=== PATIENT | male | born 1960 | race Two or more races ===

== ENCOUNTER 2017-10-31 12:44 | Inpatient (IN) | payer OTHER ==
[2017-10-31 15:31] VITALS: BMI 19.8
--- NOTE | 2017-10-31 18:37 | HP ---
CIWA Score - CIWA Score Nausea/Vomitin-No Nausea/No Vomiting Muscle Tremors: 3 Anxiety: 2 Agitation: 2 Paroxysmal Sweats: 2 Orientation: 0-Oriented Tacttile Disturbances: 0-None Auditory Disturbances: 0-None Visual Disturbances: 1-Very Mild Sensitivity Headache: 2-Mild CIWA-Ar Total Score: 12 Admission ROS S - HPI Chief Complaint: I am here for detox from alcohol Allergies/Adverse Reactions: Allergies Allergy/AdvReac Type Severity Reaction Status Date / Time No Known Allergies Allergy Verified 10/31/17 17:39 History of Present Illness: 57 yo male with hx of nicotine, alcohol, heroin, and cocaine dependence is her seeking detox. Patient currently enrolled MMTP at [facility] on methadone 70mg , last medicated today. PMHX: asthma / COPD, HTN,hypothyroid, depression, and anxiety. Denies suicuicidal / homical ideation or suicide. Reports longest period of sobrierity 3 years. Last detox at [facility] in 2014. - Ebola screening Have you traveled outside of the country in the last 21 days: No (N) Have you had contact with anyone from an Ebola affected area: No Have you been sick,other than usual withdrawal symptoms: No Do you have a fever: No - Review of Systems Constitutional: Chills, Loss of Appetite EENT: reports: No Symptoms Reported Respiratory: reports: Wheezing Cardiac: reports: No Symptoms Reported, Chest Tightness (reports occurs with asthma flare) GI: reports: Nausea, Poor Fluid Intake : reports: No Symptoms Reported Musculoskeletal: reports: Neck Pain Neuro: reports: Headache Endocrine: reports: See HPI Hematology: reports: No Symptoms Reported Psychiatric: reports: Orientated x3, Anxious Other Systems: Reviewed and Negative Patient History - Patient Medical History Hx Anemia: No Hx Asthma: Yes Hx Chronic Obstructive Pulmonary Disease (COPD): No Hx Cancer: No Hx Cardiac Disorders: No Hx Congestive Heart Failure: No Hx Hypertension: Yes Hx Hypercholesterolemia: No Hx Pacemaker: No HX Cerebrovascular Accident: No Hx Seizures: No Hx Dementia: No Hx Diabetes: No Hx Gastrointestinal Disorders: No Hx Liver Disease: No Hx Genitourinary Disorders: No Hx Sexually Transmitted Disorders: Yes (syphillis ) Hx Renal Disease (ESRD): No Hx Thyroid Disease: Yes (ON SYNTHROID 150 MCG DAILY) Hx Human Immunodeficiency Virus (HIV): No (NEGATIVE IN 2011) Hx Hepatitis C: No Hx Depression: Yes Hx Suicide Attempt: No Hx Bipolar Disorder: No Hx Schizophrenia: No - Patient Surgical History Past Surgical History: No Hx Neurologic Surgery: No Hx Cataract Extraction: No Hx Cardiac Surgery: No Hx Lung Surgery: No Hx Breast Surgery: No Hx Breast Biopsy: No Hx Abdominal Surgery: No Hx Appendectomy: No Hx Cholecystectomy: No Hx Genitourinary Surgery: No Hx Section: No Hx Orthopedic Surgery: No Anesthesia Reaction: No - PPD History Previous Implant?: Yes Documented Results: Negative w/proof Implanted On Prior [facility] Admission?: Yes Date: 09/02/14 PPD to be Administered?: Yes - Reproductive History Patient is a Female of Child Bearing Age (11 -55 yrs old): No - Smoking Cessation Smoking history: Current every day smoker Have you smoked in the past 12 months: Yes Aproximately how many cigarettes per day: 5 Cigars Per Day: 0 Hx Chewing Tobacco Use: No Initiated information on smoking cessation: Yes 'Breaking Loose' booklet given: 10/31/17 - Substance & Tx. History Hx Alcohol Use: Yes Hx Substance Use: Yes Substance Use Type: Alcohol, Cocaine Hx Substance Use Treatment: Yes ([facility] 2014) - Substances Abused Alcohol Route: Oral Frequency: Daily Amount used: beer- 1 six pack Age of first use: 24 Date of Last Use: 10/31/17 Cocaine Route: Inhalation Frequency: Daily Amount used: 1 bag Age of first use: 29 Date of Last Use: 10/27/17 Family Disease History - Family Disease History Family Disease History: Other: Mother (thyroid disease ) Admission Physical Exam S - Vital Signs Vital Signs: Vital Signs - 24 hr 10/31/17 15:28 Temperature 97.2 F L Pulse Rate 72 Respiratory 20 Rate Blood Pressure 119/72 - Physical General Appearance: Yes: Disheveled, Alcohol on Breath, Thin, Sweating, Anxious HEENTM: Yes: EOMI, Hearing grossly Normal, Normal ENT Inspection, Normocephalic , Normal Voice, RUPALI, Pharynx Normal, Tm's normal Respiratory: Yes: Chest Non-Tender, No Respiratory Distress, No Accessory Muscle Use, Wheezing Breast: Yes: Breast Exam Deferred Cardiology: Yes: Regular Rhythm, Regular Rate Abdominal: Yes: Normal Bowel Sounds, Non Tender, Flat Genitourinary: Yes: Within Normal Limits Back: Yes: Normal Inspection Musculoskeletal: Yes: full range of Motion, Gait Steady, Pelvis Stable, Back pain, Other Neurological: Yes: 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, Fully Oriented, Alert, Motor Strength 5/5, Depressed Affect Integumentary: Yes: Within Normal Limits Lymphatic: Yes: Within Normal Limits - Diagnostic (1) Alcohol dependence with withdrawal Current Visit: Yes Status: Acute (2) Cocaine dependence Current Visit: Yes Status: Active (3) Essential hypertension Current Visit: Yes Status: Chronic (4) Hypothyroidism Current Visit: Yes Status: Chronic (5) Methadone maintenance therapy patient Current Visit: Yes Status: Chronic Comment: on methadone 70 mg, dose pending verification (6) Nicotine dependence Current Visit: Yes Status: Acute Qualifiers: Nicotine product type: cigarettes (7) Wheezing Current Visit: Yes Status: Acute (8) Neck pain Current Visit: Yes Status: Acute Cleared for Admission S - Detox or Rehab [facility] Level of Care: Medically Managed Detox Regimen/Protocol: Librium [facility] Breath Alcohol Content Breath Alcohol Content: 0.016 Urine Drug Screen - Results Drug Screen Negative: No Urine Drug Screen Results: MTD-Methadone
[2017-10-31] MEDS ORDERED: MAGNESIUM HYDROX 2400MG/30ML ORAL SUSPENSION 30 ML CUP PO PRN (18:56)
[2017-10-31] MEDS ORDERED: chlordiazePOXIDE HCL 25 MG CAPSULE PO ONE (18:56)
[2017-10-31] MEDS ORDERED: MAG HYDROX/AL HYDROX/SIMETH 30 ML UNIT-DOSE CUP PO PRN (18:56)
[2017-10-31] MEDS ORDERED: IBUPROFEN 400 MG TABLET (FP) PO PRN (18:56)
[2017-10-31] MEDS ORDERED: P-EPHED 60MG/TRIPROLIDI 2.5MG TABLET PO PRN (18:56)
[2017-10-31] MEDS ORDERED: chlordiazePOXIDE HCL 25 MG CAPSULE PO PRN (18:56)
[2017-10-31] MEDS ORDERED: MENTHOL/PHENOL 1 EACH UD MM PRN (18:56)
[2017-10-31] MEDS ORDERED: LOPERAMIDE HCL 2 MG CAPSULE PO PRN (18:56)
[2017-10-31] MEDS ORDERED: MAGNESIUM CITRATE 300 ML BOTTLE PO PRN (18:56)
[2017-10-31] MEDS ORDERED: ACETAMINOPHEN 325 MG TABLET (FP) PO PRN (18:56)
[2017-10-31] MEDS ORDERED: guaiFENesin/D-METHORPHAN HB 10 ML UNIT-DOSE CUPS PO PRN (18:56)
[2017-10-31] MEDS ORDERED: hydrOXYzine PAMOATE 50 MG CAPSULE (FP) PO PRN (18:56)
[2017-10-31] MEDS ORDERED: MELATONIN 5 MG TABLETS PO PRN (22:00)
[2017-10-31] MEDS: THIAMINE HCL 100 MG TABLET (FP) PO SCH (22:16)
[2017-10-31] MEDS: chlordiazePOXIDE HCL 25 MG CAPSULE PO SCH (22:17)
[2017-10-31] MEDS: ALBUTEROL SO4 0.083% IH SOL 2.5 MG/3 ML VIAL.NEB. NEB PRN (23:38)
[2017-11-01 02:10] LABS: URINE APPEARANCE CLEAR; URINE BILIRUBIN NEGATIVE (<2.0 mg/dL); URINE BLOOD NEGATIVE (NEGATIVE); URINE COLOR COLORLESS; URINE GLUCOSE (UA) NEGATIVE (NEGATIVE); URINE KETONE NEGATIVE (NEGATIVE); URINE LEUK ESTERASE NEGATIVE (NEGATIVE); URINE NITRITE NEGATIVE (NEGATIVE); URINE PROTEIN NEGATIVE (NEGATIVE); URINE UROBILINOGEN NEGATIVE mg/dL (0.2-1.0)
[2017-11-01] MEDS ORDERED: LEVOTHYROXINE NA 100 MCG TABLET (FP) ONE (05:42)
[2017-11-01] MEDS ORDERED: LEVOTHYROXINE NA 25 MCG TABLET (FP) ONE (05:42)
[2017-11-01] MEDS: chlordiazePOXIDE HCL 25 MG CAPSULE PO SCH ×4 (05:42→22:18)
[2017-11-01] MEDS: LEVOTHYROXINE 100 MCG, LEVOTHYROXINE 50 MCG PO SCH (06:04)
[2017-11-01] MEDS ORDERED: LEVOTHYROXINE NA 100 MCG TABLET (FP) PO SCH (07:00)
--- NOTE | 2017-11-01 09:34 | EKG ---
Test Reason : Blood Pressure : / mmHG Vent. Rate : 081 BPM Atrial Rate : 081 BPM P-R Int : 154 ms QRS Dur : 088 ms QT Int : 380 ms P-R-T Axes : 075 071 090 degrees QTc Int : 441 ms NORMAL SINUS RHYTHM MINIMAL VOLTAGE CRITERIA FOR LVH, MAY BE NORMAL VARIANT NONSPECIFIC ST AND T WAVE ABNORMALITY ABNORMAL ECG NO PREVIOUS ECGS AVAILABLE Confirmed by CARSON SULLIVAN MD ([id number]) on 11/01/2017 9:34:24 AM Referred By: Confirmed By:CARSON SULLIVAN MD
[2017-11-01 09:56] LABS: HEMATOCRIT 39.6 % (35.4-49); HEMOGLOBIN 13.5 GM/dL (11.7-16.9); MCH 33.9 pg (25.7-33.7); MCHC 34.1 g/dl (32.0-35.9); MEAN CELL VOLUME 99.4 fl (80-96); MEAN PLT VOLUME 8.3 fl (7.5-11.1); PLATELET COUNT 232 K/MM3 (134-434); RBC 3.98 M/mm3 (4.00-5.60); WHITE BLOOD COUNT 6.6 K/mm3 (4.0-10.0)
[2017-11-01 09:57] LABS: ALBUMIN 3.4 g/dl (3.4-5.0); ANION GAP 5 (8-16); BLOOD UREA NITROGEN 8 mg/dL (7-18); CALCIUM 8.7 mg/dL (8.5-10.1); CHLORIDE 101 mmol/L (98-107); CO2 33 mmol/L (21-32); GLUCOSE,RANDOM 85 mg/dL (74-106); SODIUM 139 mmol/L (136-145)
[2017-11-01 10:03] LABS: ALK PHOS 101 U/L (45-117); BILIRUBIN,TOTAL 0.2 mg/dL (0.2-1.0); CREATININE 0.5 mg/dL (0.7-1.3); SGOT/AST 52 U/L (15-37); SGPT/ALT 68 U/L (12-78); TOT PROT 7.2 g/dl (6.4-8.2)
[2017-11-01] MEDS: PRENATAL VITAMINS W/ FOLIC ACID TABLET (FP) PO SCH (10:31)
[2017-11-01] MEDS: amLODIPine BESYLATE 10 MG TABLET (FP) PO SCH (10:31)
[2017-11-01] MEDS: TIOTROPIUM BROMIDE 18 MCG CAPSULES IH SCH (10:31)
[2017-11-01] MEDS: ASPIRIN 81 MG CHEWABLE TABLETS PO SCH (10:31)
[2017-11-01] MEDS ORDERED: METHADONE HCL 10 MG TABLET PO ONE (10:42)
[2017-11-01] MEDS ORDERED: METHADONE 40 MG, METHADONE 30 MG PO ONE (10:55)
[2017-11-01] MEDS ORDERED: METHADONE HCL 10 MG TABLET ONE (12:16)
[2017-11-01] MEDS ORDERED: METHADONE HCL 40 MG DISPERSABLE TABLET ONE (12:17)
--- NOTE | 2017-11-01 12:45 | CONSULT ---
[facility] Psychiatric Consult - Data Date of interview: 11/01/17 Admission source: [facility] Identifying data: Readmission to [facility] for this 57 y/o male seeking detox treatment on for alcohol and cocaine dependence.Patient is single,a father of three,domiciled,unemployed and supported on food stamps. Substance Abuse History: Confirmed by patient in this session.Details in current [facility] report as follows : Smoking history: Current every day smoker. Have you smoked in the past 12 months: Yes. Aproximately how many cigarettes per day: 5. Cigars Per Day: 0. Hx Chewing Tobacco Use: No. Initiated information on smoking cessation: Yes. 'Breaking Loose' booklet given: . - Substance & Tx. History. Hx Alcohol Use: Yes. Hx Substance Use: Yes. Substance Use Type: Alcohol, Cocaine. Hx Substance Use Treatment: Yes ([facility] 2014). - Substances Abused. Alcohol. Route: Oral. Frequency: Daily. Amount used: beer- 1 six pack. Age of first use: 24. Date of Last Use: . Cocaine. Route: Inhalation. Frequency: Daily. Amount used: 1 bag. Age of first use: 29. Date of Last Use: 10/27/17 Medical History: Hypertension,bronchial asthma,hypothyroidism,COPD and a distant history of treatment for syphilis. Psychiatric History: Patient denies history of psychiatric hospitalizations or suicide attempts.Mr Mcgill is currently on methadone maintenance (70 mg/day). Physical/Sexual Abuse/Trauma History: Patient denies. Additional Comment: Urine Drug Screen Results: MTD-Methadone.Noted. Mental Status Exam - Mental Status Exam Alert and Oriented to: Time, Place, Person Cognitive Function: Grossly Intact Patient Appearance: Unkempt (thin habitus,emaciated), Disheveled Mood: Nervous, Withdrawn Affect: Mood Congruent, Constricted Patient Behavior: Passive, Fatigued, Cooperative Speech Pattern: Clear Voice Loudness: Normal Thought Process: Goal Oriented Thought Disorder: Not Present Hallucinations: Denies Suicidal Ideation: Denies Homicidal Ideation: Denies Insight/Judgement: Poor Sleep: Poorly, Difficulty falling asleep Appetite: Poor, Weight loss Muscle strength/Tone: Normal Gait/Station: Normal Psychiatric Findings - Problem List ([place] 1, 2,3) (1) Opioid dependence on agonist therapy Current Visit: Yes Status: Acute (2) Alcohol dependence with withdrawal Current Visit: Yes Status: Acute (3) Cocaine dependence Current Visit: Yes Status: Active Comment: Confirmed by patient.Last use of cocaine : 10/27/17 (toxicology is negative for cocaine). (4) Nicotine dependence Current Visit: Yes Status: Acute Qualifiers: Nicotine product type: cigarettes (5) Insomnia Current Visit: Yes Status: Acute - Initial Treatment Plan Initial Treatment Plan: Psychoeducation.Sleep hygiene.Detoxification in progress.Ambien 5 mg po hs prn.Side effects/benefits discussed with the patient.Mr Mcgill agrees with this careplan.Observation.
--- NOTE | 2017-11-01 13:08 | PN ---
[facility] CIWA - CIWA Score Nausea/Vomitin-No Nausea/No Vomiting Muscle Tremors: 4-Moderate,w/Arms Extend Anxiety: 4-Mod. Anxious/Guarded Agitation: 4-Moderately Restless Paroxysmal Sweats: 1-Minimal Palms Moist Orientation: 0-Oriented Tacttile Disturbances: 0-None Auditory Disturbances: 0-None Visual Disturbances: 0-None Headache: 0-None Present CIWA-Ar Total Score: 13 S Progress Note (SOAP) Subjective: ANXIETY,TREMORS,SWEATS,INTERMITTENT SLEEP. Objective: 11/01/17 13:11 Vital Signs Temperature 97.2 F L 11/01/17 09:08 Pulse Rate 90 11/01/17 12:00 Respiratory Rate 18 11/01/17 12:00 Blood Pressure 114/76 11/01/17 09:08 O2 Sat by Pulse Oximetry (%) Laboratory Last Values WBC 6.6 K/mm3 (4.0-10.0) 11/01/17 08:00 RBC 3.98 M/mm3 (4.00-5.60) L 11/01/17 08:00 Hgb 13.5 GM/dL (11.7-16.9) D 11/01/17 08:00 Hct 39.6 % (35.4-49) 11/01/17 08:00 MCV 99.4 fl (80-96) H 11/01/17 08:00 MCH 33.9 pg (25.7-33.7) H 11/01/17 08:00 MCHC 34.1 g/dl (32.0-35.9) 11/01/17 08:00 RDW 13.0 % (11.9-15.9) 11/01/17 08:00 Plt Count 232 K/MM3 (134-434) 11/01/17 08:00 MPV 8.3 fl (7.5-11.1) 11/01/17 08:00 Sodium 139 mmol/L (136-145) 11/01/17 08:00 Potassium 4.0 mmol/L (3.5-5.1) 11/01/17 08:00 Chloride 101 mmol/L (98-107) 11/01/17 08:00 Carbon Dioxide 33 mmol/L (21-32) H 11/01/17 08:00 Anion Gap 5 (8-16) L 11/01/17 08:00 BUN 8 mg/dL (7-18) D 11/01/17 08:00 Creatinine 0.5 mg/dL (0.7-1.3) L 11/01/17 08:00 Creat Clearance w eGFR > 60 (>60) 11/01/17 08:00 Random Glucose 85 mg/dL (74-106) D 11/01/17 08:00 Calcium 8.7 mg/dL (8.5-10.1) 11/01/17 08:00 Total Bilirubin 0.2 mg/dL (0.2-1.0) D 11/01/17 08:00 AST 52 U/L (15-37) H D 11/01/17 08:00 ALT 68 U/L (12-78) D 11/01/17 08:00 Alkaline Phosphatase 101 U/L (45-117) 11/01/17 08:00 Total Protein 7.2 g/dl (6.4-8.2) 11/01/17 08:00 Albumin 3.4 g/dl (3.4-5.0) 11/01/17 08:00 Urine Color Colorless 11/01/17 00:05 Urine Appearance Clear 11/01/17 00:05 Urine pH 7.0 (5.0-8.0) 11/01/17 00:05 Ur Specific [place] 1.002 (1.001-1.035) 11/01/17 00:05 Urine Protein Negative (NEGATIVE) 11/01/17 00:05 Urine Glucose (UA) Negative (NEGATIVE) 11/01/17 00:05 Urine Ketones Negative (NEGATIVE) 11/01/17 00:05 Urine Blood Negative (NEGATIVE) 11/01/17 00:05 Urine Nitrite Negative (NEGATIVE) 11/01/17 00:05 Urine Bilirubin Negative (<2.0 mg/dL) 11/01/17 00:05 Urine Urobilinogen Negative mg/dL (0.2-1.0) 11/01/17 00:05 Ur Leukocyte Esterase Negative (NEGATIVE) 11/01/17 00:05 Assessment: 11/01/17 13:12 WITHDRAWAL SX Plan: CONTINUE DETOX INCREASE PO FLUIDS
[2017-11-01 15:23] LABS: RPR REACTIVE 1:1 (NONREACTIVE)
[2017-11-01 15:24] LABS: TREPONEMA ANTIBODY PREVIOUSLY REACTIVE (NONREACTIVE)
[2017-11-01] MEDS ORDERED: ZOLPIDEM TARTRATE 5 MG TABLET PO PRN (22:00)
[2017-11-01] MEDS: THIAMINE HCL 100 MG TABLET (FP) PO SCH (22:18)
[2017-11-02] MEDS ORDERED: METHADONE HCL 10 MG TABLET ONE (04:43)
[2017-11-02] MEDS ORDERED: LEVOTHYROXINE NA 100 MCG TABLET (FP) ONE (04:44)
[2017-11-02] MEDS ORDERED: METHADONE HCL 40 MG DISPERSABLE TABLET ONE (04:44)
[2017-11-02] MEDS ORDERED: LEVOTHYROXINE NA 25 MCG TABLET (FP) ONE (04:44)
[2017-11-02] MEDS: chlordiazePOXIDE HCL 25 MG CAPSULE PO SCH ×3 (05:41→17:41)
[2017-11-02] MEDS: METHADONE 40 MG, METHADONE 30 MG PO SCH (05:42)
[2017-11-02] MEDS ORDERED: METHADONE HCL 10 MG TABLET PO SCH (06:00)
[2017-11-02] MEDS: LEVOTHYROXINE 100 MCG, LEVOTHYROXINE 50 MCG PO SCH (07:44)
[2017-11-02] MEDS: ASPIRIN 81 MG CHEWABLE TABLETS PO SCH (10:37)
[2017-11-02] MEDS: PRENATAL VITAMINS W/ FOLIC ACID TABLET (FP) PO SCH (10:37)
[2017-11-02] MEDS: amLODIPine BESYLATE 10 MG TABLET (FP) PO SCH (10:38)
[2017-11-02] MEDS: TIOTROPIUM BROMIDE 18 MCG CAPSULES IH SCH (10:38)
--- NOTE | 2017-11-02 17:56 | PN ---
[facility] CIWA - CIWA Score Nausea/Vomitin-No Nausea/No Vomiting Muscle Tremors: None Anxiety: 4-Mod. Anxious/Guarded Agitation: 3 Paroxysmal Sweats: 3 Orientation: 2-Disoriented Date<2 days Tacttile Disturbances: 0-None Auditory Disturbances: 1-Very Mild Visual Disturbances: 2-Mild Sensitivity Headache: 0-None Present CIWA-Ar Total Score: 15 S Progress Note (SOAP) Subjective: Stomach Cramping, Body Aches, Fatigue, Sweating. Objective: PATIENT A & O X 2 (UNCERTAIN ABOUT CURRENT DAY/ DATE). PATIENT OBSERVED AMBULATING ON UNIT. NO ACUTE DISTRESS. 11/02/17 17:57 Vital Signs Temperature 98.4 F 11/02/17 10:37 Pulse Rate 78 11/02/17 10:37 Respiratory Rate 20 11/02/17 10:37 Blood Pressure 124/90 11/02/17 10:37 O2 Sat by Pulse Oximetry (%) Laboratory Tests 11/01/17 11/01/17 11/01/17 00:05 08:00 08:00 WBC 6.6 RBC 3.98 L Hgb 13.5 D Hct 39.6 MCV 99.4 H MCH 33.9 H MCHC 34.1 RDW 13.0 Plt Count 232 MPV 8.3 Sodium 139 Potassium 4.0 Chloride 101 Carbon Dioxide 33 H Anion Gap 5 L BUN 8 D Creatinine 0.5 L Creat Clearance w eGFR > 60 Random Glucose 85 D Calcium 8.7 Total Bilirubin 0.2 D AST 52 H D ALT 68 D Alkaline Phosphatase 101 Total Protein 7.2 Albumin 3.4 Urine Color Colorless Urine Appearance Clear Urine pH 7.0 Ur Specific [place] 1.002 Urine Protein Negative Urine Glucose (UA) Negative Urine Ketones Negative Urine Blood Negative Urine Nitrite Negative Urine Bilirubin Negative Urine Urobilinogen Negative Ur Leukocyte Esterase Negative RPR Titer T.pallidum Ab (A) 11/01/17 08:00 WBC RBC Hgb Hct MCV MCH MCHC RDW Plt Count MPV Sodium Potassium Chloride Carbon Dioxide Anion Gap BUN Creatinine Creat Clearance w eGFR Random Glucose Calcium Total Bilirubin AST ALT Alkaline Phosphatase Total Protein Albumin Urine Color Urine Appearance Urine pH Ur Specific [place] Urine Protein Urine Glucose (UA) Urine Ketones Urine Blood Urine Nitrite Urine Bilirubin Urine Urobilinogen Ur Leukocyte Esterase RPR Titer Reactive 1:1 H T.pallidum Ab (A) Previously reactive LABS NOTED. Assessment: 11/02/17 17:58 WITHDRAWAL SYMPTOMS. Plan: CONTINUE DETOX.
[2017-11-02] MEDS: ALBUTEROL SO4 0.083% IH SOL 2.5 MG/3 ML VIAL.NEB. NEB PRN (18:47)
[2017-11-02] MEDS: chlordiazePOXIDE 5 MG CAPSULE PO SCH (22:28)
[2017-11-02] MEDS: THIAMINE HCL 100 MG TABLET (FP) PO SCH (22:28)
[2017-11-03] MEDS ORDERED: METHADONE HCL 10 MG TABLET ONE (04:18)
[2017-11-03] MEDS ORDERED: METHADONE HCL 40 MG DISPERSABLE TABLET ONE (04:19)
[2017-11-03] MEDS ORDERED: LEVOTHYROXINE NA 25 MCG TABLET (FP) ONE (04:21)
[2017-11-03] MEDS ORDERED: LEVOTHYROXINE NA 100 MCG TABLET (FP) ONE (04:21)
[2017-11-03] MEDS: METHADONE 40 MG, METHADONE 30 MG PO SCH (05:56)
[2017-11-03] MEDS: chlordiazePOXIDE 5 MG CAPSULE PO SCH ×3 (05:56→17:14)
[2017-11-03] MEDS: LEVOTHYROXINE 100 MCG, LEVOTHYROXINE 50 MCG PO SCH (07:38)
[2017-11-03] MEDS: ASPIRIN 81 MG CHEWABLE TABLETS PO SCH (10:38)
[2017-11-03] MEDS: PRENATAL VITAMINS W/ FOLIC ACID TABLET (FP) PO SCH (10:38)
[2017-11-03] MEDS: amLODIPine BESYLATE 10 MG TABLET (FP) PO SCH (10:38)
[2017-11-03] MEDS: TIOTROPIUM BROMIDE 18 MCG CAPSULES IH SCH (10:38)
--- NOTE | 2017-11-03 12:35 | PN ---
[facility] Progress Note (SOAP) Subjective: sweats interrupted sleep body aches Objective: 11/03/17 12:34 Vital Signs Temperature 97.2 F L 11/03/17 10:47 Pulse Rate 76 11/03/17 10:47 Respiratory Rate 18 11/03/17 10:47 Blood Pressure 107/67 11/03/17 10:47 O2 Sat by Pulse Oximetry (%) aaox3 ambulating no acute distress Assessment: 11/03/17 12:36 withdrawal sx Plan: continue detox increase fluids d/c in am
[2017-11-03] MEDS: chlordiazePOXIDE HCL 10 MG CAPSULE PO SCH (22:24)
[2017-11-03] MEDS: THIAMINE HCL 100 MG TABLET (FP) PO SCH (22:24)
[2017-11-04] MEDS ORDERED: METHADONE HCL 40 MG DISPERSABLE TABLET ONE (03:17)
[2017-11-04] MEDS ORDERED: LEVOTHYROXINE NA 25 MCG TABLET (FP) ONE (03:17)
[2017-11-04] MEDS ORDERED: METHADONE HCL 10 MG TABLET ONE (03:17)
[2017-11-04] MEDS ORDERED: LEVOTHYROXINE NA 100 MCG TABLET (FP) ONE (03:18)
[2017-11-04] MEDS: chlordiazePOXIDE HCL 10 MG CAPSULE PO SCH ×2 (05:23→11:17)
[2017-11-04] MEDS: METHADONE 40 MG, METHADONE 30 MG PO SCH (05:23)
[2017-11-04] MEDS: LEVOTHYROXINE 100 MCG, LEVOTHYROXINE 50 MCG PO SCH (06:45)
[2017-11-04] MEDS: PRENATAL VITAMINS W/ FOLIC ACID TABLET (FP) PO SCH (10:27)
[2017-11-04] MEDS: ASPIRIN 81 MG CHEWABLE TABLETS PO SCH (10:27)
[2017-11-04] MEDS: amLODIPine BESYLATE 10 MG TABLET (FP) PO SCH (10:27)
[2017-11-04] MEDS: TIOTROPIUM BROMIDE 18 MCG CAPSULES IH SCH (10:27)
--- NOTE | 2017-11-04 12:13 | PN ---
[facility] Progress Note (SOAP) Subjective: PT APPEARS VERY WEAK AND TIRED. SPEECH SLIGHTLY SLURRED. C/O SORE THROAT AND RUNNY NOSE. 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 Objective: 11/04/17 12:09 Vital Signs Temperature 96.3 F L 11/04/17 09:23 Pulse Rate 91 H 11/04/17 09:23 Respiratory Rate 18 11/04/17 09:23 Blood Pressure 120/74 11/04/17 09:23 O2 Sat by Pulse Oximetry (%) Laboratory Last Values WBC 6.6 K/mm3 (4.0-10.0) 11/01/17 08:00 RBC 3.98 M/mm3 (4.00-5.60) L 11/01/17 08:00 Hgb 13.5 GM/dL (11.7-16.9) D 11/01/17 08:00 Hct 39.6 % (35.4-49) 11/01/17 08:00 MCV 99.4 fl (80-96) H 11/01/17 08:00 MCH 33.9 pg (25.7-33.7) H 11/01/17 08:00 MCHC 34.1 g/dl (32.0-35.9) 11/01/17 08:00 RDW 13.0 % (11.9-15.9) 11/01/17 08:00 Plt Count 232 K/MM3 (134-434) 11/01/17 08:00 MPV 8.3 fl (7.5-11.1) 11/01/17 08:00 Sodium 139 mmol/L (136-145) 11/01/17 08:00 Potassium 4.0 mmol/L (3.5-5.1) 11/01/17 08:00 Chloride 101 mmol/L (98-107) 11/01/17 08:00 Carbon Dioxide 33 mmol/L (21-32) H 11/01/17 08:00 Anion Gap 5 (8-16) L 11/01/17 08:00 BUN 8 mg/dL (7-18) D 11/01/17 08:00 Creatinine 0.5 mg/dL (0.7-1.3) L 11/01/17 08:00 Creat Clearance w eGFR > 60 (>60) 11/01/17 08:00 Random Glucose 85 mg/dL (74-106) D 11/01/17 08:00 Calcium 8.7 mg/dL (8.5-10.1) 11/01/17 08:00 Total Bilirubin 0.2 mg/dL (0.2-1.0) D 11/01/17 08:00 AST 52 U/L (15-37) H D 11/01/17 08:00 ALT 68 U/L (12-78) D 11/01/17 08:00 Alkaline Phosphatase 101 U/L (45-117) 11/01/17 08:00 Total Protein 7.2 g/dl (6.4-8.2) 11/01/17 08:00 Albumin 3.4 g/dl (3.4-5.0) 11/01/17 08:00 Urine Color Colorless 11/01/17 00:05 Urine Appearance Clear 11/01/17 00:05 Urine pH 7.0 (5.0-8.0) 11/01/17 00:05 Ur Specific [place] 1.002 (1.001-1.035) 11/01/17 00:05 Urine Protein Negative (NEGATIVE) 11/01/17 00:05 Urine Glucose (UA) Negative (NEGATIVE) 11/01/17 00:05 Urine Ketones Negative (NEGATIVE) 11/01/17 00:05 Urine Blood Negative (NEGATIVE) 11/01/17 00:05 Urine Nitrite Negative (NEGATIVE) 11/01/17 00:05 Urine Bilirubin Negative (<2.0 mg/dL) 11/01/17 00:05 Urine Urobilinogen Negative mg/dL (0.2-1.0) 11/01/17 00:05 Ur Leukocyte Esterase Negative (NEGATIVE) 11/01/17 00:05 RPR Titer Reactive 1:1 (NONREACTIVE) H 11/01/17 08:00 T.pallidum Ab (MHA) Previously reactive (NONREACTIVE) 11/01/17 08:00 THROAT:NO REDNESS OR SWELLING OR EXUDATES NOTED. NASAL DRAINAGE Assessment: 11/04/17 12:10 WITHDRAWAL SX R/O URI-VIRAL Plan: CONTINUE DETOX MONITOR PT AND INCREASE PO FLUIDS REASSESS IN THE MORNING FOR DISCHARGE.
[2017-11-04] MEDS: THIAMINE HCL 100 MG TABLET (FP) PO SCH (22:08)
[2017-11-05] MEDS ORDERED: METHADONE HCL 40 MG DISPERSABLE TABLET ONE (04:41)
[2017-11-05] MEDS ORDERED: LEVOTHYROXINE NA 25 MCG TABLET (FP) ONE (04:41)
[2017-11-05] MEDS ORDERED: METHADONE HCL 10 MG TABLET ONE (04:41)
[2017-11-05] MEDS ORDERED: LEVOTHYROXINE NA 100 MCG TABLET (FP) ONE (04:42)
[2017-11-05] MEDS: METHADONE 40 MG, METHADONE 30 MG PO SCH (05:30)
[2017-11-05] MEDS: LEVOTHYROXINE 100 MCG, LEVOTHYROXINE 50 MCG PO SCH (07:20)
[2017-11-05] MEDS: amLODIPine BESYLATE 10 MG TABLET (FP) PO SCH (10:33)
[2017-11-05] MEDS: PRENATAL VITAMINS W/ FOLIC ACID TABLET (FP) PO SCH (10:33)
[2017-11-05] MEDS: ASPIRIN 81 MG CHEWABLE TABLETS PO SCH (10:33)
[2017-11-05] MEDS: TIOTROPIUM BROMIDE 18 MCG CAPSULES IH SCH (10:34)
[2017-11-05] MEDS ORDERED: ALBUTEROL SO4 18 GM HFA INHALER IH PRN (11:52)
--- NOTE | 2017-11-05 11:56 | PN ---
[facility] Progress Note (SOAP) Subjective: PT IS ALERT O X 3. DETOX COMPLETED. HOWEVER PT C/O DIZZINESS AND DIFFICULTY CATCHING HIS BREATH. ALSO C/O THROAT PAIN BUT NO COUGH OR RUNNING NOSE.OOB WITH GAIT SLIGHTLY UNSTEADY. DENIES N/V/D. REPORTS GETTING CHECKED OUT FOR SIMILAR COMPLAINT AT [facility] 2 WEEKS AGO AND CATSCAN AND TESTS DONE WAS NEGATIVE AND WENT HOME. PT IS CURRENTLY AT A [facility] AND WILL FOLLOW UP WITH REFERRAL TREATMENT PROGRAM AFTER D/C AT [facility] PER COUNSELOR CHAI SCHULTZ. Objective: 11/05/17 12:15 Vital Signs Temperature 96.2 F L 11/05/17 09:11 Pulse Rate 85 11/05/17 09:11 Respiratory Rate 18 11/05/17 09:11 Blood Pressure 115/71 11/05/17 09:11 O2 Sat by Pulse Oximetry (%) Laboratory Last Values WBC 6.6 K/mm3 (4.0-10.0) 11/01/17 08:00 RBC 3.98 M/mm3 (4.00-5.60) L 11/01/17 08:00 Hgb 13.5 GM/dL (11.7-16.9) D 11/01/17 08:00 Hct 39.6 % (35.4-49) 11/01/17 08:00 MCV 99.4 fl (80-96) H 11/01/17 08:00 MCH 33.9 pg (25.7-33.7) H 11/01/17 08:00 MCHC 34.1 g/dl (32.0-35.9) 11/01/17 08:00 RDW 13.0 % (11.9-15.9) 11/01/17 08:00 Plt Count 232 K/MM3 (134-434) 11/01/17 08:00 MPV 8.3 fl (7.5-11.1) 11/01/17 08:00 Sodium 139 mmol/L (136-145) 11/01/17 08:00 Potassium 4.0 mmol/L (3.5-5.1) 11/01/17 08:00 Chloride 101 mmol/L (98-107) 11/01/17 08:00 Carbon Dioxide 33 mmol/L (21-32) H 11/01/17 08:00 Anion Gap 5 (8-16) L 11/01/17 08:00 BUN 8 mg/dL (7-18) D 11/01/17 08:00 Creatinine 0.5 mg/dL (0.7-1.3) L 11/01/17 08:00 Creat Clearance w eGFR > 60 (>60) 11/01/17 08:00 Random Glucose 85 mg/dL (74-106) D 11/01/17 08:00 Calcium 8.7 mg/dL (8.5-10.1) 11/01/17 08:00 Total Bilirubin 0.2 mg/dL (0.2-1.0) D 11/01/17 08:00 AST 52 U/L (15-37) H D 11/01/17 08:00 ALT 68 U/L (12-78) D 11/01/17 08:00 Alkaline Phosphatase 101 U/L (45-117) 11/01/17 08:00 Total Protein 7.2 g/dl (6.4-8.2) 11/01/17 08:00 Albumin 3.4 g/dl (3.4-5.0) 11/01/17 08:00 Urine Color Colorless 11/01/17 00:05 Urine Appearance Clear 11/01/17 00:05 Urine pH 7.0 (5.0-8.0) 11/01/17 00:05 Ur Specific [place] 1.002 (1.001-1.035) 11/01/17 00:05 Urine Protein Negative (NEGATIVE) 11/01/17 00:05 Urine Glucose (UA) Negative (NEGATIVE) 11/01/17 00:05 Urine Ketones Negative (NEGATIVE) 11/01/17 00:05 Urine Blood Negative (NEGATIVE) 11/01/17 00:05 Urine Nitrite Negative (NEGATIVE) 11/01/17 00:05 Urine Bilirubin Negative (<2.0 mg/dL) 11/01/17 00:05 Urine Urobilinogen Negative mg/dL (0.2-1.0) 11/01/17 00:05 Ur Leukocyte Esterase Negative (NEGATIVE) 11/01/17 00:05 RPR Titer Reactive 1:1 (NONREACTIVE) H 11/01/17 08:00 T.pallidum Ab (MHA) Previously reactive (NONREACTIVE) 11/01/17 08:00 LUNGS:CLEAR TO A/P PULSE OX: 97% ROOM AIR THROAT: NO REDNESS,SWELLING OR EXUDATE NOTED. Assessment: 11/05/17 12:15 SYNCOPE Plan: TRANSFER PT TO [facility] FOR EVALUATION AND TX. PT WILL FOLLOW UP WITH AFTERCARE AT [facility] [place] AFTER D/C.
[2017-11-05] MEDS: ALBUTEROL SO4 0.083% IH SOL 2.5 MG/3 ML VIAL.NEB. NEB PRN (12:21)
[2017-11-05 12:38] VITALS: BP 105/64; PULSE 73; TEMP 95.6
--- NOTE | 2017-11-05 13:21 | PN ---
[facility] Progress Note Note: PT REFUSED TO GO TO [facility] ER TO GET EVALUATED BEFORE GOING HOME. PT STATED HE WANTS TO GO TO [facility] IF HE NEEDS TO DO SO. PT BECAME VERY AGITATED THAT DOCTORS AND HOSPITALS ASK TOO MANY QUESTTIONS ABOUT HIS HEALTH WHEREVER AND WHENEVER HE GOES SOMEWHERE. PT SIGNED AGAINST RECEIVING FURTHER EVALUATION AT THE ER. HE APPEARS ALERT O X 3. NO OBVIOUS ACUTE DISTRESS. RECEI SYLVAIN NEBULIZER TX AND PULSE OX OF 93% TO 98%. PT REPORTS HE HAS ALL HIS MEDS AT HOME BUT NEEDS ALBUTEROL INHALER ONLY. PT WAS GIVEN SAME FOR HOME USE.
== END 2017-11-05 13:16 | disposition home or self-care (01) | DRG 773 ==
LOC: YASAS 12:44 → Y3N 18:37
PROVIDERS: ADMIT Internal Medicine; ATTEND Internal Medicine
PROC: HZ2ZZZZ Detoxification Services for Substance Abuse Treatment (ICD-10-PCS; principal; 2017-10-31)
DX: F11.20 Opioid dependence, uncomplicated (principal); F10.230 Alcohol dependence with withdrawal, uncomplicated; F14.20 Cocaine dependence, uncomplicated; F17.210 Nicotine dependence, cigarettes, uncomplicated; G47.00 Insomnia, unspecified; I10 Essential (primary) hypertension; E03.9 Hypothyroidism, unspecified; J45.909 Unspecified asthma, uncomplicated; R55 Syncope and collapse; Z86.19 Personal history of other infectious and parasitic diseases; R06.2 Wheezing; M54.2 Cervicalgia
CPT/HCPCS: 36415; 80053; 81003; 85027; 86593; 86780; 93005; 93010; 94640

== ENCOUNTER 2018-06-24 12:24 | Inpatient (IN) | payer OTHER ==
[2018-06-24 13:14] VITALS: BMI 19.6
--- NOTE | 2018-06-24 14:08 | HP ---
CIWA Score Nausea/Vomitin Muscle Tremors: 2 Anxiety: 2 Agitation: 2 Paroxysmal Sweats: 1-Minimal Palms Moist Orientation: 0-Oriented Tacttile Disturbances: 1-Very Mild Itch/Numbness Auditory Disturbances: 1-Very Mild Visual Disturbances: 0-None Headache: 2-Mild CIWA-Ar Total Score: 13 - Admission Criteria OASAS Guidelines: Admission for Medically Managed Detox: Requires at least one of the followin. CIWA greater than 12 2. Seizures within the past 24 hours 3. Delirium tremens within the past 24 hours 4. Hallucinations within the past 24 hours 5. Acute intervention needed for co occurring medical disorder 6. Acute intervention needed for co occurring psychiatric disorder 7. Severe withdrawal that cannot be handled at a lower level of care (continued vomiting, continued diarrhea, abnormal vital signs) requiring intravenous medication and/or fluids 8. Patient presents the following: CIWA greater than 12 Admission Criteria Met: Admission criteria met Admission ROS BHS - HPI Chief Complaint: i need help to stop drinking alcohol,cocaine Allergies/Adverse Reactions: Allergies Allergy/AdvReac Type Severity Reaction Status Date / Time No Known Allergies Allergy Verified 06/24/18 14:00 History of Present Illness: this 58 years old male with alcohol and cocaine dependence seeking detox, withdrawal symptom,last detox [facility] 10/31/17 to 11/05/17 syncope history of hypertension,hypothyroidism nicotine dependence weight loss mmtp 70 mgs/day,last medicated today copd longest period of sobriety 6 moths Exam Limitations: No Limitations - Ebola screening Have you traveled outside of the country in the last 21 days: No Have you had contact with anyone from an Ebola affected area: No Have you been sick,other than usual withdrawal symptoms: No - Review of Systems Constitutional: Loss of Appetite, Malaise, Night Sweats, Changes in sleep, Weakness, Unintentional Wgt. Loss EENT: reports: Nose Congestion Respiratory: reports: No Symptoms reported Cardiac: reports: No Symptoms Reported GI: reports: Diarrhea, Nausea, Vomiting, Abdominal cramping : reports: No Symptoms Reported Musculoskeletal: reports: Back Pain, Muscle Pain Integumentary: reports: Dryness Neuro: reports: Headache, Tremors Endocrine: reports: No Symptoms Reported Hematology: reports: No Symptoms Reported Psychiatric: reports: No Sypmtoms Reported, Judgement Intact, Mood/Affect Appropiate, Orientated x3 Patient History - Patient Medical History Hx Anemia: No Hx Asthma: Yes Hx Chronic Obstructive Pulmonary Disease (COPD): Yes (on spiriva) Hx Cancer: No Hx Cardiac Disorders: No Hx Congestive Heart Failure: No Hx Hypertension: Yes (on medication) Hx Hypercholesterolemia: No Hx Pacemaker: No HX Cerebrovascular Accident: No Hx Seizures: No Hx Dementia: No Hx Diabetes: No Hx Gastrointestinal Disorders: No Hx Liver Disease: No Hx Genitourinary Disorders: No Hx Sexually Transmitted Disorders: Yes (syphilis) Hx Renal Disease (ESRD): No Hx Thyroid Disease: Yes (ON SYNTHROID 150 MCG DAILY) Hx Human Immunodeficiency Virus (HIV): No (NEGATIVE IN 08/08) Hx Hepatitis C: No Hx Depression: Yes Hx Suicide Attempt: No Hx Bipolar Disorder: No Hx Schizophrenia: No Other Medical History: no suicidal,no homicidal - Patient Surgical History Past Surgical History: No Hx Neurologic Surgery: No Hx Cataract Extraction: No Hx Cardiac Surgery: No Hx Lung Surgery: No Hx Breast Surgery: No Hx Breast Biopsy: No Hx Abdominal Surgery: No Hx Appendectomy: No Hx Cholecystectomy: No Hx Genitourinary Surgery: No Hx Section: No Hx Orthopedic Surgery: No Anesthesia Reaction: No - PPD History Previous Implant?: Yes Documented Results: Negative w/proof Implanted On Prior [facility] Admission?: Yes Date: 11/02/17 Results: 0 mm PPD to be Administered?: No - Smoking Cessation Smoking history: Current every day smoker Have you smoked in the past 12 months: Yes Aproximately how many cigarettes per day: 5 Cigars Per Day: 0 Hx Chewing Tobacco Use: No Initiated information on smoking cessation: Yes 'Breaking Loose' booklet given: 06/24/18 - Substance & Tx. History Hx Alcohol Use: Yes Hx Substance Use: Yes Substance Use Type: Alcohol, Cocaine Hx Substance Use Treatment: Yes ([facility] 10/31/17 to 11/05/17) - Substances Abused Alcohol Route: Oral Frequency: Daily Amount used: 18 beers/ 1/2 pint liquor Age of first use: 14 Date of Last Use: 06/24/18 Cocaine Route: Inhalation Frequency: Daily Amount used: $30 Age of first use: 29 Date of Last Use: 06/23/18 Family Disease History - Family Disease History Family Disease History: Other: Mother (thyroid disease ) Admission Physical Exam BHS - Vital Signs Vital Signs: Vital Signs - 24 hr 06/24/18 13:13 Temperature 96 F L Pulse Rate 80 Respiratory 18 Rate Blood Pressure 157/92 - Physical General Appearance: Yes: Moderate Distress, Tremorous, Irritable, Sweating, Anxious HEENTM: Yes: Normal ENT Inspection, RUPALI, Pharynx Normal Respiratory: Yes: Lungs Clear, Normal Breath Sounds, No Respiratory Distress Neck: Yes: Within Normal Limits, Supple, Trachea in good position Breast: Yes: Within Normal Limits Cardiology: Yes: Within Normal Limits, Regular Rhythm, Regular Rate, S1, S2 Abdominal: Yes: Within Normal Limits, Normal Bowel Sounds, Non Tender, Flat, Soft Genitourinary: Yes: Within Normal Limits Back: Yes: Muscle Spasm Musculoskeletal: Yes: Back pain, Muscle Pain Extremities: Yes: Within Normal Limits, Normal Range of Motion, Tremors Neurological: Yes: [employer] II-XII NML intact, Alert, Motor Strength 5/5 Integumentary: Yes: Dry Lymphatic: Yes: Within Normal Limits - Diagnostic (1) Alcohol dependence with withdrawal Current Visit: No Status: Acute Qualifiers: Complication of substance-induced condition: uncomplicated Qualified Code(s ): F10.230 - Alcohol dependence with withdrawal, uncomplicated (2) Cocaine dependence Current Visit: No Status: Active Comment: Confirmed by patient.Last use of cocaine : 10/27/17 (toxicology is negative for cocaine). (3) Nicotine dependence Current Visit: No Status: Acute Qualifiers: Nicotine product type: cigarettes Substance use status: in withdrawal Qualified Code(s): F17.213 - Nicotine dependence, cigarettes, with withdrawal (4) Essential hypertension Current Visit: No Status: Chronic (5) Hypothyroidism Current Visit: No Status: Chronic (6) Methadone maintenance therapy patient Current Visit: No Status: Chronic Comment: on methadone 70 mg, dose pending verification Cleared for Admission [facility] - Detox or Rehab [facility] Level of Care: Medically Managed Detox Regimen/Protocol: Librium [facility] Breath Alcohol Content Breath Alcohol Content: 0.029 Urine Drug Screen - Results Drug Screen Negative: No Urine Drug Screen Results: ELVA-Cocaine, MTD-Methadone
[2018-06-24] MEDS ORDERED: chlordiazePOXIDE HCL 25 MG CAPSULE PO PRN (14:18)
[2018-06-24] MEDS ORDERED: MAGNESIUM CITRATE 300 ML BOTTLE PO PRN (14:19)
[2018-06-24] MEDS ORDERED: P-EPHED 60MG/TRIPROLIDI 2.5MG TABLET PO PRN (14:19)
[2018-06-24] MEDS ORDERED: MENTHOL/PHENOL 1 EACH UD MM PRN (14:19)
[2018-06-24] MEDS ORDERED: IBUPROFEN 400 MG TABLET (FP) PO PRN (14:19)
[2018-06-24] MEDS ORDERED: LOPERAMIDE HCL 2 MG CAPSULE PO PRN (14:19)
[2018-06-24] MEDS ORDERED: hydrOXYzine PAMOATE 25 MG CAPSULE (FP) PO PRN (14:19)
[2018-06-24] MEDS ORDERED: ACETAMINOPHEN 325 MG TABLET (FP) PO PRN (14:19)
[2018-06-24] MEDS ORDERED: guaiFENesin/D-METHORPHAN HB 10 ML UNIT-DOSE CUPS PO PRN (14:19)
[2018-06-24] MEDS ORDERED: MAGNESIUM HYDROX 2400MG/30ML ORAL SUSPENSION 30 ML CUP PO PRN (14:19)
[2018-06-24] MEDS ORDERED: MAG HYDROX/AL HYDROX/SIMETH 30 ML UNIT-DOSE CUP PO PRN (14:19)
[2018-06-24] MEDS: chlordiazePOXIDE HCL 25 MG CAPSULE PO SCH ×2 (18:18→22:01)
[2018-06-24] MEDS ORDERED: MELATONIN 5 MG TABLETS PO PRN (22:00)
[2018-06-24] MEDS: THIAMINE HCL 100 MG TABLET (FP) PO SCH (22:01)
[2018-06-24] MEDS: TIOTROPIUM BROMIDE 2.5 MCG (SPIRIVA) RESPIMAT INHALER IH SCH (23:25)
[2018-06-25] MEDS: chlordiazePOXIDE HCL 25 MG CAPSULE PO SCH ×4 (05:49→22:27)
[2018-06-25] MEDS: LEVOTHYROXINE 100 MCG, LEVOTHYROXINE 50 MCG PO SCH (06:33)
[2018-06-25] MEDS ORDERED: METHADONE HCL 10 MG TABLET PO SCH (07:30)
[2018-06-25] MEDS ORDERED: METHADONE HCL 40 MG DISPERSABLE TABLET ONE (08:43)
[2018-06-25] MEDS ORDERED: METHADONE HCL 10 MG TABLET ONE (08:44)
[2018-06-25] MEDS ORDERED: LEVOTHYROXINE NA 150 MCG TABLET PO SCH (10:00)
[2018-06-25] MEDS ORDERED: PATIENT'S OWN MEDICATION (NON-FORMULARY) (Tiotropium Bromide [Spiriva] 18 MCG) IH SCH (10:00)
[2018-06-25] MEDS: METHADONE 40 MG, METHADONE 30 MG PO SCH (10:28)
[2018-06-25] MEDS: ASPIRIN 81 MG CHEWABLE TABLETS PO SCH (10:28)
[2018-06-25] MEDS: PRENATAL VITAMINS W/ FOLIC ACID TABLET (FP) PO SCH (10:28)
[2018-06-25] MEDS: amLODIPine BESYLATE 10 MG TABLET (FP) PO SCH (10:28)
[2018-06-25 10:53] LABS: ALBUMIN 3.6 g/dl (3.4-5.0); ALK PHOS 115 U/L (45-117); ANION GAP 7 MMOL/L (8-16); BILIRUBIN,TOTAL 0.3 mg/dL (0.2-1); BLOOD UREA NITROGEN 9 mg/dL (7-18); CALCIUM 8.8 mg/dL (8.5-10.1); CHLORIDE 100 mmol/L (98-107); CO2 31 mmol/L (21-32); CREATININE 0.7 mg/dL (0.55-1.3); GLUCOSE,RANDOM 85 mg/dL (74-106); POTASSIUM 4.5 mmol/L (3.5-5.1); SGOT/AST 43 U/L (15-37); SGPT/ALT 31 U/L (13-61); SODIUM 137 mmol/L (136-145); TOT PROT 8.2 g/dl (6.4-8.2)
[2018-06-25 11:24] LABS: HEMATOCRIT 41.1 % (35.4-49); HEMOGLOBIN 14.6 GM/dL (11.7-16.9); MCH 34.8 pg (25.7-33.7); MCHC 35.5 g/dl (32.0-35.9); MEAN CELL VOLUME 97.9 fl (80-96); MEAN PLT VOLUME 9.3 fl (7.5-11.1); PLATELET COUNT 295 K/MM3 (134-434); RDW 13.8 % (11.9-15.9); WHITE BLOOD COUNT 8.3 K/mm3 (4.0-10.0)
--- NOTE | 2018-06-25 14:04 | PN ---
S CIWA - CIWA Score Nausea/Vomitin-Mild Nausea/No Vomiting Muscle Tremors: 3 Anxiety: 2 Agitation: 1-Slight > Activity Paroxysmal Sweats: 1-Minimal Palms Moist Orientation: 0-Oriented Tacttile Disturbances: 0-None Auditory Disturbances: 0-None Visual Disturbances: 0-None Headache: 1-Very Mild CIWA-Ar Total Score: 9 BHS Progress Note (SOAP) Subjective: tremor sweat trouble sleep at night Objective: 06/25/18 14:18 Vital Signs Temperature 97.9 F 06/25/18 13:54 Pulse Rate 69 06/25/18 13:54 Respiratory Rate 18 06/25/18 13:54 Blood Pressure 111/70 06/25/18 13:54 O2 Sat by Pulse Oximetry (%) Laboratory Last Values WBC 8.3 K/mm3 (4.0-10.0) 06/25/18 05:00 RBC 4.20 M/mm3 (4.00-5.60) 06/25/18 05:00 Hgb 14.6 GM/dL (11.7-16.9) 06/25/18 05:00 Hct 41.1 % (35.4-49) 06/25/18 05:00 MCV 97.9 fl (80-96) H 06/25/18 05:00 MCH 34.8 pg (25.7-33.7) H 06/25/18 05:00 MCHC 35.5 g/dl (32.0-35.9) 06/25/18 05:00 RDW 13.8 % (11.9-15.9) 06/25/18 05:00 Plt Count 295 K/MM3 (134-434) D 06/25/18 05:00 MPV 9.3 fl (7.5-11.1) D 06/25/18 05:00 Sodium 137 mmol/L (136-145) 06/25/18 05:00 Potassium 4.5 mmol/L (3.5-5.1) 06/25/18 05:00 Chloride 100 mmol/L (98-107) 06/25/18 05:00 Carbon Dioxide 31 mmol/L (21-32) 06/25/18 05:00 Anion Gap 7 MMOL/L (8-16) L 06/25/18 05:00 BUN 9 mg/dL (7-18) 06/25/18 05:00 Creatinine 0.7 mg/dL (0.55-1.3) 06/25/18 05:00 Creat Clearance w eGFR > 60 (>60) 06/25/18 05:00 Random Glucose 85 mg/dL (74-106) 06/25/18 05:00 Calcium 8.8 mg/dL (8.5-10.1) 06/25/18 05:00 Total Bilirubin 0.3 mg/dL (0.2-1) 06/25/18 05:00 AST 43 U/L (15-37) H 06/25/18 05:00 ALT 31 U/L (13-61) 06/25/18 05:00 Alkaline Phosphatase 115 U/L (45-117) 06/25/18 05:00 Total Protein 8.2 g/dl (6.4-8.2) 06/25/18 05:00 Albumin 3.6 g/dl (3.4-5.0) 06/25/18 05:00 lab noted Assessment: 06/25/18 14:20 withdrawal sx Plan: continue detox
[2018-06-25] MEDS: TIOTROPIUM BROMIDE 2.5 MCG (SPIRIVA) RESPIMAT INHALER IH SCH (15:32)
[2018-06-25] MEDS: THIAMINE HCL 100 MG TABLET (FP) PO SCH (22:27)
[2018-06-26] MEDS ORDERED: METHADONE HCL 40 MG DISPERSABLE TABLET ONE (05:37)
[2018-06-26] MEDS: METHADONE 40 MG, METHADONE 30 MG PO SCH (05:38)
[2018-06-26] MEDS ORDERED: METHADONE HCL 10 MG TABLET ONE (05:38)
[2018-06-26] MEDS ORDERED: LEVOTHYROXINE NA 100 MCG TABLET (FP) ONE (05:38)
[2018-06-26] MEDS: chlordiazePOXIDE HCL 25 MG CAPSULE PO SCH ×2 (05:38→10:35)
[2018-06-26] MEDS ORDERED: LEVOTHYROXINE NA 25 MCG TABLET (FP) ONE (05:38)
[2018-06-26] MEDS: LEVOTHYROXINE 100 MCG, LEVOTHYROXINE 50 MCG PO SCH (06:41)
[2018-06-26] MEDS: ASPIRIN 81 MG CHEWABLE TABLETS PO SCH (10:35)
[2018-06-26] MEDS: amLODIPine BESYLATE 10 MG TABLET (FP) PO SCH (10:35)
[2018-06-26] MEDS: TIOTROPIUM BROMIDE 2.5 MCG (SPIRIVA) RESPIMAT INHALER IH SCH (10:35)
[2018-06-26] MEDS: PRENATAL VITAMINS W/ FOLIC ACID TABLET (FP) PO SCH (10:35)
--- NOTE | 2018-06-26 10:56 | PN ---
S CIWA - CIWA Score Nausea/Vomitin-Mild Nausea/No Vomiting Muscle Tremors: 3 Anxiety: 2 Agitation: 2 Paroxysmal Sweats: 1-Minimal Palms Moist Orientation: 0-Oriented Tacttile Disturbances: 0-None Auditory Disturbances: 0-None Visual Disturbances: 0-None Headache: 0-None Present CIWA-Ar Total Score: 9 BHS Progress Note (SOAP) Subjective: tremor sweat restlessness anxiety trouble sleep at night Objective: 06/26/18 10:55 Vital Signs Temperature 96.4 F L 06/26/18 09:02 Pulse Rate 70 06/26/18 09:02 Respiratory Rate 16 06/26/18 09:02 Blood Pressure 109/76 06/26/18 09:02 O2 Sat by Pulse Oximetry (%) Laboratory Last Values WBC 8.3 K/mm3 (4.0-10.0) 06/25/18 05:00 RBC 4.20 M/mm3 (4.00-5.60) 06/25/18 05:00 Hgb 14.6 GM/dL (11.7-16.9) 06/25/18 05:00 Hct 41.1 % (35.4-49) 06/25/18 05:00 MCV 97.9 fl (80-96) H 06/25/18 05:00 MCH 34.8 pg (25.7-33.7) H 06/25/18 05:00 MCHC 35.5 g/dl (32.0-35.9) 06/25/18 05:00 RDW 13.8 % (11.9-15.9) 06/25/18 05:00 Plt Count 295 K/MM3 (134-434) D 06/25/18 05:00 MPV 9.3 fl (7.5-11.1) D 06/25/18 05:00 Sodium 137 mmol/L (136-145) 06/25/18 05:00 Potassium 4.5 mmol/L (3.5-5.1) 06/25/18 05:00 Chloride 100 mmol/L (98-107) 06/25/18 05:00 Carbon Dioxide 31 mmol/L (21-32) 06/25/18 05:00 Anion Gap 7 MMOL/L (8-16) L 06/25/18 05:00 BUN 9 mg/dL (7-18) 06/25/18 05:00 Creatinine 0.7 mg/dL (0.55-1.3) 06/25/18 05:00 Creat Clearance w eGFR > 60 (>60) 06/25/18 05:00 Random Glucose 85 mg/dL (74-106) 06/25/18 05:00 Calcium 8.8 mg/dL (8.5-10.1) 06/25/18 05:00 Total Bilirubin 0.3 mg/dL (0.2-1) 06/25/18 05:00 AST 43 U/L (15-37) H 06/25/18 05:00 ALT 31 U/L (13-61) 06/25/18 05:00 Alkaline Phosphatase 115 U/L (45-117) 06/25/18 05:00 Total Protein 8.2 g/dl (6.4-8.2) 06/25/18 05:00 Albumin 3.6 g/dl (3.4-5.0) 06/25/18 05:00 lab noted Assessment: 06/26/18 10:55 withdrawal sx Plan: continue detox
[2018-06-26 11:34] LABS: RPR REACTIVE 1:1 (NONREACTIVE)
[2018-06-26 11:38] LABS: TREPONEMA ANTIBODY PREVIOUSLY REACTIVE (NONREACTIVE)
[2018-06-26] MEDS: chlordiazePOXIDE 5 MG CAPSULE PO SCH ×2 (17:29→22:14)
[2018-06-26] MEDS: THIAMINE HCL 100 MG TABLET (FP) PO SCH (22:14)
[2018-06-27] MEDS ORDERED: METHADONE HCL 40 MG DISPERSABLE TABLET ONE (02:40)
[2018-06-27] MEDS ORDERED: METHADONE HCL 10 MG TABLET ONE (02:41)
[2018-06-27] MEDS ORDERED: LEVOTHYROXINE NA 25 MCG TABLET (FP) ONE (02:41)
[2018-06-27] MEDS ORDERED: LEVOTHYROXINE NA 100 MCG TABLET (FP) ONE (02:41)
[2018-06-27] MEDS: chlordiazePOXIDE 5 MG CAPSULE PO SCH ×2 (06:10→10:28)
[2018-06-27] MEDS: LEVOTHYROXINE 100 MCG, LEVOTHYROXINE 50 MCG PO SCH (06:11)
[2018-06-27] MEDS: METHADONE 40 MG, METHADONE 30 MG PO SCH (06:11)
[2018-06-27] MEDS: PRENATAL VITAMINS W/ FOLIC ACID TABLET (FP) PO SCH (10:26)
[2018-06-27] MEDS: ASPIRIN 81 MG CHEWABLE TABLETS PO SCH (10:27)
[2018-06-27] MEDS: amLODIPine BESYLATE 10 MG TABLET (FP) PO SCH (10:27)
--- NOTE | 2018-06-27 11:30 | PN ---
BHS Progress Note (SOAP) Subjective: I feel better , a little shakes Objective: 06/27/18 11:29 Vital Signs Temperature 97.7 F 06/27/18 06:00 Pulse Rate 75 06/27/18 06:00 Respiratory Rate 18 06/27/18 06:00 Blood Pressure 135/89 06/27/18 06:00 O2 Sat by Pulse Oximetry (%) Laboratory Tests 06/25/18 06/25/18 06/25/18 05:00 05:00 05:00 WBC 8.3 RBC 4.20 Hgb 14.6 Hct 41.1 MCV 97.9 H MCH 34.8 H MCHC 35.5 RDW 13.8 Plt Count 295 D MPV 9.3 D Sodium 137 Potassium 4.5 Chloride 100 Carbon Dioxide 31 Anion Gap 7 L BUN 9 Creatinine 0.7 Creat Clearance w eGFR > 60 Random Glucose 85 Calcium 8.8 Total Bilirubin 0.3 AST 43 H ALT 31 Alkaline Phosphatase 115 Total Protein 8.2 Albumin 3.6 RPR Titer Reactive 1:1 H T.pallidum Ab (A) Previously reactive pt sitting watching tv in nad mid tremor Assessment: 06/27/18 11:30 withdrawal sx's Plan: cont. detox increase fluids d/c in am
[2018-06-27] MEDS: TIOTROPIUM BROMIDE 2.5 MCG (SPIRIVA) RESPIMAT INHALER IH SCH (11:43)
[2018-06-27] MEDS: chlordiazePOXIDE HCL 10 MG CAPSULE PO SCH ×2 (18:02→22:16)
[2018-06-27] MEDS: THIAMINE HCL 100 MG TABLET (FP) PO SCH (22:16)
[2018-06-28] MEDS ORDERED: METHADONE HCL 40 MG DISPERSABLE TABLET ONE (06:00)
[2018-06-28] MEDS ORDERED: LEVOTHYROXINE NA 25 MCG TABLET (FP) ONE (06:01)
[2018-06-28] MEDS ORDERED: METHADONE HCL 10 MG TABLET ONE (06:01)
[2018-06-28] MEDS ORDERED: LEVOTHYROXINE NA 100 MCG TABLET (FP) ONE (06:02)
[2018-06-28] MEDS: LEVOTHYROXINE 100 MCG, LEVOTHYROXINE 50 MCG PO SCH (06:37)
[2018-06-28] MEDS: METHADONE 40 MG, METHADONE 30 MG PO SCH (06:37)
[2018-06-28] MEDS: chlordiazePOXIDE HCL 10 MG CAPSULE PO SCH ×2 (06:37→13:34)
[2018-06-28] MEDS: ASPIRIN 81 MG CHEWABLE TABLETS PO SCH (09:49)
[2018-06-28] MEDS: amLODIPine BESYLATE 10 MG TABLET (FP) PO SCH (09:49)
[2018-06-28] MEDS: PRENATAL VITAMINS W/ FOLIC ACID TABLET (FP) PO SCH (09:49)
[2018-06-28] MEDS: TIOTROPIUM BROMIDE 2.5 MCG (SPIRIVA) RESPIMAT INHALER IH SCH (09:49)
--- NOTE | 2018-06-28 12:34 | PN ---
S Progress Note (SOAP) Subjective: Dizzy, generalized weakness, interrupted sleep with non-specific c/o not feeling well Objective: 06/28/18 12:31 Patient is examined in bed, appears tired and weak, he c/o dizziness. He has no signs of respiratory distress. Vital Signs - 8 hr 06/28/18 06/28/18 06/28/18 06:53 09:19 09:21 Temperature 97.7 F 97.3 F L 97.3 F L Pulse Rate 75 75 76 Respiratory 18 18 18 Rate Blood Pressure 131/96 135/74 126/84 VSS Laboratory Last Values WBC 8.3 K/mm3 (4.0-10.0) 06/25/18 05:00 RBC 4.20 M/mm3 (4.00-5.60) 06/25/18 05:00 Hgb 14.6 GM/dL (11.7-16.9) 06/25/18 05:00 Hct 41.1 % (35.4-49) 06/25/18 05:00 MCV 97.9 fl (80-96) H 06/25/18 05:00 MCH 34.8 pg (25.7-33.7) H 06/25/18 05:00 MCHC 35.5 g/dl (32.0-35.9) 06/25/18 05:00 RDW 13.8 % (11.9-15.9) 06/25/18 05:00 Plt Count 295 K/MM3 (134-434) D 06/25/18 05:00 MPV 9.3 fl (7.5-11.1) D 06/25/18 05:00 Sodium 137 mmol/L (136-145) 06/25/18 05:00 Potassium 4.5 mmol/L (3.5-5.1) 06/25/18 05:00 Chloride 100 mmol/L (98-107) 06/25/18 05:00 Carbon Dioxide 31 mmol/L (21-32) 06/25/18 05:00 Anion Gap 7 MMOL/L (8-16) L 06/25/18 05:00 BUN 9 mg/dL (7-18) 06/25/18 05:00 Creatinine 0.7 mg/dL (0.55-1.3) 06/25/18 05:00 Creat Clearance w eGFR > 60 (>60) 06/25/18 05:00 Random Glucose 85 mg/dL (74-106) 06/25/18 05:00 Calcium 8.8 mg/dL (8.5-10.1) 06/25/18 05:00 Total Bilirubin 0.3 mg/dL (0.2-1) 06/25/18 05:00 AST 43 U/L (15-37) H 06/25/18 05:00 ALT 31 U/L (13-61) 06/25/18 05:00 Alkaline Phosphatase 115 U/L (45-117) 06/25/18 05:00 Total Protein 8.2 g/dl (6.4-8.2) 06/25/18 05:00 Albumin 3.6 g/dl (3.4-5.0) 06/25/18 05:00 RPR Titer Reactive 1:1 (NONREACTIVE) H 06/25/18 05:00 T.pallidum Ab (MHA) Previously reactive (NONREACTIVE) 06/25/18 05:00 Labs noted, dated 06/25, no panic values Assessment: 06/28/18 12:32 Withdrawal sx Fatigue/malaise Plan: Continue to monitor, may be transferred to [facility] rehab today
[2018-06-28] MEDS: THIAMINE HCL 100 MG TABLET (FP) PO SCH (22:27)
[2018-06-29] MEDS ORDERED: LEVOTHYROXINE NA 100 MCG TABLET (FP) ONE (05:11)
[2018-06-29] MEDS ORDERED: METHADONE HCL 40 MG DISPERSABLE TABLET ONE (05:11)
[2018-06-29] MEDS ORDERED: METHADONE HCL 10 MG TABLET ONE (05:11)
[2018-06-29] MEDS ORDERED: LEVOTHYROXINE NA 25 MCG TABLET (FP) ONE (05:11)
[2018-06-29] MEDS: METHADONE 40 MG, METHADONE 30 MG PO SCH (06:32)
[2018-06-29] MEDS: LEVOTHYROXINE 100 MCG, LEVOTHYROXINE 50 MCG PO SCH (06:32)
[2018-06-29 06:54] VITALS: TEMP 98.1
[2018-06-29 09:51] VITALS: BP 115/70; PULSE 82
--- NOTE | 2018-06-29 15:29 | DS ---
[facility] Detox Discharge Summary Admission Date: 06/24/18 Discharge Date: 06/29/18 - History Present History: Alcohol Dependence Additional Comments: 58 years old male admitted on 06/24/18 for alcohol withdrawal sx completed detox regimen tolerated well alert no acute distress aftercare [place] - Physical Exam Results Vital Signs: Vital Signs Temperature 98.1 F 06/29/18 09:51 Pulse Rate 82 06/29/18 09:51 Respiratory Rate 16 06/29/18 09:51 Blood Pressure 115/70 06/29/18 09:51 O2 Sat by Pulse Oximetry (%) Pertinent Admission Physical Exam Findings: alcohol withdrawal sx Vital Signs Temperature 98.1 F 06/29/18 09:51 Pulse Rate 82 06/29/18 09:51 Respiratory Rate 16 06/29/18 09:51 Blood Pressure 115/70 06/29/18 09:51 O2 Sat by Pulse Oximetry (%) Laboratory Last Values WBC 8.3 K/mm3 (4.0-10.0) 06/25/18 05:00 RBC 4.20 M/mm3 (4.00-5.60) 06/25/18 05:00 Hgb 14.6 GM/dL (11.7-16.9) 06/25/18 05:00 Hct 41.1 % (35.4-49) 06/25/18 05:00 MCV 97.9 fl (80-96) H 06/25/18 05:00 MCH 34.8 pg (25.7-33.7) H 06/25/18 05:00 MCHC 35.5 g/dl (32.0-35.9) 06/25/18 05:00 RDW 13.8 % (11.9-15.9) 06/25/18 05:00 Plt Count 295 K/MM3 (134-434) D 06/25/18 05:00 MPV 9.3 fl (7.5-11.1) D 06/25/18 05:00 Sodium 137 mmol/L (136-145) 06/25/18 05:00 Potassium 4.5 mmol/L (3.5-5.1) 06/25/18 05:00 Chloride 100 mmol/L (98-107) 06/25/18 05:00 Carbon Dioxide 31 mmol/L (21-32) 06/25/18 05:00 Anion Gap 7 MMOL/L (8-16) L 06/25/18 05:00 BUN 9 mg/dL (7-18) 06/25/18 05:00 Creatinine 0.7 mg/dL (0.55-1.3) 06/25/18 05:00 Creat Clearance w eGFR > 60 (>60) 06/25/18 05:00 Random Glucose 85 mg/dL (74-106) 06/25/18 05:00 Calcium 8.8 mg/dL (8.5-10.1) 06/25/18 05:00 Total Bilirubin 0.3 mg/dL (0.2-1) 06/25/18 05:00 AST 43 U/L (15-37) H 06/25/18 05:00 ALT 31 U/L (13-61) 06/25/18 05:00 Alkaline Phosphatase 115 U/L (45-117) 06/25/18 05:00 Total Protein 8.2 g/dl (6.4-8.2) 06/25/18 05:00 Albumin 3.6 g/dl (3.4-5.0) 06/25/18 05:00 RPR Titer Reactive 1:1 (NONREACTIVE) H 06/25/18 05:00 T.pallidum Ab (MHA) Previously reactive (NONREACTIVE) 06/25/18 05:00 lab noted - Treatment Hospital Course: Detox Protocol Followed, Detoxed Safely, Responded well, Discharged Condition Good, Rehab Referral Accepted Patient has Accepted a Rehab Referral to: [facility] - Medication Discharge Medications: Ambulatory Orders Folic Acid - 1 mg PO DAILY 04/14/12 Tiotropium [place] [Spiriva] 18 mcg IH DAILY #30 cap.w.dev 03/23/13 Amlodipine Besylate [Norvasc -] 10 mg PO DAILY #30 tablet 06/27/18 Aspirin [ASA -] 81 mg PO DAILY #30 tab.chew 06/27/18 Levothyroxine [Synthroid -] 150 mcg PO DAILY #30 tablet 06/27/18 Tiotropium [place] [Spiriva Respimat] 2 puff IH DAILY #30 inhaler 06/27/18 - Diagnosis (1) Syphilis contact, treated Status: Resolved (2) Hypothyroidism Status: Chronic (3) Essential hypertension Status: Chronic (4) Asthma Status: Chronic (5) Nicotine dependence Status: Acute Qualifiers: Nicotine product type: cigarettes Substance use status: in withdrawal Qualified Code(s): F17.213 - Nicotine dependence, cigarettes, with withdrawal (6) Alcohol dependence with withdrawal Status: Acute Qualifiers: Complication of substance-induced condition: uncomplicated Qualified Code(s ): F10.230 - Alcohol dependence with withdrawal, uncomplicated - AMA Did Patient Leave Against Medical Advice: No
== END 2018-06-29 09:45 | disposition home or self-care (01) | DRG 773 ==
LOC: YASAS 12:24 → Y6N 14:17
PROC: HZ2ZZZZ Detoxification Services for Substance Abuse Treatment (ICD-10-PCS; principal; 2018-06-24)
DX: F10.230 Alcohol dependence with withdrawal, uncomplicated (principal); F14.20 Cocaine dependence, uncomplicated; F11.20 Opioid dependence, uncomplicated; F17.210 Nicotine dependence, cigarettes, uncomplicated; I10 Essential (primary) hypertension; J44.9 Chronic obstructive pulmonary disease, unspecified; J45.909 Unspecified asthma, uncomplicated; E03.9 Hypothyroidism, unspecified; R55 Syncope and collapse; R63.4 Abnormal weight loss; Z68.1 Body mass index [BMI] 19.9 or less, adult; Z20.2 Contact with and (suspected) exposure to infections with a predominantly sexual mode of transmission; Z86.19 Personal history of other infectious and parasitic diseases
CPT/HCPCS: 36415; 80053; 85027; 86593; 86780

== ENCOUNTER 2019-01-02 12:06 | Inpatient (IN) | payer OTHER ==
[2019-01-02 20:45] VITALS: BMI 23.6
--- NOTE | 2019-01-02 21:39 | HP ---
CIWA Score Nausea/Vomitin-No Nausea/No Vomiting Muscle Tremors: 4-Moderate,w/Arms Extend Anxiety: 4-Mod. Anxious/Guarded Agitation: 4-Moderately Restless Paroxysmal Sweats: 3 Orientation: 0-Oriented Tacttile Disturbances: 0-None Auditory Disturbances: 0-None Visual Disturbances: 0-None Headache: 2-Mild CIWA-Ar Total Score: 17 - Admission Criteria OASAS Guidelines: Admission for Medically Managed Detox: Requires at least one of the followin. CIWA greater than 12 2. Seizures within the past 24 hours 3. Delirium tremens within the past 24 hours 4. Hallucinations within the past 24 hours 5. Acute intervention needed for co occurring medical disorder 6. Acute intervention needed for co occurring psychiatric disorder 7. Severe withdrawal that cannot be handled at a lower level of care (continued vomiting, continued diarrhea, abnormal vital signs) requiring intravenous medication and/or fluids 8. Patient presents the following: CIWA greater than 12 Admission Criteria Met: Admission criteria met Admission ROS [facility] Chief Complaint: C/O WITHDRAWAL SX'S Allergies/Adverse Reactions: Allergies Allergy/AdvReac Type Severity Reaction Status Date / Time No Known Allergies Allergy Verified 01/02/19 20:36 History of Present Illness: 58 Y.O. MALE WITH HX/O ALCOHOLISM, OPIOID AND COCAINE DEPENDENCE HERE FOR DETOX. CLIENT IS ON MMTP 70 MG FROM [facility]. REPORTS LAST MEDICATED TODAY. HE IS SELF REFERRED. KNOWN TO THIS PROGRAM LAST ADMISSION 06/2018. REPORTS MOST CLEAN TIME 3 MONTHS.RELAPSING 4 MONTHS AGO. DENIES HX/O BLACKOUTS, SI/HI/AVH. DOMICILED, UNEMPLOYED, DENIES LEGALS Exam Limitations: No Limitations - Ebola screening Have you traveled outside of the country in the last 21 days: No (N) Have you had contact with anyone from an Ebola affected area: No Do you have a fever: No - Review of Systems Constitutional: Chills, Loss of Appetite, Night Sweats, Changes in sleep, Unintentional Wgt. Loss EENT: reports: Dental Problems (MISSING TEETH) Respiratory: reports: No Symptoms reported Cardiac: reports: No Symptoms Reported GI: reports: Poor Appetite, Poor Fluid Intake : reports: No Symptoms Reported (NO C/O) Musculoskeletal: reports: Back Pain (CHRONIC) Integumentary: reports: Flushing, Sweating Neuro: reports: Headache, Tremors Endocrine: reports: Flushing, Other (HYPOTHYROIDISM) Hematology: reports: No Symptoms Reported Psychiatric: reports: Orientated x3, Anxious Other Systems: Reviewed and Negative Patient History - Patient Medical History Hx Anemia: No Hx Asthma: Yes Hx Chronic Obstructive Pulmonary Disease (COPD): Yes (on spiriva) Hx Cancer: No Hx Cardiac Disorders: No Hx Congestive Heart Failure: No Hx Hypertension: Yes (on medication) Hx Hypercholesterolemia: No Hx Pacemaker: No HX Cerebrovascular Accident: No Hx Seizures: No Hx Dementia: No Hx Diabetes: No Hx Gastrointestinal Disorders: No Hx Liver Disease: No Hx Genitourinary Disorders: No Hx Sexually Transmitted Disorders: Yes (syphilis) Hx Renal Disease (ESRD): No Hx Thyroid Disease: Yes (ON SYNTHROID 150 MCG DAILY) Hx Human Immunodeficiency Virus (HIV): No (NEGATIVE IN 08/08) Hx Hepatitis C: No Hx Depression: Yes Hx Suicide Attempt: No Hx Bipolar Disorder: No Hx Schizophrenia: No - Patient Surgical History Past Surgical History: No Hx Neurologic Surgery: No Hx Cataract Extraction: No Hx Cardiac Surgery: No Hx Lung Surgery: No Hx Breast Surgery: No Hx Breast Biopsy: No Hx Abdominal Surgery: No Hx Appendectomy: No Hx Cholecystectomy: No Hx Genitourinary Surgery: No Hx Section: No Hx Orthopedic Surgery: No Anesthesia Reaction: No - PPD History Previous Implant?: Yes Documented Results: Negative w/proof Implanted On Prior [facility] Admission?: Yes Date: 11/02/17 Results: 0 mm PPD to be Administered?: Yes - Smoking Cessation Smoking history: Former smoker Have you smoked in the past 12 months: Yes Aproximately how many cigarettes per day: 5 (QUIT 4 MONTHS AGO) Cigars Per Day: 0 Hx Chewing Tobacco Use: No Initiated information on smoking cessation: No - Substance & Tx. History Hx Alcohol Use: Yes Hx Substance Use: Yes Substance Use Type: Alcohol, Cocaine Hx Substance Use Treatment: Yes ([facility]) - Substances abused Alcohol Substance route: Oral Frequency: Daily Amount used: 10 BEER Age of first use: 17 Date of last use: 01/02/19 Cocaine Substance route: Smoking Frequency: Daily Amount used: 1 BAG Age of first use: 29 Date of last use: 01/02/19 Family Disease History - Family Disease History Family Disease History: Other: Mother (thyroid disease ) Admission Physical Exam BHS - Vital Signs Vital Signs: Vital Signs - 24 hr 01/02/19 20:38 Temperature 98.7 F Pulse Rate 82 Respiratory 18 Rate Blood Pressure 179/94 H - Physical General Appearance: Yes: Moderate Distress, Tremorous, Anxious, Other (FLUSHED) HEENTM: Yes: Normocephalic, Normal Voice, RUPALI, Pharynx Normal, Other (POOR DENTITION) Respiratory: Yes: Chest Non-Tender, Lungs Clear, Normal Breath Sounds, No Respiratory Distress, No Accessory Muscle Use Neck: Yes: No masses,lesions,Nodules, Supple, Trachea in good position Breast: Yes: Breast Exam Deferred Cardiology: Yes: Regular Rhythm, Regular Rate, S1, S2 Abdominal: Yes: Non Tender, Soft, Increased Bowel Sounds Genitourinary: Yes: Within Normal Limits (NO C/O) Back: Yes: Normal Inspection Musculoskeletal: Yes: full range of Motion, Gait Steady Extremities: Yes: Normal Capillary Refill, Normal Range of Motion, Non-Tender, Tremors Neurological: Yes: Fully Oriented, Alert, Motor Strength 5/5, Depressed Affect Integumentary: Yes: Dry, Warm, Other (FLUSHED) Lymphatic: Yes: Within Normal Limits - Diagnostic (1) Substance induced mood disorder Current Visit: Yes Status: Suspected (2) Cocaine dependence Current Visit: Yes Status: Active (3) Alcohol dependence with withdrawal Current Visit: Yes Status: Acute Qualifiers: Complication of substance-induced condition: uncomplicated Qualified Code(s ): F10.230 - Alcohol dependence with withdrawal, uncomplicated (4) Asthma Current Visit: Yes Status: Chronic (5) Essential hypertension Current Visit: Yes Status: Chronic (6) Hypothyroidism Current Visit: Yes Status: Chronic (7) Methadone maintenance therapy patient Current Visit: Yes Status: Chronic Comment: on methadone 70 mg, dose pending verification Cleared for Admission S - Detox or Rehab [facility] Level of Care: Medically Managed Detox Regimen/Protocol: Librium [facility] for Rehab Admission: No Breathalyzer - Breathalyzer Breathalyzer: 0 Vital Signs - Vital Signs Vital signs refused: No Temperature: 98.7 F Temperature source: Oral Pulse Rate: 82 Respiratory Rate: 18 Blood Pressure: 179/94 BP Location: Right Arm Blood Pressure position: Sitting Urine Drug Screen - Results Urine drug screen results: ELVA-Cocaine, MTD-Methadone Inpatient Rehab Admission - Rehab Decision to Admit Inpatient rehab admission?: No
[2019-01-02] MEDS ORDERED: DICYCLOMINE HCL 10 MG CAPSULE PO PRN (22:35)
[2019-01-02] MEDS ORDERED: NICOTINE POLACRILEX 2 MG GUM BUC PRN (22:35)
[2019-01-02] MEDS ORDERED: MENTHOL/PHENOL 1 EACH UD MM PRN (22:35)
[2019-01-02] MEDS ORDERED: ACETAMINOPHEN 325 MG TABLET (FP) PO PRN ×2 (22:35)
[2019-01-02] MEDS ORDERED: MAGNESIUM CITRATE 300 ML BOTTLE PO PRN (22:35)
[2019-01-02] MEDS ORDERED: P-EPHED 60MG/TRIPROLIDI 2.5MG TABLET PO PRN (22:35)
[2019-01-02] MEDS ORDERED: MELATONIN 5 MG TABLETS PO PRN (22:35)
[2019-01-02] MEDS ORDERED: IBUPROFEN 400 MG TABLET (FP) PO PRN (22:35)
[2019-01-02] MEDS ORDERED: METHOCARBAMOL 500 MG TABLET PO PRN (22:35)
[2019-01-02] MEDS ORDERED: guaiFENesin 200 MG/10 ML 10 ML UNIT-DOSE CUPS PO PRN (22:35)
[2019-01-02] MEDS ORDERED: MAGNESIUM HYDROX 2400MG/30ML ORAL SUSPENSION 30 ML CUP PO PRN (22:35)
[2019-01-02] MEDS ORDERED: MAG HYDROX/AL HYDROX/SIMETH 30 ML UNIT-DOSE CUP PO PRN (22:35)
[2019-01-02] MEDS ORDERED: BISMUTH SUBSALICYLATE 524 MG/30 ML UD PO PRN (22:35)
[2019-01-02] MEDS ORDERED: chlordiazePOXIDE HCL 25 MG CAPSULE PO PRN (22:35)
[2019-01-02] MEDS ORDERED: ONDANSETRON *ODT* 4 MG TABLET SL PRN (22:35)
[2019-01-02] MEDS ORDERED: hydrOXYzine PAMOATE 25 MG CAPSULE (FP) PO PRN (22:35)
[2019-01-02] MEDS ORDERED: cloNIDine HCL 0.1 MG TABLET PO ONE (22:37)
[2019-01-02] MEDS: chlordiazePOXIDE HCL 25 MG CAPSULE PO SCH (23:06)
[2019-01-03] MEDS: chlordiazePOXIDE HCL 25 MG CAPSULE PO SCH ×4 (05:26→22:18)
[2019-01-03] MEDS ORDERED: LEVOTHYROXINE NA 150 MCG TABLET PO SCH (07:00)
[2019-01-03] MEDS ORDERED: LEVOTHYROXINE NA 25 MCG TABLET (FP) ONE (08:24)
[2019-01-03] MEDS ORDERED: LEVOTHYROXINE NA 100 MCG TABLET (FP) ONE (08:25)
[2019-01-03] MEDS: LEVOTHYROXINE 100 MCG, LEVOTHYROXINE 50 MCG PO SCH (08:28)
[2019-01-03] MEDS ORDERED: METHADONE HCL 40 MG DISPERSABLE TABLET PO SCH (10:00)
[2019-01-03] MEDS: amLODIPine BESYLATE 10 MG TABLET (FP) PO SCH (10:25)
[2019-01-03] MEDS: PRENATAL VITAMINS W/ FOLIC ACID TABLET (FP) PO SCH (10:25)
[2019-01-03] MEDS: NICOTINE 14 MG/24 HOURS TOPICAL PATCH TD SCH (10:26)
[2019-01-03] MEDS: ASPIRIN 81 MG CHEWABLE TABLETS PO SCH (10:28)
[2019-01-03] MEDS ORDERED: METHADONE HCL 40 MG DISPERSABLE TABLET ONE (10:29)
[2019-01-03] MEDS ORDERED: METHADONE HCL 10 MG TABLET ONE (10:29)
--- NOTE | 2019-01-03 10:32 | PN ---
S CIWA - CIWA Score Nausea/Vomitin-No Nausea/No Vomiting Muscle Tremors: 2 Anxiety: 2 Agitation: 2 Paroxysmal Sweats: 3 Orientation: 0-Oriented Tacttile Disturbances: 1-Very Mild Itch/Numbness Auditory Disturbances: 0-None Visual Disturbances: 0-None Headache: 1-Very Mild CIWA-Ar Total Score: 11 BHS Progress Note (SOAP) Subjective: c/o sweats, headache, shakes, and anxiety Objective: 01/03/19 10:31 Vital Signs 01/03/19 01/03/19 06:12 09:30 Temperature 97.6 F 97.3 F L Pulse Rate 71 81 Respiratory 18 16 Rate Blood Pressure 112/72 137/85 Labs pending. Assessment: 01/03/19 10:32 AOX3, in no acute distress Full ROM, ambulating in the unit. Withdrawal symptoms. Plan: continue detox. increase hydration.
[2019-01-03 10:45] LABS: ALBUMIN 3.4 g/dl (3.4-5.0); BILIRUBIN,TOTAL 0.4 mg/dL (0.2-1); BLOOD UREA NITROGEN 10.2 mg/dL (7-18); CALCIUM 8.9 mg/dL (8.5-10.1); CREATININE 0.6 mg/dL (0.55-1.3); POTASSIUM 3.6 mmol/L (3.5-5.1); TOT PROT 7.5 g/dl (6.4-8.2)
[2019-01-03] MEDS: METHADONE 40 MG, METHADONE 30 MG PO SCH (10:57)
[2019-01-03 11:15] LABS: HEMATOCRIT 39.1 % (35.4-49); HEMOGLOBIN 13.6 GM/dL (11.7-16.9); MCH 34.3 pg (25.7-33.7); MCHC 34.8 g/dl (32.0-35.9); MEAN CELL VOLUME 98.5 fl (80-96); MEAN PLT VOLUME 8.8 fl (7.5-11.1); RBC 3.97 M/mm3 (4.00-5.60); RDW 13.8 % (11.9-15.9); WHITE BLOOD COUNT 7.6 K/mm3 (4.0-10.0)
[2019-01-03] MEDS: TIOTROPIUM BROMIDE 2.5 MCG (SPIRIVA) RESPIMAT INHALER IH SCH (11:23)
[2019-01-03 11:33] LABS: PLATELET COUNT 207 K/MM3 (134-434)
--- NOTE | 2019-01-03 13:22 | CONSULT ---
[facility] Psychiatric Consult - Data Date of interview: 01/03/19 Admission source: [facility] Identifying data: This is one of multiple admissions to [facility] for this 58 y/ o male self-referred for detoxification (alcohol, cocaine). Examined at [address] [place] [address]. Patient is single, a father of three, domiciled, unemployed and supported on welfare. Substance Abuse History: Discussed in this session. Profile of substance abuse is confirned by the patient as detailed n [facility] report : Smoking history: Former smoker. Have you smoked in the past 12 months: Yes. Aproximately how many cigarettes per day: 5 (QUIT 4 MONTHS AGO). Cigars Per Day: 0. Hx Chewing Tobacco Use: No. Initiated information on smoking cessation: No. - Substance & Tx. History. Hx Alcohol Use: Yes. Hx Substance Use: Yes. Substance Use Type : Alcohol, Cocaine. Hx Substance Use Treatment: Yes ([facility] - Substances abused. Alcohol. Substance route: Oral. Frequency: Daily. Amount used: 10 BEER. Age of first use: 17. Date of last use: 01/02/19. Cocaine. Substance route: Smoking. Frequency: Daily. Amount used: 1 BAG. Age of first use: 29. Date of last use: 01/02/19 Medical History: Medical history is remarkable for hypertension, bronchial asthma, hypothyroidism, COPD and a distant history of treatment for syphilis. Psychiatric History: Patient denies history of psychiatric hospitalizations or suicide attempts. Mr Mcgill is still on methadone maintenance (70 mg/day). Physical/Sexual Abuse/Trauma History: No history. Additional Comment: Urine drug screen results: ELVA-Cocaine, MTD-Methadone. Noted. Mental Status Exam - Mental Status Exam Alert and Oriented to: Time, Place, Person Cognitive Function: Good Patient Appearance: Unkempt, Disheveled Mood: Nervous, Withdrawn Affect: Mood Congruent, Constricted Patient Behavior: Fatigued, Appropriate, Cooperative Speech Pattern: Clear, Appropriate Voice Loudness: Normal Thought Process: Goal Oriented Thought Disorder: Not Present Hallucinations: Denies Suicidal Ideation: Denies Homicidal Ideation: Denies Insight/Judgement: Poor Sleep: Fair Appetite: Good Muscle strength/Tone: Normal Gait/Station: Other (slow and unsteady gait) Psychiatric Findings - Problem List ([place] 1, 2,3) (1) Alcohol dependence with withdrawal Current Visit: Yes Status: Acute Qualifiers: Complication of substance-induced condition: uncomplicated Qualified Code(s ): F10.230 - Alcohol dependence with withdrawal, uncomplicated (2) Opioid dependence on agonist therapy Current Visit: Yes Status: Chronic (3) Cocaine dependence Current Visit: Yes Status: Chronic (4) Nicotine dependence Current Visit: Yes Status: Chronic Qualifiers: Nicotine product type: cigarettes Substance use status: in withdrawal Qualified Code(s): F17.213 - Nicotine dependence, cigarettes, with withdrawal (5) Substance induced mood disorder Current Visit: Yes Status: Chronic - Initial Treatment Plan Initial Treatment Plan: Psychoeducation. Detoxification in progress. Sleep hygiene. Motivational counseling for maintenance of sobriety. Support and encouragement. AA/NA meetings. Groups. Observation.
[2019-01-03 15:07] LABS: RPR REACTIVE 1:1 (NONREACTIVE)
[2019-01-03 15:08] LABS: TREPONEMA ANTIBODY PREVIOUSLY REACTIVE (NONREACTIVE)
--- NOTE | 2019-01-03 15:48 | PN ---
[facility] Progress Note Note: Pt's RPR is 1.1, spoke to pt and he stated he had syphilis 30years ago and was treated. Pt denies any symptoms at the moment.
[2019-01-03] MEDS: THIAMINE HCL 100 MG TABLET (FP) PO SCH (22:18)
[2019-01-04] MEDS ORDERED: METHADONE HCL 10 MG TABLET ONE (04:13)
[2019-01-04] MEDS ORDERED: METHADONE HCL 40 MG DISPERSABLE TABLET ONE (04:14)
[2019-01-04] MEDS: chlordiazePOXIDE HCL 25 MG CAPSULE PO SCH ×3 (05:45→17:52)
[2019-01-04] MEDS: METHADONE 40 MG, METHADONE 30 MG PO SCH (05:45)
[2019-01-04] MEDS ORDERED: LEVOTHYROXINE NA 100 MCG TABLET (FP) ONE (06:31)
[2019-01-04] MEDS ORDERED: LEVOTHYROXINE NA 25 MCG TABLET (FP) ONE (06:31)
[2019-01-04] MEDS: LEVOTHYROXINE 100 MCG, LEVOTHYROXINE 50 MCG PO SCH (06:33)
[2019-01-04] MEDS: amLODIPine BESYLATE 10 MG TABLET (FP) PO SCH (10:17)
[2019-01-04] MEDS: PRENATAL VITAMINS W/ FOLIC ACID TABLET (FP) PO SCH (10:17)
[2019-01-04] MEDS: ASPIRIN 81 MG CHEWABLE TABLETS PO SCH (10:17)
[2019-01-04] MEDS: TIOTROPIUM BROMIDE 2.5 MCG (SPIRIVA) RESPIMAT INHALER IH SCH (10:18)
[2019-01-04] MEDS: NICOTINE 14 MG/24 HOURS TOPICAL PATCH TD SCH (10:18)
--- NOTE | 2019-01-04 11:36 | PN ---
BHS CIWA - CIWA Score Nausea/Vomitin Muscle Tremors: 2 Anxiety: 2 Agitation: 2 Paroxysmal Sweats: No Perspiration Orientation: 0-Oriented Tacttile Disturbances: 1-Very Mild Itch/Numbness Auditory Disturbances: 0-None Visual Disturbances: 1-Very Mild Sensitivity Headache: 0-None Present CIWA-Ar Total Score: 10 BHS Progress Note (SOAP) Subjective: CO POOR SLEEP, SHAKINESS AND GI UPSET Objective: 01/04/19 11:35 Laboratory Tests 01/03/19 01/03/19 01/03/19 07:40 07:40 07:40 WBC 7.6 RBC 3.97 L Hgb 13.6 Hct 39.1 MCV 98.5 H MCH 34.3 H MCHC 34.8 RDW 13.8 Plt Count 207 D MPV 8.8 Sodium 135 L Potassium 3.6 Chloride 97 L Carbon Dioxide 32 Anion Gap 6 L BUN 10.2 Creatinine 0.6 Est GFR (CKD-EPI)AfAm 127.55 Est GFR (CKD-EPI)NonAf 110.05 Random Glucose 85 Calcium 8.9 Total Bilirubin 0.4 AST 78 H ALT 90 H Alkaline Phosphatase 175 H Total Protein 7.5 Albumin 3.4 RPR Titer Reactive 1:1 H T.pallidum Ab (MHA) Previously reactive Vital Signs - 24 hr 01/03/19 01/03/19 01/03/19 13:32 17:58 21:35 Temperature 96.8 F L 97.3 F L 97.6 F Pulse Rate 59 L 62 61 Respiratory 18 16 19 Rate Blood Pressure 114/68 126/73 129/77 01/04/19 01/04/19 01/04/19 00:30 03:30 06:38 Temperature 98.7 F Pulse Rate 65 Respiratory 18 18 18 Rate Blood Pressure 125/69 01/04/19 09:19 Temperature 97.6 F Pulse Rate 71 Respiratory 18 Rate Blood Pressure 97/66 01/04/19 11:35 ALERT AMBULATORY AND INTERACTIVE Assessment: 01/04/19 11:35 ETOH DEP WITH WITHDRAWAL Plan: CONT DETOX PROTOCOL AND ADJUNCT MNGMNT
[2019-01-04 22:20] LABS: PH,URINE 7.5 (5.0-8.0); URINE APPEARANCE CLEAR; URINE BILIRUBIN NEGATIVE (NEGATIVE); URINE COLOR YELLOW; URINE GLUCOSE (UA) NEGATIVE (NEGATIVE); URINE KETONE NEGATIVE (NEGATIVE); URINE LEUK ESTERASE NEGATIVE (NEGATIVE); URINE NITRITE NEGATIVE (NEGATIVE); URINE PROTEIN NEGATIVE (NEGATIVE)
[2019-01-04] MEDS: chlordiazePOXIDE HCL 10 MG CAPSULE PO SCH (22:45)
[2019-01-04] MEDS: THIAMINE HCL 100 MG TABLET (FP) PO SCH (22:45)
[2019-01-04] MEDS ORDERED: chlordiazePOXIDE HCL 10 MG CAPSULE PO PRN (23:00)
[2019-01-05] MEDS ORDERED: METHADONE HCL 10 MG TABLET ONE (05:04)
[2019-01-05] MEDS ORDERED: METHADONE HCL 40 MG DISPERSABLE TABLET ONE (05:05)
[2019-01-05] MEDS: METHADONE 40 MG, METHADONE 30 MG PO SCH (05:33)
[2019-01-05] MEDS ORDERED: LEVOTHYROXINE NA 100 MCG TABLET (FP) ONE (05:33)
[2019-01-05] MEDS ORDERED: LEVOTHYROXINE NA 25 MCG TABLET (FP) ONE (05:33)
[2019-01-05] MEDS: chlordiazePOXIDE HCL 10 MG CAPSULE PO SCH ×4 (05:33→22:28)
[2019-01-05] MEDS: LEVOTHYROXINE 100 MCG, LEVOTHYROXINE 50 MCG PO SCH (06:20)
[2019-01-05] MEDS: NICOTINE 14 MG/24 HOURS TOPICAL PATCH TD SCH (10:50)
[2019-01-05] MEDS: ASPIRIN 81 MG CHEWABLE TABLETS PO SCH (10:51)
[2019-01-05] MEDS: amLODIPine BESYLATE 10 MG TABLET (FP) PO SCH (10:51)
[2019-01-05] MEDS: PRENATAL VITAMINS W/ FOLIC ACID TABLET (FP) PO SCH (10:51)
[2019-01-05] MEDS: TIOTROPIUM BROMIDE 2.5 MCG (SPIRIVA) RESPIMAT INHALER IH SCH (12:53)
--- NOTE | 2019-01-05 14:20 | PN ---
S CIWA - CIWA Score Nausea/Vomitin-No Nausea/No Vomiting Muscle Tremors: None Anxiety: 1-Mildly Anxious Agitation: 0-Normal Activity Paroxysmal Sweats: No Perspiration Orientation: 0-Oriented Tacttile Disturbances: 1-Very Mild Itch/Numbness Auditory Disturbances: 0-None Visual Disturbances: 2-Mild Sensitivity Headache: 0-None Present CIWA-Ar Total Score: 4 BHS Progress Note (SOAP) Subjective: Fatigue. Objective: PATIENT A & O X 2 (UNCERTAIN ABOUT CURRENT DAY / DATE). IN NO ACUTE DISTRESS. 01/05/19 14:18 Vital Signs Temperature 97.6 F 01/05/19 13:06 Pulse Rate 69 01/05/19 13:06 Respiratory Rate 18 01/05/19 13:06 Blood Pressure 112/64 01/05/19 13:06 O2 Sat by Pulse Oximetry (%) Laboratory Tests 01/03/19 01/03/19 01/03/19 07:40 07:40 07:40 WBC 7.6 RBC 3.97 L Hgb 13.6 Hct 39.1 MCV 98.5 H MCH 34.3 H MCHC 34.8 RDW 13.8 Plt Count 207 D MPV 8.8 Sodium 135 L Potassium 3.6 Chloride 97 L Carbon Dioxide 32 Anion Gap 6 L BUN 10.2 Creatinine 0.6 Est GFR (CKD-EPI)AfAm 127.55 Est GFR (CKD-EPI)NonAf 110.05 Random Glucose 85 Calcium 8.9 Total Bilirubin 0.4 AST 78 H ALT 90 H Alkaline Phosphatase 175 H Total Protein 7.5 Albumin 3.4 Urine Color Urine Appearance Urine pH Ur Specific [place] Urine Protein Urine Glucose (UA) Urine Ketones Urine Blood Urine Nitrite Urine Bilirubin Urine Urobilinogen Ur Leukocyte Esterase RPR Titer Reactive 1:1 H T.pallidum Ab (MHA) Previously reactive 01/04/19 16:00 WBC RBC Hgb Hct MCV MCH MCHC RDW Plt Count MPV Sodium Potassium Chloride Carbon Dioxide Anion Gap BUN Creatinine Est GFR (CKD-EPI)AfAm Est GFR (CKD-EPI)NonAf Random Glucose Calcium Total Bilirubin AST ALT Alkaline Phosphatase Total Protein Albumin Urine Color Yellow Urine Appearance Clear Urine pH 7.5 Ur Specific [place] 1.012 Urine Protein Negative Urine Glucose (UA) Negative Urine Ketones Negative Urine Blood Negative Urine Nitrite Negative Urine Bilirubin Negative Urine Urobilinogen 1.0 Ur Leukocyte Esterase Negative RPR Titer T.pallidum Ab (MHA) LABS NOTED. ADMISSION RPR RESULT NOTED TO BE REACTIVE 1:1; MHATP PREVIOUSLY REACTIVE. PATIENT REPORTS THAT HE COMPLETED A FULL COURSE OF TREATMENT FOR SYPHILIS IN THE PAST. 01/05/19 15:36 Assessment: 01/05/19 14:20 WITHDRAWAL SYMPTOMS. ELEVATED LIVER ENZYMES. REACTIVE RPR. Plan: CONTINUE DETOX. PATIENT ADVISED TO FOLLOW-UP WITH CUSTOMER OPERATIONS ASSOCIATE AFTER DISCHARGE FROM DETOX FOR GENERAL MEDICAL ASSESSMENT AND FOR ELEVATED LIVER ENZYMES NOTED ON DETOX ADMISSION LABORATORY ASSESSMENT. PATIENT VERBALIZED UNDERSTANDING OF RECOMMENDATION. COPIES OF RESULTS OF ALL LABS DRAWN WHILE ADMITTED FOR DETOX WILL BE GIVEN TO PATIENT AT TIME OF DISCHARGE FROM DETOX UNIT. PATIENT SCHEDULED FOR D/C TOMORROW.
[2019-01-05] MEDS: THIAMINE HCL 100 MG TABLET (FP) PO SCH (22:29)
[2019-01-06] MEDS ORDERED: METHADONE HCL 40 MG DISPERSABLE TABLET ONE (04:51)
[2019-01-06] MEDS ORDERED: METHADONE HCL 10 MG TABLET ONE (04:51)
[2019-01-06] MEDS ORDERED: LEVOTHYROXINE NA 25 MCG TABLET (FP) ONE (04:52)
[2019-01-06] MEDS ORDERED: LEVOTHYROXINE NA 100 MCG TABLET (FP) ONE (04:52)
[2019-01-06] MEDS: METHADONE 40 MG, METHADONE 30 MG PO SCH (05:23)
[2019-01-06] MEDS: LEVOTHYROXINE 100 MCG, LEVOTHYROXINE 50 MCG PO SCH (06:14)
[2019-01-06] MEDS: chlordiazePOXIDE HCL 10 MG CAPSULE PO SCH ×2 (10:27→22:12)
[2019-01-06] MEDS: amLODIPine BESYLATE 10 MG TABLET (FP) PO SCH (10:27)
[2019-01-06] MEDS: ASPIRIN 81 MG CHEWABLE TABLETS PO SCH (10:27)
[2019-01-06] MEDS: NICOTINE 14 MG/24 HOURS TOPICAL PATCH TD SCH (10:28)
[2019-01-06] MEDS: TIOTROPIUM BROMIDE 2.5 MCG (SPIRIVA) RESPIMAT INHALER IH SCH (10:28)
[2019-01-06] MEDS: PRENATAL VITAMINS W/ FOLIC ACID TABLET (FP) PO SCH (10:28)
--- NOTE | 2019-01-06 13:57 | PN ---
S CIWA - CIWA Score Nausea/Vomitin-No Nausea/No Vomiting Muscle Tremors: None Anxiety: 2 Agitation: 1-Slight > Activity Paroxysmal Sweats: No Perspiration Orientation: 0-Oriented Tacttile Disturbances: 0-None Auditory Disturbances: 0-None Visual Disturbances: 1-Very Mild Sensitivity Headache: 0-None Present CIWA-Ar Total Score: 4 BHS Progress Note (SOAP) Subjective: Body Aches, Fatigue. Objective: PATIENT A & O X 3, OBSERVED AMBULATING ON UNIT UNASSISTED. IN NO ACUTE DISTRESS. 01/06/19 13:58 Vital Signs Temperature 97.2 F L 01/06/19 13:15 Pulse Rate 66 01/06/19 13:15 Respiratory Rate 18 01/06/19 13:15 Blood Pressure 126/68 01/06/19 13:15 O2 Sat by Pulse Oximetry (%) Laboratory Tests 01/03/19 01/03/19 01/03/19 07:40 07:40 07:40 WBC 7.6 RBC 3.97 L Hgb 13.6 Hct 39.1 MCV 98.5 H MCH 34.3 H MCHC 34.8 RDW 13.8 Plt Count 207 D MPV 8.8 Sodium 135 L Potassium 3.6 Chloride 97 L Carbon Dioxide 32 Anion Gap 6 L BUN 10.2 Creatinine 0.6 Est GFR (CKD-EPI)AfAm 127.55 Est GFR (CKD-EPI)NonAf 110.05 Random Glucose 85 Calcium 8.9 Total Bilirubin 0.4 AST 78 H ALT 90 H Alkaline Phosphatase 175 H Total Protein 7.5 Albumin 3.4 Urine Color Urine Appearance Urine pH Ur Specific [place] Urine Protein Urine Glucose (UA) Urine Ketones Urine Blood Urine Nitrite Urine Bilirubin Urine Urobilinogen Ur Leukocyte Esterase RPR Titer Reactive 1:1 H T.pallidum Ab (MHA) Previously reactive 01/04/19 16:00 WBC RBC Hgb Hct MCV MCH MCHC RDW Plt Count MPV Sodium Potassium Chloride Carbon Dioxide Anion Gap BUN Creatinine Est GFR (CKD-EPI)AfAm Est GFR (CKD-EPI)NonAf Random Glucose Calcium Total Bilirubin AST ALT Alkaline Phosphatase Total Protein Albumin Urine Color Yellow Urine Appearance Clear Urine pH 7.5 Ur Specific [place] 1.012 Urine Protein Negative Urine Glucose (UA) Negative Urine Ketones Negative Urine Blood Negative Urine Nitrite Negative Urine Bilirubin Negative Urine Urobilinogen 1.0 Ur Leukocyte Esterase Negative RPR Titer T.pallidum Ab (MHA) LABS NOTED. Assessment: 01/06/19 13:58 WITHDRAWAL SYMPTOMS. ELEVATED LIVER ENZYMES. Plan: CONTINUE DETOX. PATIENT SCHEDULED FOR D/C TOMORROW .
[2019-01-06] MEDS: THIAMINE HCL 100 MG TABLET (FP) PO SCH (22:12)
[2019-01-07] MEDS ORDERED: METHADONE HCL 40 MG DISPERSABLE TABLET ONE (04:14)
[2019-01-07] MEDS ORDERED: METHADONE HCL 10 MG TABLET ONE (04:14)
[2019-01-07] MEDS ORDERED: LEVOTHYROXINE NA 25 MCG TABLET (FP) ONE (04:14)
[2019-01-07] MEDS ORDERED: LEVOTHYROXINE NA 100 MCG TABLET (FP) ONE (04:15)
[2019-01-07] MEDS: METHADONE 40 MG, METHADONE 30 MG PO SCH (05:24)
[2019-01-07] MEDS: LEVOTHYROXINE 100 MCG, LEVOTHYROXINE 50 MCG PO SCH (06:12)
[2019-01-07 06:25] VITALS: TEMP 97.2
[2019-01-07 09:13] VITALS: BP 108/60; PULSE 64
--- NOTE | 2019-01-07 14:48 | DS ---
[facility] Detox Discharge Summary Admission Date: 01/02/19 Discharge Date: 01/07/19 - History Pertinent Past History: Pt was discharged after completing alcohol detox protocol. Pt has a PCP at [facility]. 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 Pt does not need any meds- has meds at home - Physical Exam Results Vital Signs: Vital Signs Temperature 97.2 F L 01/07/19 09:13 Pulse Rate 64 01/07/19 09:13 Respiratory Rate 18 01/07/19 09:13 Blood Pressure 108/60 01/07/19 09:13 O2 Sat by Pulse Oximetry (%) - Treatment Hospital Course: Detox Protocol Followed, Detoxed Safely, Responded well, Discharged Condition Good, Rehab Referral Accepted - Medication Discharge Medications: Ambulatory Orders Folic Acid - 1 mg PO DAILY 04/14/12 Tiotropium [place] [Spiriva] 18 mcg IH DAILY #30 cap.w.dev 03/23/13 Amlodipine Besylate [Norvasc -] 10 mg PO DAILY #30 tablet 06/27/18 Aspirin [ASA -] 81 mg PO DAILY #30 tab.chew 06/27/18 Levothyroxine [Synthroid -] 150 mcg PO DAILY #30 tablet 06/27/18 Tiotropium [place] [Spiriva Respimat] 2 puff IH DAILY #30 inhaler 06/27/18 Amlodipine Besylate [Norvasc -] 10 mg PO DAILY 01/02/19 - AMA Did Patient Leave Against Medical Advice: No
== END 2019-01-07 09:42 | disposition home or self-care (01) | DRG 773 ==
LOC: YASAS 12:06 → Y3N 21:54
PROVIDERS: ADMIT Surgery; ATTEND Surgery
PROC: HZ2ZZZZ Detoxification Services for Substance Abuse Treatment (ICD-10-PCS; principal; 2019-01-02)
DX: F10.230 Alcohol dependence with withdrawal, uncomplicated (principal); F11.20 Opioid dependence, uncomplicated; F14.20 Cocaine dependence, uncomplicated; F17.213 Nicotine dependence, cigarettes, with withdrawal; F19.24 Other psychoactive substance dependence with psychoactive substance-induced mood disorder; I10 Essential (primary) hypertension; R94.5 Abnormal results of liver function studies; R76.8 Other specified abnormal immunological findings in serum; J44.9 Chronic obstructive pulmonary disease, unspecified; E03.9 Hypothyroidism, unspecified; Z87.438 Personal history of other diseases of male genital organs
CPT/HCPCS: 36415; 80053; 81003; 85027; 86593; 86780; J0735

== ENCOUNTER 2019-03-17 13:04 | Inpatient (IN) | payer OTHER ==
[2019-03-17 14:15] VITALS: BMI 20.8
--- NOTE | 2019-03-17 14:58 | HP ---
CIWA Score Nausea/Vomitin-Mild Nausea/No Vomiting Muscle Tremors: 3 Anxiety: 3 Agitation: 4-Moderately Restless Paroxysmal Sweats: 1-Minimal Palms Moist Orientation: 2-Disoriented Date<2 days Tacttile Disturbances: 0-None Auditory Disturbances: 0-None Visual Disturbances: 0-None Headache: 2-Mild CIWA-Ar Total Score: 16 - Admission Criteria OASAS Guidelines: Admission for Medically Managed Detox: Requires at least one of the followin. CIWA greater than 12 2. Seizures within the past 24 hours 3. Delirium tremens within the past 24 hours 4. Hallucinations within the past 24 hours 5. Acute intervention needed for co occurring medical disorder 6. Acute intervention needed for co occurring psychiatric disorder 7. Severe withdrawal that cannot be handled at a lower level of care (continued vomiting, continued diarrhea, abnormal vital signs) requiring intravenous medication and/or fluids 8. Admission ROS [facility] Chief Complaint: " I want to stop drinking." Allergies/Adverse Reactions: Allergies Allergy/AdvReac Type Severity Reaction Status Date / Time No Known Allergies Allergy Verified 03/17/19 14:05 History of Present Illness: Patient is a 58 year old male with alcohol dependence and cocaine use disorder. He was last here in 2018 and upon discharge he quickly relapsed. He was abstinent for only 2 months before relapsing. He is drinking 10 beers per day, last drank yesterday evening. He is using cocaine about 1 bag/ day, last used yesterday. He smokes ciggarettes 2 per day, last smoked this morning. PMH: Hypothyroidism on synthroid, HTN on meds, Asthma/ COPD on meds Psurg Hx: none Meds: See nursing listing. Psych Hx: Says he does not have depression though noted by nursing that he has. He lives with family and has no pending legal issues. - Ebola screening Have you traveled outside of the country in the last 21 days: No Have you had contact with anyone from an Ebola affected area: No Have you been sick,other than usual withdrawal symptoms: No Do you have a fever: No - Review of Systems Constitutional: Chills EENT: reports: No Symptoms Reported Respiratory: reports: SOB with Exertion Cardiac: reports: No Symptoms Reported GI: reports: Nausea, Abdominal cramping : reports: No Symptoms Reported Musculoskeletal: reports: Back Pain Integumentary: reports: No Symptoms Reported Neuro: reports: Headache Endocrine: reports: No Symptoms Reported Hematology: reports: No Symptoms Reported Psychiatric: reports: Judgement Intact, Mood/Affect Appropiate, Orientated x3 Other Systems: Reviewed and Negative Patient History - Patient Medical History Hx Anemia: No Hx Asthma: Yes Hx Chronic Obstructive Pulmonary Disease (COPD): Yes (on spiriva) Hx Cancer: No Hx Cardiac Disorders: No Hx Congestive Heart Failure: No Hx Hypertension: Yes (on medication) Hx Hypercholesterolemia: No Hx Pacemaker: No HX Cerebrovascular Accident: No Hx Seizures: No Hx Dementia: No Hx Diabetes: No Hx Gastrointestinal Disorders: No Hx Liver Disease: No Hx Genitourinary Disorders: No Hx Sexually Transmitted Disorders: Yes (syphilis in the past) Hx Renal Disease (ESRD): No Hx Thyroid Disease: Yes (ON SYNTHROID 150 MCG DAILY) Hx Human Immunodeficiency Virus (HIV): No (NEGATIVE IN 08/08) Hx Hepatitis C: No Hx Depression: Yes Hx Suicide Attempt: No Hx Bipolar Disorder: No Hx Schizophrenia: No - Patient Surgical History Past Surgical History: No Hx Neurologic Surgery: No Hx Cataract Extraction: No Hx Cardiac Surgery: No Hx Lung Surgery: No Hx Breast Surgery: No Hx Breast Biopsy: No Hx Abdominal Surgery: No Hx Appendectomy: No Hx Cholecystectomy: No Hx Genitourinary Surgery: No Hx Section: No Hx Orthopedic Surgery: No Anesthesia Reaction: No - PPD History Previous Implant?: Yes Documented Results: Negative w/proof Implanted On Prior R Admission?: Yes Date: 11/02/17 Results: 0 mm PPD to be Administered?: No - Smoking Cessation Smoking history: Former smoker Have you smoked in the past 12 months: Yes Aproximately how many cigarettes per day: 5 Cigars Per Day: 0 Hx Chewing Tobacco Use: No Initiated information on smoking cessation: Yes 'Breaking Loose' booklet given: 03/17/19 - Substances abused Alcohol Substance route: Oral Frequency: Daily Amount used: 10 BEER Age of first use: 17 Date of last use: 03/17/19 Cocaine Substance route: Smoking Frequency: Daily Amount used: 1 BAG Age of first use: 29 Date of last use: 03/16/19 Family Disease History - Family Disease History Family Disease History: Other: Mother (thyroid disease ) Admission Physical Exam BHS - Vital Signs Vital Signs: Vital Signs - 24 hr 03/17/19 14:01 Temperature 97.5 F L Pulse Rate 84 Respiratory 18 Rate Blood Pressure 149/84 - Physical General Appearance: Yes: Disheveled, Alcohol on Breath HEENTM: Yes: EOMI, Hearing grossly Normal, Normal ENT Inspection, Normocephalic , Normal Voice, Pharynx Normal, Tm's normal Respiratory: Yes: Chest Non-Tender, Lungs Clear, Normal Breath Sounds, No Respiratory Distress, No Accessory Muscle Use Neck: Yes: No masses,lesions,Nodules, Supple, Trachea in good position Breast: Yes: Within Normal Limits Cardiology: Yes: Regular Rhythm, S1, S2, Tachycardia Abdominal: Yes: Non Tender, Soft, Protuberent, Hepatomegaly Genitourinary: Yes: Within Normal Limits Back: Yes: Normal Inspection Musculoskeletal: Yes: full range of Motion, Gait Steady Extremities: Yes: Normal Capillary Refill, Normal Inspection, Normal Range of Motion, Non-Tender 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, Fully Oriented, Alert, Motor Strength 5/5, Depressed Affect Integumentary: Yes: Dry, Warm Lymphatic: Yes: Within Normal Limits - Diagnostic (1) Alcohol dependence with withdrawal Current Visit: Yes Status: Acute Qualifiers: Complication of substance-induced condition: uncomplicated Qualified Code(s ): F10.230 - Alcohol dependence with withdrawal, uncomplicated (2) Asthma Current Visit: Yes Status: Chronic (3) Cocaine dependence Current Visit: Yes Status: Chronic (4) Essential hypertension Current Visit: Yes Status: Chronic (5) Hypothyroidism Current Visit: Yes Status: Chronic (6) Methadone maintenance therapy patient Current Visit: Yes Status: Chronic Comment: on methadone 70 mg, dose pending verification (7) Nicotine dependence Current Visit: Yes Status: Chronic Qualifiers: Nicotine product type: cigarettes Substance use status: in withdrawal Qualified Code(s): F17.213 - Nicotine dependence, cigarettes, with withdrawal (8) Opioid dependence on agonist therapy Current Visit: Yes Status: Chronic Cleared for Admission S - Detox or Rehab [facility] Level of Care: Medically Managed Screened but not Admitted - Documentation of Visit Screened but not Admitted: No Breathalyzer - Breathalyzer Breathalyzer: 0.053 Vital Signs - Vital Signs Vital signs refused: No Temperature: 97.5 F Temperature source: Oral Pulse Rate: 84 Respiratory Rate: 18 Blood Pressure: 149/84 BP Location: Left Arm Blood Pressure position: Sitting - Height Height: 5 ft 9 in - Weight Weight: 141 lb Weight measurement method: Standing scale - BMI Body Mass Index (BMI): 20.8 - Bowel Function Bowel Movement: Yes Urine Drug Screen - Test Device Lot number: [id number] Expiration date: 12/19/20 - Control Is test valid?: Yes - Results Drug screen NEGATIVE: No Urine drug screen results: ELVA-Cocaine, MTD-Methadone Inpatient Rehab Admission - Rehab Decision to Admit Inpatient rehab admission?: No
[2019-03-17] MEDS ORDERED: MAG HYDROX/AL HYDROX/SIMETH 30 ML UNIT-DOSE CUP PO PRN (15:10)
[2019-03-17] MEDS ORDERED: ACETAMINOPHEN 325 MG TABLET (FP) PO PRN ×2 (15:10)
[2019-03-17] MEDS ORDERED: chlordiazePOXIDE HCL 25 MG CAPSULE PO PRN (15:10)
[2019-03-17] MEDS ORDERED: MAGNESIUM HYDROX 2400MG/30ML ORAL SUSPENSION 30 ML CUP PO PRN (15:10)
[2019-03-17] MEDS ORDERED: hydrOXYzine PAMOATE 25 MG CAPSULE (FP) PO PRN (15:10)
[2019-03-17] MEDS ORDERED: MAGNESIUM CITRATE 300 ML BOTTLE PO PRN (15:10)
[2019-03-17] MEDS ORDERED: BISMUTH SUBSALICYLATE 524 MG/30 ML UD PO PRN (15:10)
[2019-03-17] MEDS ORDERED: MENTHOL/PHENOL 1 EACH UD MM PRN (15:10)
[2019-03-17] MEDS ORDERED: METHOCARBAMOL 500 MG TABLET PO PRN (15:10)
[2019-03-17] MEDS ORDERED: LEVOTHYROXINE NA 150 MCG TABLET PO SCH (17:00)
[2019-03-17] MEDS: ASPIRIN 81 MG CHEWABLE TABLETS PO SCH (17:31)
[2019-03-17] MEDS: amLODIPine BESYLATE 10 MG TABLET (FP) PO SCH (17:31)
[2019-03-17] MEDS ORDERED: LEVOTHYROXINE 100 MCG, LEVOTHYROXINE 50 MCG PO ONE (18:00)
[2019-03-17 18:15] LABS: HEMATOCRIT 40.9 % (35.4-49); MCH 33.4 pg (25.7-33.7); MCHC 34.3 g/dl (32.0-35.9); MEAN CELL VOLUME 97.4 fl (80-96); MEAN PLT VOLUME 8.6 fl (7.5-11.1); PLATELET COUNT 269 K/MM3 (134-434); RBC 4.19 M/mm3 (4.00-5.60); RDW 13.1 % (11.9-15.9); WHITE BLOOD COUNT 7.9 K/mm3 (4.0-10.0)
[2019-03-17 18:26] LABS: ALBUMIN 3.8 g/dl (3.4-5.0); BILIRUBIN,TOTAL 0.3 mg/dL (0.2-1); BLOOD UREA NITROGEN 8.9 mg/dL (7-18); CALCIUM 8.9 mg/dL (8.5-10.1); CREATININE 0.6 mg/dL (0.55-1.3); POTASSIUM 3.8 mmol/L (3.5-5.1); TOT PROT 8.4 g/dl (6.4-8.2)
[2019-03-17] MEDS: FOLIC ACID 1 MG TABLET (FP) PO SCH (19:07)
[2019-03-17] MEDS: TIOTROPIUM BROMIDE 2.5 MCG (SPIRIVA) RESPIMAT INHALER IH SCH (19:07)
[2019-03-17] MEDS: THIAMINE HCL 100 MG TABLET (FP) PO SCH (22:31)
[2019-03-17] MEDS: chlordiazePOXIDE HCL 25 MG CAPSULE PO SCH (22:31)
[2019-03-18] MEDS: chlordiazePOXIDE HCL 25 MG CAPSULE PO SCH ×4 (06:12→22:25)
[2019-03-18] MEDS ORDERED: LEVOTHYROXINE NA 25 MCG TABLET (FP) ONE (06:17)
[2019-03-18] MEDS ORDERED: LEVOTHYROXINE NA 100 MCG TABLET (FP) ONE (06:18)
[2019-03-18] MEDS: LEVOTHYROXINE 100 MCG, LEVOTHYROXINE 50 MCG PO SCH (06:47)
[2019-03-18] MEDS: amLODIPine BESYLATE 10 MG TABLET (FP) PO SCH (10:34)
[2019-03-18] MEDS: PRENATAL VITAMINS W/ FOLIC ACID TABLET (FP) PO SCH (10:34)
[2019-03-18] MEDS: ASPIRIN 81 MG CHEWABLE TABLETS PO SCH (10:34)
[2019-03-18] MEDS: FOLIC ACID 1 MG TABLET (FP) PO SCH (10:34)
[2019-03-18] MEDS: TIOTROPIUM BROMIDE 2.5 MCG (SPIRIVA) RESPIMAT INHALER IH SCH (10:35)
--- NOTE | 2019-03-18 11:16 | PN ---
S CIWA - CIWA Score Nausea/Vomitin Muscle Tremors: 2 Anxiety: 3 Agitation: 3 Paroxysmal Sweats: 1-Minimal Palms Moist Orientation: 0-Oriented Tacttile Disturbances: 0-None Auditory Disturbances: 0-None Visual Disturbances: 0-None Headache: 2-Mild CIWA-Ar Total Score: 13 S Progress Note (SOAP) Subjective: alert,irritable,anxious,interrupted sleep,tremor Objective: 03/18/19 11:13 Vital Signs Temperature 98.3 F 03/18/19 09:22 Pulse Rate 76 03/18/19 09:22 Respiratory Rate 18 03/18/19 09:22 Blood Pressure 123/79 03/18/19 09:22 O2 Sat by Pulse Oximetry (%) Laboratory Last Values WBC 7.9 K/mm3 (4.0-10.0) 03/17/19 15:10 RBC 4.19 M/mm3 (4.00-5.60) 03/17/19 15:10 Hgb 14.0 GM/dL (11.7-16.9) 03/17/19 15:10 Hct 40.9 % (35.4-49) 03/17/19 15:10 MCV 97.4 fl (80-96) H 03/17/19 15:10 MCH 33.4 pg (25.7-33.7) 03/17/19 15:10 MCHC 34.3 g/dl (32.0-35.9) 03/17/19 15:10 RDW 13.1 % (11.9-15.9) 03/17/19 15:10 Plt Count 269 K/MM3 (134-434) D 03/17/19 15:10 MPV 8.6 fl (7.5-11.1) 03/17/19 15:10 Sodium 136 mmol/L (136-145) 03/17/19 15:10 Potassium 3.8 mmol/L (3.5-5.1) 03/17/19 15:10 Chloride 100 mmol/L (98-107) 03/17/19 15:10 Carbon Dioxide 28 mmol/L (21-32) 03/17/19 15:10 Anion Gap 8 MMOL/L (8-16) 03/17/19 15:10 BUN 8.9 mg/dL (7-18) 03/17/19 15:10 Creatinine 0.6 mg/dL (0.55-1.3) 03/17/19 15:10 Est GFR (CKD-EPI)AfAm 127.55 03/17/19 15:10 Est GFR (CKD-EPI)NonAf 110.05 03/17/19 15:10 Random Glucose 161 mg/dL (74-106) H 03/17/19 15:10 Calcium 8.9 mg/dL (8.5-10.1) 03/17/19 15:10 Total Bilirubin 0.3 mg/dL (0.2-1) 03/17/19 15:10 AST 51 U/L (15-37) H 03/17/19 15:10 ALT 55 U/L (13-61) 03/17/19 15:10 Alkaline Phosphatase 133 U/L (45-117) H 03/17/19 15:10 Total Protein 8.4 g/dl (6.4-8.2) H 03/17/19 15:10 Albumin 3.8 g/dl (3.4-5.0) 03/17/19 15:10 Assessment: 03/18/19 11:14 withdrawal symptom Plan: continue detox librium,glucose 161,ast 51,alk phosphatase 133,repeat cmp in am, fasting glucose in am
[2019-03-18] MEDS ORDERED: METHADONE HCL 10 MG TABLET PO ONE (11:20)
[2019-03-18] MEDS ORDERED: METHADONE 40 MG, METHADONE 30 MG PO ONE (11:35)
[2019-03-18] MEDS ORDERED: METHADONE HCL 10 MG TABLET ONE (11:59)
[2019-03-18] MEDS ORDERED: METHADONE HCL 40 MG DISPERSABLE TABLET ONE (11:59)
--- NOTE | 2019-03-18 14:16 | CONSULT ---
[facility] Psychiatric Consult - Data Date of interview: 03/18/19 Admission source: Self-referred Identifying data: Mr Mcgill is a 58 years old single male, father of 3 children, unemployed receiving food stamp, living with his aunt seeking detox treatment for alcohol and cocaine Substance Abuse History: Reports history of alcohol and cocaine use. Refer to addiction counselor's summary for further information Medical History: Significant for hypertension, hypothyroidism, COPD and history of treatment for syphilis. Patient is on methadone 70 mg/day from [facility]. Smokes 5 cigarettes daily Psychiatric History: Denies history of previous psychiatric treatment Physical/Sexual Abuse/Trauma History: Denies history of emotional, physical or sexual abuse as well as DV relationship Additional Comment: Reports a few midemeanor arrests on charges on drinking in public and cocaine possession. Denies being on probation at present Mental Status Exam - Mental Status Exam Alert and Oriented to: Person Cognitive Function: Fair Patient Appearance: Disheveled Mood: Depressed Patient Behavior: Cooperative Speech Pattern: Clear Voice Loudness: Normal Thought Process: Intact, Goal Oriented Hallucinations: Denies Suicidal Ideation: Denies Homicidal Ideation: Denies Sleep: Poorly Appetite: Good Muscle strength/Tone: Normal Gait/Station: Normal Psychiatric Findings - Problem List ([place] 1, 2,3) (1) Substance induced mood disorder Current Visit: Yes Status: Acute (2) Substance-induced sleep disorder Current Visit: Yes Status: Acute (3) Alcohol dependence with withdrawal Current Visit: Yes Status: Acute Qualifiers: Complication of substance-induced condition: uncomplicated Qualified Code(s ): F10.230 - Alcohol dependence with withdrawal, uncomplicated (4) Cocaine dependence Current Visit: Yes Status: Acute (5) Opioid dependence on agonist therapy Current Visit: Yes Status: Chronic (6) Nicotine dependence Current Visit: Yes Status: Chronic Qualifiers: Nicotine product type: cigarettes Substance use status: in withdrawal Qualified Code(s): F17.213 - Nicotine dependence, cigarettes, with withdrawal (7) Asthma Current Visit: Yes Status: Chronic (8) Essential hypertension Current Visit: Yes Status: Chronic (9) Hypothyroidism Current Visit: Yes Status: Chronic (10) Syphilis contact, treated Current Visit: No Status: Resolved - Initial Treatment Plan Initial Treatment Plan: 1) Start Melatonin 5 mg po HS prn for insomnia. 2) Continue inpatient detoxification
[2019-03-18 14:53] LABS: RPR REACTIVE 1:1 (NONREACTIVE)
[2019-03-18 14:54] LABS: TREPONEMA ANTIBODY PREVIOUSLY REACTIVE (NONREACTIVE)
[2019-03-18] MEDS: THIAMINE HCL 100 MG TABLET (FP) PO SCH (22:25)
[2019-03-19] MEDS ORDERED: METHADONE HCL 10 MG TABLET ONE (04:57)
[2019-03-19] MEDS ORDERED: METHADONE HCL 40 MG DISPERSABLE TABLET ONE (04:58)
[2019-03-19] MEDS ORDERED: METHADONE HCL 40 MG DISPERSABLE TABLET PO SCH (06:00)
[2019-03-19] MEDS: chlordiazePOXIDE HCL 25 MG CAPSULE PO SCH ×4 (06:07→22:40)
[2019-03-19] MEDS: METHADONE 40 MG, METHADONE 30 MG PO SCH (06:08)
[2019-03-19] MEDS: LEVOTHYROXINE 100 MCG, LEVOTHYROXINE 50 MCG PO SCH (09:01)
[2019-03-19] MEDS: ASPIRIN 81 MG CHEWABLE TABLETS PO SCH (10:32)
[2019-03-19] MEDS: PRENATAL VITAMINS W/ FOLIC ACID TABLET (FP) PO SCH (10:32)
[2019-03-19] MEDS: TIOTROPIUM BROMIDE 2.5 MCG (SPIRIVA) RESPIMAT INHALER IH SCH (10:33)
[2019-03-19] MEDS: FOLIC ACID 1 MG TABLET (FP) PO SCH (10:33)
--- NOTE | 2019-03-19 11:07 | PN ---
S CIWA - CIWA Score Nausea/Vomitin Muscle Tremors: 2 Anxiety: 2 Agitation: 3 Paroxysmal Sweats: No Perspiration Orientation: 0-Oriented Tacttile Disturbances: 0-None Auditory Disturbances: 0-None Visual Disturbances: 0-None Headache: 1-Very Mild CIWA-Ar Total Score: 10 S Progress Note (SOAP) Subjective: alert,irritable,anxious,interrupted sleep,tremor Objective: 03/19/19 11:04 Vital Signs Temperature 96.8 F L 03/19/19 09:35 Pulse Rate 70 03/19/19 09:35 Respiratory Rate 18 03/19/19 09:35 Blood Pressure 109/51 L 03/19/19 09:35 O2 Sat by Pulse Oximetry (%) Laboratory Last Values WBC 7.9 K/mm3 (4.0-10.0) 03/17/19 15:10 RBC 4.19 M/mm3 (4.00-5.60) 03/17/19 15:10 Hgb 14.0 GM/dL (11.7-16.9) 03/17/19 15:10 Hct 40.9 % (35.4-49) 03/17/19 15:10 MCV 97.4 fl (80-96) H 03/17/19 15:10 MCH 33.4 pg (25.7-33.7) 03/17/19 15:10 MCHC 34.3 g/dl (32.0-35.9) 03/17/19 15:10 RDW 13.1 % (11.9-15.9) 03/17/19 15:10 Plt Count 269 K/MM3 (134-434) D 03/17/19 15:10 MPV 8.6 fl (7.5-11.1) 03/17/19 15:10 Sodium 136 mmol/L (136-145) 03/17/19 15:10 Potassium 3.8 mmol/L (3.5-5.1) 03/17/19 15:10 Chloride 100 mmol/L (98-107) 03/17/19 15:10 Carbon Dioxide 28 mmol/L (21-32) 03/17/19 15:10 Anion Gap 8 MMOL/L (8-16) 03/17/19 15:10 BUN 8.9 mg/dL (7-18) 03/17/19 15:10 Creatinine 0.6 mg/dL (0.55-1.3) 03/17/19 15:10 Est GFR (CKD-EPI)AfAm 127.55 03/17/19 15:10 Est GFR (CKD-EPI)NonAf 110.05 03/17/19 15:10 Random Glucose 161 mg/dL (74-106) H 03/17/19 15:10 Calcium 8.9 mg/dL (8.5-10.1) 03/17/19 15:10 Total Bilirubin 0.3 mg/dL (0.2-1) 03/17/19 15:10 AST 51 U/L (15-37) H 03/17/19 15:10 ALT 55 U/L (13-61) 03/17/19 15:10 Alkaline Phosphatase 133 U/L (45-117) H 03/17/19 15:10 Total Protein 8.4 g/dl (6.4-8.2) H 03/17/19 15:10 Albumin 3.8 g/dl (3.4-5.0) 03/17/19 15:10 RPR Titer Reactive 1:1 (NONREACTIVE) H 03/17/19 15:10 T.pallidum Ab (MHA) Previously reactive (NONREACTIVE) 03/17/19 15:10 previously treated for syphilis Assessment: 03/19/19 11:06 withdrawal symptom Plan: continue detox librium regimen,initial glucose is161,ast 51,alt 55,fasting glucose in am
--- NOTE | 2019-03-19 11:10 | PN ---
BHS Progress Note Note: fasting glucose and cmp pending
[2019-03-19 11:49] LABS: ALBUMIN 3.3 g/dl (3.4-5.0); BILIRUBIN,TOTAL 0.3 mg/dL (0.2-1); BLOOD UREA NITROGEN 14.3 mg/dL (7-18); CALCIUM 9.3 mg/dL (8.5-10.1); CREATININE 0.6 mg/dL (0.55-1.3); POTASSIUM 3.8 mmol/L (3.5-5.1); TOT PROT 7.6 g/dl (6.4-8.2)
[2019-03-19] MEDS: amLODIPine BESYLATE 10 MG TABLET (FP) PO SCH (14:57)
[2019-03-19] MEDS: THIAMINE HCL 100 MG TABLET (FP) PO SCH (22:40)
[2019-03-20] MEDS ORDERED: chlordiazePOXIDE HCL 10 MG CAPSULE PO PRN
[2019-03-20] MEDS ORDERED: METHADONE HCL 10 MG TABLET ONE (04:28)
[2019-03-20] MEDS ORDERED: METHADONE HCL 40 MG DISPERSABLE TABLET ONE (04:28)
[2019-03-20] MEDS: METHADONE 40 MG, METHADONE 30 MG PO SCH (05:23)
[2019-03-20] MEDS: chlordiazePOXIDE HCL 10 MG CAPSULE PO SCH ×4 (05:23→22:24)
[2019-03-20] MEDS: LEVOTHYROXINE 100 MCG, LEVOTHYROXINE 50 MCG PO SCH (06:08)
--- NOTE | 2019-03-20 10:33 | PN ---
[facility] CIWA - CIWA Score Nausea/Vomitin-No Nausea/No Vomiting Muscle Tremors: 3 Anxiety: 0-No Anxiety, at Ease Agitation: 1-Slight > Activity Paroxysmal Sweats: No Perspiration Orientation: 0-Oriented Tacttile Disturbances: 0-None Auditory Disturbances: 0-None Visual Disturbances: 0-None Headache: 0-None Present CIWA-Ar Total Score: 4 BHS Progress Note (SOAP) Subjective: Patient in day 3 of detox and doing much better. Few withdrawal symptoms. Objective: 03/20/19 10:29 BP:113/67 P:90 R:18 T:97.8 Abnormal Lab Results 03/19/19 07:30 Chloride 96 L Alkaline Phosphatase 121 H Albumin 3.3 L Assessment: 03/20/19 10:30 1. Abnormal labs 2. Alcohol Detox Plan: 1. Noted Alk Phos 133 but improved from admission and consistent with alcohol use. Noted Hypoalbuminemia though that is consistent with poor nutrition and is lower than admission may be a reflection of proper hydration. Hypochloremia may also be due to overhydration or result of hyperemesis from withdrawals. 2. Continue detox protocol.
[2019-03-20] MEDS: PRENATAL VITAMINS W/ FOLIC ACID TABLET (FP) PO SCH (10:41)
[2019-03-20] MEDS: FOLIC ACID 1 MG TABLET (FP) PO SCH (10:41)
[2019-03-20] MEDS: amLODIPine BESYLATE 10 MG TABLET (FP) PO SCH (10:41)
[2019-03-20] MEDS: ASPIRIN 81 MG CHEWABLE TABLETS PO SCH (10:42)
[2019-03-20] MEDS: TIOTROPIUM BROMIDE 2.5 MCG (SPIRIVA) RESPIMAT INHALER IH SCH (10:46)
[2019-03-20] MEDS: THIAMINE HCL 100 MG TABLET (FP) PO SCH (22:23)
[2019-03-21] MEDS ORDERED: METHADONE HCL 10 MG TABLET ONE (04:53)
[2019-03-21] MEDS ORDERED: METHADONE HCL 40 MG DISPERSABLE TABLET ONE (04:53)
[2019-03-21] MEDS: chlordiazePOXIDE HCL 10 MG CAPSULE PO SCH ×2 (05:34→17:17)
[2019-03-21] MEDS: METHADONE 40 MG, METHADONE 30 MG PO SCH (05:34)
[2019-03-21] MEDS: LEVOTHYROXINE 100 MCG, LEVOTHYROXINE 50 MCG PO SCH (06:04)
--- NOTE | 2019-03-21 10:05 | PN ---
S CIWA - CIWA Score Nausea/Vomitin-No Nausea/No Vomiting Muscle Tremors: None Anxiety: 2 Agitation: 0-Normal Activity Paroxysmal Sweats: 2 Orientation: 0-Oriented Tacttile Disturbances: 0-None Auditory Disturbances: 0-None Visual Disturbances: 0-None Headache: 0-None Present CIWA-Ar Total Score: 4 BHS Progress Note (SOAP) Subjective: c/o sweats and anxiety. Objective: 03/21/19 10:03 Vital Signs 03/21/19 03/21/19 03/21/19 03:30 06:40 06:43 Temperature 97.9 F 97.9 F Pulse Rate 81 81 Respiratory 18 18 18 Rate Blood Pressure 140/66 140/66 03/21/19 03/21/19 03/21/19 09:29 09:31 09:32 Temperature 97.7 F 97.7 F 97.7 F Pulse Rate 91 H 91 H 91 H Respiratory 18 18 18 Rate Blood Pressure 113/71 113/71 113/71 Assessment: 03/21/19 10:04 AOX3, in no respiratory distress. Full ROM, ambulating in the unit. Mild withdrawal symptoms. For D/C tomorrow (03/22/2019). 03/21/19 10:04 Plan: continue detox. D/C in AM.
[2019-03-21] MEDS: FOLIC ACID 1 MG TABLET (FP) PO SCH (10:23)
[2019-03-21] MEDS: PRENATAL VITAMINS W/ FOLIC ACID TABLET (FP) PO SCH (10:23)
[2019-03-21] MEDS: ASPIRIN 81 MG CHEWABLE TABLETS PO SCH (10:23)
[2019-03-21] MEDS: amLODIPine BESYLATE 10 MG TABLET (FP) PO SCH (10:23)
[2019-03-21] MEDS: IBUPROFEN 400 MG TABLET (FP) PO PRN ×2 (10:25→19:54)
[2019-03-21] MEDS: TIOTROPIUM BROMIDE 2.5 MCG (SPIRIVA) RESPIMAT INHALER IH SCH (10:26)
--- NOTE | 2019-03-21 14:17 | PN ---
S Progress Note Note: Home Medications Medication Instructions Recorded Tiotropium [place] [Spiriva] 18 mcg IH DAILY #30 cap.w.dev 03/23/13 Amlodipine Besylate [Norvasc -] 10 mg PO DAILY #30 tablet 03/21/19 Aspirin [ASA -] 81 mg PO DAILY #30 tab.chew 03/21/19 Folic Acid - 1 mg PO DAILY #30 tablet 03/21/19 Levothyroxine [Synthroid -] 150 mcg PO DAILY #30 tablet 03/21/19 Tiotropium [place] [Spiriva 2 puff IH DAILY #30 inhaler 03/21/19 Respimat] Prescriptions sent to [facility] pharmacy ([address] [place] [address], [phone]). Prescription for levothyroxine not sent, pt states he has enough before he sees his pmd for another refill in march,. Pt is encouraged to follow-up with his pmd after discharged. Pt verbalized understanding.
[2019-03-21] MEDS: MELATONIN 5 MG TABLETS PO PRN (22:21)
[2019-03-21] MEDS: THIAMINE HCL 100 MG TABLET (FP) PO SCH (22:21)
[2019-03-22] MEDS ORDERED: METHADONE HCL 10 MG TABLET ONE (04:07)
[2019-03-22] MEDS ORDERED: METHADONE HCL 40 MG DISPERSABLE TABLET ONE (04:08)
[2019-03-22] MEDS ORDERED: chlordiazePOXIDE HCL 10 MG CAPSULE PO ONE (05:00)
[2019-03-22] MEDS: METHADONE 40 MG, METHADONE 30 MG PO SCH (05:57)
[2019-03-22] MEDS: LEVOTHYROXINE 100 MCG, LEVOTHYROXINE 50 MCG PO SCH (06:00)
[2019-03-22] MEDS: ASPIRIN 81 MG CHEWABLE TABLETS PO SCH (09:22)
[2019-03-22] MEDS: PRENATAL VITAMINS W/ FOLIC ACID TABLET (FP) PO SCH (09:23)
[2019-03-22] MEDS: TIOTROPIUM BROMIDE 2.5 MCG (SPIRIVA) RESPIMAT INHALER IH SCH (09:23)
[2019-03-22] MEDS: amLODIPine BESYLATE 10 MG TABLET (FP) PO SCH (09:23)
[2019-03-22] MEDS: FOLIC ACID 1 MG TABLET (FP) PO SCH (09:23)
--- NOTE | 2019-03-22 13:57 | PN ---
[facility] CIWA - CIWA Score Nausea/Vomitin-No Nausea/No Vomiting Muscle Tremors: None Anxiety: 2 Agitation: 2 Paroxysmal Sweats: 3 Orientation: 0-Oriented Tacttile Disturbances: 0-None Auditory Disturbances: 0-None Visual Disturbances: 0-None Headache: 0-None Present CIWA-Ar Total Score: 7 S Progress Note (SOAP) Subjective: Anxious, chills, stomachache, back pain, c/o left knee pain 01/28 stated people told him in the past that he has gout (was never dx with gout and never treated) . Patient stated his left knee has been hurting and it started feeling better today and swelling went down. Objective: 03/22/19 13:54 Last Vital Signs Temp Pulse Resp BP Pulse Ox 98.2 F 83 16 127/76 03/22/19 13:33 03/22/19 13:33 03/22/19 13:33 03/22/19 13:33 PE: Knees: no swelling noted, FROM both knees, normal color Laboratory Tests 03/17/19 03/17/19 03/17/19 15:10 15:10 15:10 WBC 7.9 RBC 4.19 Hgb 14.0 Hct 40.9 MCV 97.4 H MCH 33.4 MCHC 34.3 RDW 13.1 Plt Count 269 D MPV 8.6 Sodium 136 Potassium 3.8 Chloride 100 Carbon Dioxide 28 Anion Gap 8 BUN 8.9 Creatinine 0.6 Est GFR (CKD-EPI)AfAm 127.55 Est GFR (CKD-EPI)NonAf 110.05 Random Glucose 161 H Fasting Glucose Calcium 8.9 Total Bilirubin 0.3 AST 51 H ALT 55 Alkaline Phosphatase 133 H Total Protein 8.4 H Albumin 3.8 RPR Titer Reactive 1:1 H T.pallidum Ab (MHA) Previously reactive 03/19/19 03/20/19 07:30 07:30 WBC RBC Hgb Hct MCV MCH MCHC RDW Plt Count MPV Sodium 137 Potassium 3.8 Chloride 96 L Carbon Dioxide 32 Anion Gap 8 BUN 14.3 Creatinine 0.6 Est GFR (CKD-EPI)AfAm 127.55 Est GFR (CKD-EPI)NonAf 110.05 Random Glucose 101 Fasting Glucose 91 Calcium 9.3 Total Bilirubin 0.3 AST 36 ALT 42 Alkaline Phosphatase 121 H Total Protein 7.6 Albumin 3.3 L RPR Titer T.pallidum Ab ([facility]) Labs reviewed Assessment: 03/22/19 13:55 Withdrawal sxs Plan: Continue detox Encouraged PO water hydration Discharge canceled for today due to patient withdrawal sxs and left knee pain Patient scheduled for discharge tomorrow Left knee pain: Zachery-jessica cream bid, encouraged tylenol/motrin prn, follow up with PCP for further evaluation
[2019-03-22] MEDS: METHYL SALICYLATE/MENTHOL OINT 30 GM TUBE TP SCH ×2 (14:49→22:32)
[2019-03-22] MEDS: MELATONIN 5 MG TABLETS PO PRN (22:31)
[2019-03-22] MEDS: THIAMINE HCL 100 MG TABLET (FP) PO SCH (22:31)
[2019-03-23] MEDS ORDERED: METHADONE HCL 10 MG TABLET ONE (04:39)
[2019-03-23] MEDS ORDERED: METHADONE HCL 40 MG DISPERSABLE TABLET ONE (04:40)
[2019-03-23] MEDS: METHADONE 40 MG, METHADONE 30 MG PO SCH (06:01)
[2019-03-23] MEDS: LEVOTHYROXINE 100 MCG, LEVOTHYROXINE 50 MCG PO SCH (06:02)
[2019-03-23 07:51] VITALS: BP 122/80; PULSE 76; TEMP 98.2
--- NOTE | 2019-03-23 09:32 | DS ---
[facility] Detox Discharge Summary Admission Date: 03/17/19 Discharge Date: 03/23/19 - History Present History: Alcohol Dependence, Cocaine Dependence, MMTP - Physical Exam Results Vital Signs: Vital Signs Temperature 98.2 F 03/23/19 07:50 Pulse Rate 76 03/23/19 07:50 Respiratory Rate 18 03/23/19 07:50 Blood Pressure 122/80 03/23/19 07:50 O2 Sat by Pulse Oximetry (%) Pertinent Admission Physical Exam Findings: pt arrived in withdrawals Laboratory Tests 03/17/19 03/17/19 03/17/19 15:10 15:10 15:10 WBC 7.9 RBC 4.19 Hgb 14.0 Hct 40.9 MCV 97.4 H MCH 33.4 MCHC 34.3 RDW 13.1 Plt Count 269 D MPV 8.6 Sodium 136 Potassium 3.8 Chloride 100 Carbon Dioxide 28 Anion Gap 8 BUN 8.9 Creatinine 0.6 Est GFR (CKD-EPI)AfAm 127.55 Est GFR (CKD-EPI)NonAf 110.05 Random Glucose 161 H Fasting Glucose Calcium 8.9 Total Bilirubin 0.3 AST 51 H ALT 55 Alkaline Phosphatase 133 H Total Protein 8.4 H Albumin 3.8 RPR Titer Reactive 1:1 H T.pallidum Ab (MHA) Previously reactive 03/19/19 03/20/19 07:30 07:30 WBC RBC Hgb Hct MCV MCH MCHC RDW Plt Count MPV Sodium 137 Potassium 3.8 Chloride 96 L Carbon Dioxide 32 Anion Gap 8 BUN 14.3 Creatinine 0.6 Est GFR (CKD-EPI)AfAm 127.55 Est GFR (CKD-EPI)NonAf 110.05 Random Glucose 101 Fasting Glucose 91 Calcium 9.3 Total Bilirubin 0.3 AST 36 ALT 42 Alkaline Phosphatase 121 H Total Protein 7.6 Albumin 3.3 L RPR Titer T.pallidum Ab (MHA) pt is aaox3 ambulating no acute distress - Treatment Hospital Course: Detox Protocol Followed, Detoxed Safely, Responded well, Discharged Condition Good, Rehab Referral Accepted Patient has Accepted a Rehab Referral to: pt declined rehab; referred back to his mmtp - Medication Discharge Medications: Ambulatory Orders Tiotropium [place] [Spiriva] 18 mcg IH DAILY #30 cap.w.dev 03/23/13 Amlodipine Besylate [Norvasc -] 10 mg PO DAILY #30 tablet 03/21/19 Aspirin [ASA -] 81 mg PO DAILY #30 tab.chew 03/21/19 Folic Acid - 1 mg PO DAILY #30 tablet 03/21/19 Levothyroxine [Synthroid -] 150 mcg PO DAILY #30 tablet 03/21/19 Tiotropium [place] [Spiriva Respimat] 2 puff IH DAILY #30 inhaler 03/21/19 - Diagnosis (1) Alcohol dependence with withdrawal Current Visit: Yes Status: Chronic Qualifiers: Complication of substance-induced condition: uncomplicated Qualified Code(s ): F10.230 - Alcohol dependence with withdrawal, uncomplicated (2) Cocaine dependence Current Visit: Yes Status: Chronic (3) Substance induced mood disorder Current Visit: Yes Status: Acute (4) Substance-induced sleep disorder Current Visit: Yes Status: Acute (5) Asthma Current Visit: Yes Status: Chronic (6) Essential hypertension Current Visit: Yes Status: Chronic (7) Hypothyroidism Current Visit: Yes Status: Chronic (8) Methadone maintenance therapy patient Current Visit: Yes Status: Chronic (9) Nicotine dependence Current Visit: Yes Status: Chronic Qualifiers: Nicotine product type: cigarettes Substance use status: uncomplicated Qualified Code(s): F17.210 - Nicotine dependence, cigarettes, uncomplicated (10) Opioid dependence on agonist therapy Current Visit: Yes Status: Chronic (11) Elevated liver enzymes Current Visit: No Status: Acute (12) Insomnia Current Visit: No Status: Acute Qualifiers: Insomnia type: unspecified Qualified Code(s): G47.00 - Insomnia, unspecified (13) Positive RPR test Current Visit: No Status: Acute (14) Substance induced mood disorder Current Visit: No Status: Chronic (15) Syphilis contact, treated Current Visit: No Status: Resolved
== END 2019-03-23 09:58 | disposition home or self-care (01) | DRG 773 ==
LOC: YASAS 13:04 → Y6N 15:32
PROVIDERS: ADMIT Surgery; ATTEND Surgery
PROC: HZ2ZZZZ Detoxification Services for Substance Abuse Treatment (ICD-10-PCS; principal; 2019-03-17)
DX: F10.230 Alcohol dependence with withdrawal, uncomplicated (principal); F11.20 Opioid dependence, uncomplicated; F14.20 Cocaine dependence, uncomplicated; F17.210 Nicotine dependence, cigarettes, uncomplicated; F19.24 Other psychoactive substance dependence with psychoactive substance-induced mood disorder; F19.282 Other psychoactive substance dependence with psychoactive substance-induced sleep disorder; I10 Essential (primary) hypertension; J44.9 Chronic obstructive pulmonary disease, unspecified; E03.9 Hypothyroidism, unspecified; R94.5 Abnormal results of liver function studies; G47.00 Insomnia, unspecified; R76.8 Other specified abnormal immunological findings in serum; R00.0 Tachycardia, unspecified; Z87.438 Personal history of other diseases of male genital organs
CPT/HCPCS: 36415; 80053; 82947; 85027; 86593; 86780

== ENCOUNTER 2019-07-24 16:11 | Inpatient (IN) | payer OTHER ==
[2019-07-24 17:45] VITALS: BMI 21.1
--- NOTE | 2019-07-24 19:16 | HP ---
CIWA Score Nausea/Vomitin-No Nausea/No Vomiting Muscle Tremors: 4-Moderate,w/Arms Extend Anxiety: 3 Agitation: 1-Slight > Activity Paroxysmal Sweats: 3 (Increased facial moisture) Orientation: 0-Oriented Tacttile Disturbances: 1-Very Mild Itch/Numbness Auditory Disturbances: 0-None Visual Disturbances: 0-None Headache: 0-None Present CIWA-Ar Total Score: 12 - Admission Criteria OASAS Guidelines: Admission for Medically Managed Detox: Requires at least one of the followin. CIWA greater than 12 2. Seizures within the past 24 hours 3. Delirium tremens within the past 24 hours 4. Hallucinations within the past 24 hours 5. Acute intervention needed for co occurring medical disorder 6. Acute intervention needed for co occurring psychiatric disorder 7. Severe withdrawal that cannot be handled at a lower level of care (continued vomiting, continued diarrhea, abnormal vital signs) requiring intravenous medication and/or fluids 8. Patient presents the following: CIWA greater than 12 (ROSELIA O.060) Admission Criteria Met: Admission criteria met Admitting History and Physical - Smoking History Smoking history: Former smoker Have you smoked in the past 12 months: Yes Aproximately how many cigarettes per day: 5 - Alcohol/Substance Use Hx Alcohol Use: Yes Admission ROS BHS - HPI Chief Complaint: States I want to detox from cocaine and liquor. Allergies/Adverse Reactions: Allergies Allergy/AdvReac Type Severity Reaction Status Date / Time No Known Allergies Allergy Verified 07/24/19 17:38 History of Present Illness: 59 yo presents w/ alcohol withdrawal seeking detox. Also presents w/ cocaine use disorder. Last here in 03/23/2019 and states relapsed after 2 months. Denies hx seizures, overdoses or blackouts. Alcohol use since age 17: Currently drinks 12- 12 oz beers per day. Last drank this a.m. Cocaine use since age 29: Currently sniffing about $20/ day. Last used 11 pm yesterday. Nicotine use since age 14: Stopped smoking 1 week ago. Heroin use began at age 39. States currently on [facility] MMTP program. States on Methadone 70 mg PO Daily. Last medicated this a.m. States did not get weekend bottles. Does not have a Narcan kit at home. NEEDS DOSE VERIFIED. PMHx: Hypothyroidism, HTN, Asthma/COPD; RPR+1:1 10/31/17 EKG abn. MHx: Denies depression,. Denies thoughts of harming self or others. SHx: Lives w a friend. Unemployed. Denies legal issues. Patient Name: Davin Mcgill Date: 1960 Address: [address] [place] [id number] Sex: Male Rx Written Rx Dispensed Drug Quantity Days Supply Prescriber Name 10/24/2018 10/24/2018 hydrocodone-acetaminophen 5-325 mg tablet 12 3 Ko, Michi Exam Limitations: No Limitations - Ebola screening Have you traveled outside of the country in the last 21 days: No (N) Have you had contact with anyone from an Ebola affected area: No Have you been sick,other than usual withdrawal symptoms: No Do you have a fever: No - Review of Systems Constitutional: Chills, Diaphoresis, Weight Stable EENT: reports: Dental Problems (Missing teeth. Able to chew and swallow ok) Respiratory: reports: SOB at Rest (when sleeping) Cardiac: reports: No Symptoms Reported GI: reports: Constipated (firm, brown BM this a.m.) : reports: No Symptoms Reported Musculoskeletal: reports: Back Pain (Inertmittent throbbing low back pain. States currently "5". Increases w/ bending. Improves w/ sitting.) Integumentary: reports: Rash ((R) wrist x 4 weeks w/ intermittent itch.) Neuro: reports: No Symptoms reported Endocrine: reports: No Symptoms Reported Hematology: reports: No Symptoms Reported Psychiatric: reports: Orientated x3, Agitated, Anxious Patient History - Patient Medical History Hx Anemia: No Hx Asthma: Yes Hx Chronic Obstructive Pulmonary Disease (COPD): No Hx Cancer: No Hx Cardiac Disorders: No Hx Congestive Heart Failure: No Hx Hypertension: Yes Hx Hypercholesterolemia: No Hx Pacemaker: No HX Cerebrovascular Accident: No Hx Seizures: No Hx Dementia: No Hx Diabetes: No Hx Gastrointestinal Disorders: No Hx Liver Disease: No Hx Genitourinary Disorders: No Hx Sexually Transmitted Disorders: No Hx Renal Disease (ESRD): No Hx Thyroid Disease: Yes (ON SYNTHROID 150 MCG DAILY) Hx Human Immunodeficiency Virus (HIV): No (NEGATIVE IN 08/08) Hx Hepatitis C: No Hx Depression: No Hx Suicide Attempt: No Hx Bipolar Disorder: No Hx Schizophrenia: No - Patient Surgical History Past Surgical History: No Hx Neurologic Surgery: No Hx Cataract Extraction: No Hx Cardiac Surgery: No Hx Lung Surgery: No Hx Breast Surgery: No Hx Breast Biopsy: No Hx Abdominal Surgery: No Hx Appendectomy: No Hx Cholecystectomy: No Hx Genitourinary Surgery: No Hx Section: No Hx Orthopedic Surgery: No Anesthesia Reaction: No - PPD History Previous Implant?: Yes Documented Results: Negative w/proof Implanted On Prior [facility] Admission?: Yes Date: 11/02/17 Results: 0 mm PPD to be Administered?: Yes - Smoking Cessation Smoking history: Former smoker Have you smoked in the past 12 months: Yes Aproximately how many cigarettes per day: 2 If you are a former smoker, when did you quit?: 07/15/19 Cigars Per Day: 0 Hx Chewing Tobacco Use: No Initiated information on smoking cessation: Yes 'Breaking Loose' booklet given: 07/24/19 - Substance & Tx. History Hx Alcohol Use: Yes Hx Substance Use: Yes Substance Use Type: Alcohol, Cocaine, Heroin Hx Substance Use Treatment: Yes (detox, MMTP) - Substances abused Alcohol Substance route: Oral Frequency: Daily Amount used: 2 PACKS OF BEER/DAY Age of first use: 17 Date of last use: 07/24/19 Cocaine Substance route: Smoking Frequency: Daily Amount used: $20 Age of first use: 29 Date of last use: 07/24/19 Admission Physical Exam BHS - Vital Signs Vital Signs: Vital Signs - 24 hr 07/24/19 17:35 Temperature 97.1 F L Pulse Rate 69 Respiratory 18 Rate Blood Pressure 144/70 - Physical General Appearance: Yes: Thin, Tremorous, Sweating (Increased facial moisture), Anxious HEENTM: Yes: Hearing grossly Normal, Normocephalic, Normal Voice, Pharynx Normal Respiratory: Yes: Lungs Clear (Pulse Ox = 97), Normal Breath Sounds, No Respiratory Distress Neck: Yes: No masses,lesions,Nodules, Supple Breast: Yes: Breast Exam Deferred Cardiology: Yes: Regular Rhythm, Regular Rate, S1, S2 Abdominal: Yes: Non Tender, Flat, Soft, Increased Bowel Sounds Genitourinary: Yes: Within Normal Limits Back: Yes: Normal Inspection Musculoskeletal: Yes: full range of Motion, Gait Steady Extremities: Yes: Normal Capillary Refill, Tremors Neurological: Yes: 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 intact, Fully Oriented, Alert, Motor Strength 5/5 Integumentary: Yes: Normal Color, Warm, Moist (Increased facial moisture), Rash (3 cm and and 10 mm elevated, whitish/reddish elevate, flaky lesions (R) forearm.) Lymphatic: Yes: Within Normal Limits - Diagnostic (1) Hx of positive serological reaction for syphilis Current Visit: Yes Status: Chronic (2) Essential hypertension Current Visit: Yes Status: Chronic (3) Hypothyroidism Current Visit: Yes Status: Chronic (4) Methadone maintenance therapy patient Current Visit: Yes Status: Chronic Comment: on methadone 70 mg, dose pending verification (5) Rash and nonspecific skin eruption Current Visit: Yes Status: Acute (6) History of asthma Current Visit: Yes Status: Chronic Comment: w/ COPD (7) Cocaine dependence Current Visit: Yes Status: Chronic (8) Alcohol dependence with withdrawal Current Visit: Yes Status: Acute Qualifiers: Complication of substance-induced condition: uncomplicated Qualified Code(s ): F10.230 - Alcohol dependence with withdrawal, uncomplicated Cleared for Admission S - Detox or Rehab [facility] Level of Care: Medically Managed Detox Regimen/Protocol: Librium Claeared for Rehab Admission: No Breathalyzer - Breathalyzer Breathalyzer: 0.060 Urine Drug Screen - Test Device Lot number: [id number] Expiration date: 02/18/21 - Control Is test valid?: Yes - Results Drug screen NEGATIVE: No Urine drug screen results: ELVA-Cocaine, MTD-Methadone Inpatient Rehab Admission - Rehab Decision to Admit Inpatient rehab admission?: No
[2019-07-24] MEDS ORDERED: METHOCARBAMOL 500 MG TABLET PO PRN (19:52)
[2019-07-24] MEDS ORDERED: chlordiazePOXIDE HCL 10 MG CAPSULE PO PRN (19:52)
[2019-07-24] MEDS ORDERED: ACETAMINOPHEN 325 MG TABLET (FP) PO PRN ×2 (19:52)
[2019-07-24] MEDS ORDERED: NICOTINE POLACRILEX 2 MG GUM BUC PRN (19:52)
[2019-07-24] MEDS ORDERED: BISMUTH SUBSALICYLATE 524 MG/30 ML UD PO PRN (19:52)
[2019-07-24] MEDS ORDERED: IBUPROFEN 400 MG TABLET (FP) PO PRN (19:52)
[2019-07-24] MEDS ORDERED: MENTHOL/PHENOL 1 EACH UD MM PRN (19:52)
[2019-07-24] MEDS ORDERED: MAG HYDROX/AL HYDROX/SIMETH 30 ML UNIT-DOSE CUP PO PRN (19:52)
[2019-07-24] MEDS ORDERED: MAGNESIUM HYDROX 2400MG/30ML ORAL SUSPENSION 30 ML CUP PO PRN (19:52)
[2019-07-24] MEDS ORDERED: MAGNESIUM CITRATE 300 ML BOTTLE PO PRN (19:52)
[2019-07-24] MEDS: chlordiazePOXIDE HCL 25 MG CAPSULE PO SCH (20:41)
[2019-07-24] MEDS: MELATONIN 5 MG TABLETS PO PRN (22:10)
[2019-07-24] MEDS: THIAMINE HCL 100 MG TABLET (FP) PO SCH (22:10)
[2019-07-24] MEDS: TOLNAFTATE 1% CREAM 15 GM TUBE TP SCH (22:14)
[2019-07-24] MEDS ORDERED: chlordiazePOXIDE 5 MG CAPSULE PO PRN ×2 (23:22)
[2019-07-25] MEDS: chlordiazePOXIDE HCL 25 MG CAPSULE PO SCH ×3 (05:55→20:21)
[2019-07-25 09:52] LABS: HEMATOCRIT 41.9 % (35.4-49); HEMOGLOBIN 14.2 GM/dL (11.7-16.9); MCH 32.7 pg (25.7-33.7); MCHC 33.9 g/dl (32.0-35.9); MEAN CELL VOLUME 96.3 fl (80-96); MEAN PLT VOLUME 8.5 fl (7.5-11.1); PLATELET COUNT 255 K/MM3 (134-434); RBC 4.35 M/mm3 (4.00-5.60); RDW 13.7 % (11.9-15.9); WHITE BLOOD COUNT 6.3 K/mm3 (4.0-10.0)
[2019-07-25] MEDS ORDERED: LEVOTHYROXINE NA 150 MCG TABLET PO SCH (10:00)
[2019-07-25 10:05] LABS: ALBUMIN 3.2 g/dl (3.4-5.0); BILIRUBIN,TOTAL 0.4 mg/dL (0.2-1); BLOOD UREA NITROGEN 10.4 mg/dL (7-18); CALCIUM 8.8 mg/dL (8.5-10.1); CREATININE 0.5 mg/dL (0.55-1.3); POTASSIUM 3.7 mmol/L (3.5-5.1); TOT PROT 7.2 g/dl (6.4-8.2)
[2019-07-25] MEDS: amLODIPine BESYLATE 5 MG TABLET (FP) PO SCH (10:18)
[2019-07-25] MEDS: PRENATAL VITAMINS W/ FOLIC ACID TABLET (FP) PO SCH (10:18)
[2019-07-25] MEDS: LISINOPRIL 10 MG TABLET (FP) PO SCH (10:18)
[2019-07-25] MEDS: TOLNAFTATE 1% CREAM 15 GM TUBE TP SCH ×2 (10:19→22:25)
--- NOTE | 2019-07-25 10:48 | PN ---
S CIWA - CIWA Score Nausea/Vomitin-Mild Nausea/No Vomiting Muscle Tremors: 3 Anxiety: 2 Agitation: 2 Paroxysmal Sweats: 2 Orientation: 0-Oriented Tacttile Disturbances: 0-None Auditory Disturbances: 0-None Visual Disturbances: 0-None Headache: 1-Very Mild CIWA-Ar Total Score: 11 S Progress Note (SOAP) Subjective: day #2 of alcohol detox O: Vital Signs - 24 hr 07/24/19 07/24/19 07/25/19 17:35 21:38 00:30 Temperature 97.1 F L 97.5 F L Pulse Rate 69 78 Respiratory 18 18 18 Rate Blood Pressure 144/70 145/84 07/25/19 07/25/19 07/25/19 03:36 06:43 09:52 Temperature 97.5 F L 97.9 F Pulse Rate 77 63 Respiratory 18 16 16 Rate Blood Pressure 157/78 131/89 Laboratory Tests 07/25/19 07/25/19 07:20 07:20 WBC 6.3 RBC 4.35 Hgb 14.2 Hct 41.9 MCV 96.3 H MCH 32.7 MCHC 33.9 RDW 13.7 Plt Count 255 MPV 8.5 Sodium 136 Potassium 3.7 Chloride 100 Carbon Dioxide 30 Anion Gap 6 L BUN 10.4 Creatinine 0.5 L Est GFR (CKD-EPI)AfAm 136.51 Est GFR (CKD-EPI)NonAf 117.79 Random Glucose 123 H Calcium 8.8 Total Bilirubin 0.4 AST 32 ALT 36 Alkaline Phosphatase 95 Total Protein 7.2 Albumin 3.2 L a/p: AUD, cocaine use continue alcohol detox
[2019-07-25] MEDS ORDERED: METHADONE HCL 10 MG TABLET PO SCH (11:30)
[2019-07-25] MEDS ORDERED: METHADONE HCL 40 MG DISPERSABLE TABLET ONE (12:12)
[2019-07-25] MEDS ORDERED: METHADONE HCL 10 MG TABLET ONE (12:12)
[2019-07-25] MEDS: METHADONE 40 MG, METHADONE 30 MG PO SCH (12:19)
[2019-07-25] MEDS: LEVOTHYROXINE NA 150 MCG TABLET PO SCH (12:20)
[2019-07-25 19:54] LABS: URINE APPEARANCE CLEAR; URINE BILIRUBIN NEGATIVE (NEGATIVE); URINE COLOR YELLOW; URINE GLUCOSE (UA) NEGATIVE (NEGATIVE); URINE KETONE NEGATIVE (NEGATIVE); URINE LEUK ESTERASE NEGATIVE (NEGATIVE); URINE NITRITE NEGATIVE (NEGATIVE); URINE PROTEIN NEGATIVE (NEGATIVE); URINE UROBILINOGEN 0.2 mg/dL (0.2-1.0)
[2019-07-25] MEDS: MELATONIN 5 MG TABLETS PO PRN (22:25)
[2019-07-25] MEDS: THIAMINE HCL 100 MG TABLET (FP) PO SCH (22:25)
--- NOTE | 2019-07-25 23:25 | EKG ---
Test Reason : Blood Pressure : / mmHG Vent. Rate : 077 BPM Atrial Rate : 077 BPM P-R Int : 134 ms QRS Dur : 086 ms QT Int : 376 ms P-R-T Axes : -26 066 067 degrees QTc Int : 425 ms NORMAL SINUS RHYTHM NORMAL ECG WHEN COMPARED WITH ECG OF 31-OCT-2017 20:52, T WAVE VARIATION Confirmed by SANDRA KUO MD ([id number]) on 07/25/2019 11:25:00 PM Referred By: Scottie Bowers Confirmed By:SANDRA KUO MD
[2019-07-26] MEDS ORDERED: METHADONE HCL 10 MG TABLET ONE (05:00)
[2019-07-26] MEDS ORDERED: METHADONE HCL 40 MG DISPERSABLE TABLET ONE (05:01)
[2019-07-26] MEDS: chlordiazePOXIDE 5 MG CAPSULE PO SCH ×3 (05:53→22:04)
[2019-07-26] MEDS: METHADONE 40 MG, METHADONE 30 MG PO SCH (05:54)
[2019-07-26] MEDS: LEVOTHYROXINE NA 150 MCG TABLET PO SCH (06:29)
[2019-07-26] MEDS: PRENATAL VITAMINS W/ FOLIC ACID TABLET (FP) PO SCH (10:09)
[2019-07-26] MEDS: LISINOPRIL 10 MG TABLET (FP) PO SCH (10:09)
[2019-07-26] MEDS: TOLNAFTATE 1% CREAM 15 GM TUBE TP SCH ×2 (10:09→22:04)
[2019-07-26] MEDS: amLODIPine BESYLATE 5 MG TABLET (FP) PO SCH (10:09)
--- NOTE | 2019-07-26 12:34 | PN ---
[facility] CIWA - CIWA Score Nausea/Vomitin-Mild Nausea/No Vomiting Muscle Tremors: 2 Anxiety: 2 Agitation: 2 Paroxysmal Sweats: 2 Orientation: 0-Oriented Tacttile Disturbances: 0-None Auditory Disturbances: 0-None Visual Disturbances: 0-None Headache: 0-None Present CIWA-Ar Total Score: 9 S Progress Note (SOAP) Subjective: Feels ok, medication working ok Objective: 07/26/19 12:32 Last Vital Signs Temp Pulse Resp BP Pulse Ox 98.1 F 63 16 119/80 07/26/19 08:52 07/26/19 08:52 07/26/19 08:52 07/26/19 08:52 Laboratory Tests 07/25/19 07/25/19 07/25/19 07:20 07:20 16:05 WBC 6.3 RBC 4.35 Hgb 14.2 Hct 41.9 MCV 96.3 H MCH 32.7 MCHC 33.9 RDW 13.7 Plt Count 255 MPV 8.5 Sodium 136 Potassium 3.7 Chloride 100 Carbon Dioxide 30 Anion Gap 6 L BUN 10.4 Creatinine 0.5 L Est GFR (CKD-EPI)AfAm 136.51 Est GFR (CKD-EPI)NonAf 117.79 Random Glucose 123 H Calcium 8.8 Total Bilirubin 0.4 AST 32 ALT 36 Alkaline Phosphatase 95 Total Protein 7.2 Albumin 3.2 L Urine Color Yellow Urine Appearance Clear Urine pH 8.0 Ur Specific [place] 1.006 L Urine Protein Negative Urine Glucose (UA) Negative Urine Ketones Negative Urine Blood Negative Urine Nitrite Negative Urine Bilirubin Negative Urine Urobilinogen 0.2 Ur Leukocyte Esterase Negative Labs reviewed: serum glucose 123mg/dl (high) Assessment: 07/26/19 12:33 Withdrawal sxs Noted with hyperglycemia Plan: Continue detox Encouraged PO water intak Hyperglycemia: denies DM, repeat fasting glucose, check A1c
[2019-07-26] MEDS: THIAMINE HCL 100 MG TABLET (FP) PO SCH (22:04)
[2019-07-26] MEDS: MELATONIN 5 MG TABLETS PO PRN (22:07)
[2019-07-27] MEDS ORDERED: chlordiazePOXIDE HCL 10 MG CAPSULE PO PRN
[2019-07-27] MEDS ORDERED: METHADONE HCL 10 MG TABLET ONE (04:55)
[2019-07-27] MEDS ORDERED: METHADONE HCL 40 MG DISPERSABLE TABLET ONE (04:56)
[2019-07-27] MEDS: chlordiazePOXIDE HCL 10 MG CAPSULE PO SCH ×3 (06:17→22:04)
[2019-07-27] MEDS: METHADONE 40 MG, METHADONE 30 MG PO SCH (06:17)
--- NOTE | 2019-07-27 09:51 | PN ---
S CIWA - CIWA Score Nausea/Vomitin-Mild Nausea/No Vomiting Muscle Tremors: 1-None Visible, but [place] Anxiety: 1-Mildly Anxious Agitation: 2 Paroxysmal Sweats: No Perspiration Orientation: 0-Oriented Tacttile Disturbances: 1-Very Mild Itch/Numbness Auditory Disturbances: 0-None Visual Disturbances: 0-None Headache: 1-Very Mild CIWA-Ar Total Score: 7 BHS Progress Note (SOAP) Subjective: alert,irritable,anxious,interrupted sleep,pain in the body Objective: 07/27/19 09:50 Vital Signs Temperature 97.9 F 07/27/19 09:14 Pulse Rate 67 07/27/19 09:14 Respiratory Rate 16 07/27/19 09:14 Blood Pressure 112/74 07/27/19 09:14 O2 Sat by Pulse Oximetry (%) Assessment: 07/27/19 09:50 withdrawal symptom Plan: continue detox,initial glucoe 123,advise diet modification,bgm bid,possible discharge in am
[2019-07-27] MEDS: amLODIPine BESYLATE 5 MG TABLET (FP) PO SCH (11:00)
[2019-07-27] MEDS: TOLNAFTATE 1% CREAM 15 GM TUBE TP SCH ×2 (11:00→22:04)
[2019-07-27] MEDS: PRENATAL VITAMINS W/ FOLIC ACID TABLET (FP) PO SCH (11:00)
[2019-07-27] MEDS: LISINOPRIL 10 MG TABLET (FP) PO SCH (11:00)
[2019-07-27] MEDS: LEVOTHYROXINE 50 MCG, LEVOTHYROXINE 100 MCG PO SCH (11:03)
[2019-07-27] MEDS: THIAMINE HCL 100 MG TABLET (FP) PO SCH (22:04)
[2019-07-27] MEDS: MELATONIN 5 MG TABLETS PO PRN (23:51)
[2019-07-28] MEDS ORDERED: METHADONE HCL 40 MG DISPERSABLE TABLET ONE (03:05)
[2019-07-28] MEDS ORDERED: METHADONE HCL 10 MG TABLET ONE (03:05)
[2019-07-28] MEDS ORDERED: chlordiazePOXIDE HCL 10 MG CAPSULE PO ONE (05:00)
[2019-07-28] MEDS: METHADONE 40 MG, METHADONE 30 MG PO SCH (05:46)
[2019-07-28] MEDS: LEVOTHYROXINE 50 MCG, LEVOTHYROXINE 100 MCG PO SCH (06:14)
--- NOTE | 2019-07-28 09:27 | DS ---
[facility] Detox Discharge Summary Admission Date: 07/24/19 Discharge Date: 07/28/19 - History Present History: Alcohol Dependence, Cocaine Dependence, MMTP - Physical Exam Results Vital Signs: Vital Signs Temperature 97.9 F 07/28/19 06:17 Pulse Rate 62 07/28/19 06:17 Respiratory Rate 18 07/28/19 06:17 Blood Pressure 130/79 07/28/19 06:17 O2 Sat by Pulse Oximetry (%) Pertinent Admission Physical Exam Findings: Vital Signs Temperature 97.9 F 07/28/19 06:17 Pulse Rate 62 07/28/19 06:17 Respiratory Rate 18 07/28/19 06:17 Blood Pressure 130/79 07/28/19 06:17 O2 Sat by Pulse Oximetry (%) Laboratory Tests 07/25/19 07/25/19 07/25/19 07:20 07:20 16:05 WBC 6.3 RBC 4.35 Hgb 14.2 Hct 41.9 MCV 96.3 H MCH 32.7 MCHC 33.9 RDW 13.7 Plt Count 255 MPV 8.5 Sodium 136 Potassium 3.7 Chloride 100 Carbon Dioxide 30 Anion Gap 6 L BUN 10.4 Creatinine 0.5 L Est GFR (CKD-EPI)AfAm 136.51 Est GFR (CKD-EPI)NonAf 117.79 POC Glucometer Random Glucose 123 H Calcium 8.8 Total Bilirubin 0.4 AST 32 ALT 36 Alkaline Phosphatase 95 Total Protein 7.2 Albumin 3.2 L Urine Color Yellow Urine Appearance Clear Urine pH 8.0 Ur Specific [place] 1.006 L Urine Protein Negative Urine Glucose (UA) Negative Urine Ketones Negative Urine Blood Negative Urine Nitrite Negative Urine Bilirubin Negative Urine Urobilinogen 0.2 Ur Leukocyte Esterase Negative 07/27/19 07/28/19 16:31 05:45 WBC RBC Hgb Hct MCV MCH MCHC RDW Plt Count MPV Sodium Potassium Chloride Carbon Dioxide Anion Gap BUN Creatinine Est GFR (CKD-EPI)AfAm Est GFR (CKD-EPI)NonAf POC Glucometer 222 123 Random Glucose Calcium Total Bilirubin AST ALT Alkaline Phosphatase Total Protein Albumin Urine Color Urine Appearance Urine pH Ur Specific [place] Urine Protein Urine Glucose (UA) Urine Ketones Urine Blood Urine Nitrite Urine Bilirubin Urine Urobilinogen Ur Leukocyte Esterase aaox3 ambulating no acute distress - Treatment Hospital Course: Detox Protocol Followed, Detoxed Safely, Responded well, Discharged Condition Good, Rehab Referral Accepted Patient has Accepted a Rehab Referral to: [facility] - Medication Discharge Medications: Ambulatory Orders Levothyroxine [Synthroid -] 150 mcg PO DAILY #30 tablet 03/21/19 Amlodipine Besylate 5 mg PO DAILY 07/24/19 Lisinopril 10 mg PO DAILY 07/24/19 Thiamine HCl [Vitamin B1] 100 mg PO DAILY 07/24/19 - Diagnosis (1) Alcohol dependence with withdrawal Current Visit: Yes Status: Chronic Qualifiers: Complication of substance-induced condition: uncomplicated Qualified Code(s ): F10.230 - Alcohol dependence with withdrawal, uncomplicated (2) Rash and nonspecific skin eruption Current Visit: Yes Status: Acute (3) Cocaine dependence Current Visit: Yes Status: Chronic (4) Essential hypertension Current Visit: Yes Status: Chronic (5) History of asthma Current Visit: Yes Status: Chronic (6) Hx of positive serological reaction for syphilis Current Visit: Yes Status: Chronic (7) Hypothyroidism Current Visit: Yes Status: Chronic (8) Methadone maintenance therapy patient Current Visit: Yes Status: Chronic (9) Elevated liver enzymes Current Visit: No Status: Acute (10) Insomnia Current Visit: No Status: Acute Qualifiers: Insomnia type: unspecified Qualified Code(s): G47.00 - Insomnia, unspecified (11) Positive RPR test Current Visit: No Status: Acute (12) Substance induced mood disorder Current Visit: No Status: Acute (13) Substance-induced sleep disorder Current Visit: No Status: Acute (14) Asthma Current Visit: No Status: Chronic (15) Nicotine dependence Current Visit: No Status: Chronic Qualifiers: Nicotine product type: cigarettes Substance use status: uncomplicated Qualified Code(s): F17.210 - Nicotine dependence, cigarettes, uncomplicated (16) Opioid dependence on agonist therapy Current Visit: No Status: Chronic (17) Substance induced mood disorder Current Visit: No Status: Chronic (18) Syphilis contact, treated Current Visit: No Status: Resolved - AMA Did Patient Leave Against Medical Advice: No
[2019-07-28] MEDS: amLODIPine BESYLATE 5 MG TABLET (FP) PO SCH (10:13)
[2019-07-28] MEDS: PRENATAL VITAMINS W/ FOLIC ACID TABLET (FP) PO SCH (10:13)
[2019-07-28] MEDS: LISINOPRIL 10 MG TABLET (FP) PO SCH (10:13)
[2019-07-28] MEDS: TOLNAFTATE 1% CREAM 15 GM TUBE TP SCH (10:14)
[2019-07-28 13:06] VITALS: BP 145/75; PULSE 58; TEMP 97.2
== END 2019-07-28 15:25 | disposition other institution (70) | DRG 773 ==
LOC: YASAS 16:11 → Y6N 19:57
PROVIDERS: ADMIT Allergy & Immunology; ATTEND Allergy & Immunology
PROC: HZ2ZZZZ Detoxification Services for Substance Abuse Treatment (ICD-10-PCS; principal; 2019-07-24)
DX: F10.230 Alcohol dependence with withdrawal, uncomplicated (principal); F11.20 Opioid dependence, uncomplicated; F14.20 Cocaine dependence, uncomplicated; F17.210 Nicotine dependence, cigarettes, uncomplicated; F19.24 Other psychoactive substance dependence with psychoactive substance-induced mood disorder; F19.282 Other psychoactive substance dependence with psychoactive substance-induced sleep disorder; I10 Essential (primary) hypertension; R21 Rash and other nonspecific skin eruption; J45.909 Unspecified asthma, uncomplicated; E03.9 Hypothyroidism, unspecified; R94.5 Abnormal results of liver function studies; G47.00 Insomnia, unspecified; R76.11 Nonspecific reaction to tuberculin skin test without active tuberculosis; R73.9 Hyperglycemia, unspecified; Z87.438 Personal history of other diseases of male genital organs; Z56.0 Unemployment, unspecified
CPT/HCPCS: 36415; 80053; 81003; 82962; 85027; 93005; 93010

== ENCOUNTER 2019-07-28 15:35 | Inpatient (IN) | payer OTHER ==
[2019-07-28] MEDS ORDERED: ACETAMINOPHEN 325 MG TABLET (FP) PO PRN (17:45)
[2019-07-28] MEDS ORDERED: MAG HYDROX/AL HYDROX/SIMETH 30 ML UNIT-DOSE CUP PO PRN (17:45)
[2019-07-28] MEDS ORDERED: MENTHOL/PHENOL 1 EACH UD MM PRN (17:45)
[2019-07-28] MEDS ORDERED: IBUPROFEN 400 MG TABLET (FP) PO PRN (17:45)
[2019-07-28] MEDS ORDERED: MAGNESIUM HYDROX 2400MG/30ML ORAL SUSPENSION 30 ML CUP PO PRN (17:45)
[2019-07-28] MEDS ORDERED: MAGNESIUM CITRATE 300 ML BOTTLE PO PRN (17:45)
[2019-07-28] MEDS ORDERED: LOPERAMIDE HCL 2 MG CAPSULE PO PRN (17:45)
[2019-07-28] MEDS ORDERED: hydrOXYzine PAMOATE 25 MG CAPSULE (FP) PO PRN (17:45)
[2019-07-28] MEDS ORDERED: guaiFENesin 200 MG/10 ML 10 ML UNIT-DOSE CUPS PO PRN (17:45)
[2019-07-28] MEDS ORDERED: P-EPHED 60MG/TRIPROLIDI 2.5MG TABLET PO PRN (17:45)
--- NOTE | 2019-07-28 17:45 | HP ---
BHAVESH MONIQUE Rehab Assess/Revision - Admission History Admitted to Rehab from: [address] - Vital signs Vital Signs: Vital Signs Period Temp Pulse Resp BP Sys/Petty Pulse Ox Last 24 Hr 97.4 F 58 18 100/63 - Findings Detox History & Physical reviewed: Yes Concur with findings: Yes (admittd to detox for alcohol and cocaine use disorders, on MAT) Inpatient Rehab Admission - Rehab Decision to Admit Inpatient rehab admission?: Yes - Initial Determination Are CD services needed?: Yes Free of communicable disease: Yes Not in need of hospitalization: Yes - Rehab Admission Criteria Previous failed treatment: Yes Poor recovery environment: Yes Comorbidities: Yes Lacks judgement: Yes Patient is meeting Inpatient Rehab admission criteria:: Yes (completed detox)
[2019-07-28] MEDS: THIAMINE HCL 100 MG TABLET (FP) PO SCH (22:39)
[2019-07-28] MEDS: MELATONIN 5 MG TABLETS PO PRN (22:39)
[2019-07-29] MEDS ORDERED: METHADONE HCL 40 MG DISPERSABLE TABLET ONE (04:46)
[2019-07-29] MEDS ORDERED: METHADONE HCL 10 MG TABLET ONE (04:46)
[2019-07-29] MEDS ORDERED: METHADONE HCL 10 MG TABLET PO SCH (06:00)
[2019-07-29] MEDS ORDERED: LEVOTHYROXINE NA 100 MCG TABLET (FP) ONE (06:05)
[2019-07-29] MEDS: METHADONE 40 MG, METHADONE 30 MG PO SCH (06:08)
[2019-07-29] MEDS: LEVOTHYROXINE 100 MCG, LEVOTHYROXINE 50 MCG PO SCH (06:08)
[2019-07-29] MEDS ORDERED: LEVOTHYROXINE NA 150 MCG TABLET PO SCH (07:00)
[2019-07-29] MEDS: amLODIPine BESYLATE 5 MG TABLET (FP) PO SCH (11:02)
[2019-07-29] MEDS: PRENATAL VITAMINS W/ FOLIC ACID TABLET (FP) PO SCH (11:02)
[2019-07-29] MEDS: LISINOPRIL 10 MG TABLET (FP) PO SCH (11:02)
[2019-07-29] MEDS: MELATONIN 5 MG TABLETS PO PRN (22:10)
[2019-07-29] MEDS: THIAMINE HCL 100 MG TABLET (FP) PO SCH (22:10)
[2019-07-30] MEDS ORDERED: METHADONE HCL 10 MG TABLET ONE (04:39)
[2019-07-30] MEDS ORDERED: METHADONE HCL 40 MG DISPERSABLE TABLET ONE (04:39)
[2019-07-30] MEDS ORDERED: LEVOTHYROXINE NA 100 MCG TABLET (FP) ONE (04:40)
[2019-07-30] MEDS: LEVOTHYROXINE 100 MCG, LEVOTHYROXINE 50 MCG PO SCH (06:04)
[2019-07-30] MEDS: METHADONE 40 MG, METHADONE 30 MG PO SCH (06:05)
--- NOTE | 2019-07-30 10:39 | PN ---
[facility] Progress Note Note: pt is a 59 y/o male with a hx of HONORIO-alcohol,cocaine and on MMTP admitted to rehab from [address] [place] [address]. PMHx of Asthma, HTN(on meds) and Hypothyroidism(on med ), Chronic LBP. Vital Signs - 24 hr 07/30/19 07/30/19 07/30/19 00:30 03:30 07:08 Temperature 97.6 F Pulse Rate 62 Respiratory 18 18 18 Rate Blood Pressure 115/73 Alert o x 3,denies s/h/i nad oob ambulating with steady gait but walks with forward bending gait at waist. extremities/skin;no edema,skin intact on LE; right wrist area with old dry rash evident on admission to detox-not completely resolved. A/P New rehab pt Skin rash Maintain safety Hytone ointment apply to rash as directed. Lidocaine patch 5% apply as directed.
[2019-07-30] MEDS: amLODIPine BESYLATE 5 MG TABLET (FP) PO SCH (10:47)
[2019-07-30] MEDS: LISINOPRIL 10 MG TABLET (FP) PO SCH (10:47)
[2019-07-30] MEDS: PRENATAL VITAMINS W/ FOLIC ACID TABLET (FP) PO SCH (10:47)
[2019-07-30] MEDS ORDERED: ALBUTEROL SO4 HFA INHALER IH PRN (12:04)
[2019-07-30] MEDS ORDERED: TIOTROPIUM BROMIDE 2.5 MCG (SPIRIVA) RESPIMAT INHALER IH SCH ×3 (12:15→21:45)
[2019-07-30] MEDS: LIDOCAINE 5% TOPICAL PATCH TP SCH (15:12)
[2019-07-30] MEDS: LIDOCAINE PATCH REMOVAL MC SCH (21:59)
[2019-07-30] MEDS: THIAMINE HCL 100 MG TABLET (FP) PO SCH (21:59)
[2019-07-30] MEDS: MELATONIN 5 MG TABLETS PO PRN (22:00)
[2019-07-30] MEDS: HYDROCORTISONE 1% TOPICAL OINT 30 GM TUBE TP SCH (22:28)
[2019-07-30] MEDS: TIOTROPIUM BROMIDE 2.5 MCG (SPIRIVA) RESPIMAT INHALER IH SCH (22:29)
[2019-07-31] MEDS ORDERED: METHADONE HCL 10 MG TABLET ONE (04:16)
[2019-07-31] MEDS ORDERED: METHADONE HCL 40 MG DISPERSABLE TABLET ONE (04:17)
[2019-07-31] MEDS: METHADONE 40 MG, METHADONE 30 MG PO SCH (06:15)
[2019-07-31] MEDS ORDERED: LEVOTHYROXINE NA 100 MCG TABLET (FP) ONE (06:16)
[2019-07-31] MEDS: LEVOTHYROXINE 100 MCG, LEVOTHYROXINE 50 MCG PO SCH (06:16)
[2019-07-31] MEDS: PRENATAL VITAMINS W/ FOLIC ACID TABLET (FP) PO SCH (10:52)
[2019-07-31] MEDS: amLODIPine BESYLATE 5 MG TABLET (FP) PO SCH ×2 (10:52→10:57)
[2019-07-31] MEDS: LIDOCAINE 5% TOPICAL PATCH TP SCH (10:52)
[2019-07-31] MEDS: LISINOPRIL 10 MG TABLET (FP) PO SCH ×2 (10:52→10:59)
[2019-07-31] MEDS: HYDROCORTISONE 1% TOPICAL OINT 30 GM TUBE TP SCH ×2 (10:53→22:11)
[2019-07-31] MEDS: TIOTROPIUM BROMIDE 2.5 MCG (SPIRIVA) RESPIMAT INHALER IH SCH (10:54)
[2019-07-31] MEDS: THIAMINE HCL 100 MG TABLET (FP) PO SCH (22:11)
[2019-07-31] MEDS: MELATONIN 5 MG TABLETS PO PRN (22:11)
[2019-07-31] MEDS: LIDOCAINE PATCH REMOVAL MC SCH (22:11)
[2019-08-01] MEDS ORDERED: METHADONE HCL 10 MG TABLET ONE (05:18)
[2019-08-01] MEDS ORDERED: LEVOTHYROXINE NA 100 MCG TABLET (FP) ONE (05:18)
[2019-08-01] MEDS ORDERED: METHADONE HCL 40 MG DISPERSABLE TABLET ONE (05:18)
[2019-08-01] MEDS ORDERED: LEVOTHYROXINE NA 25 MCG TABLET (FP) ONE (05:19)
[2019-08-01] MEDS: METHADONE 40 MG, METHADONE 30 MG PO SCH (06:35)
[2019-08-01] MEDS: LEVOTHYROXINE 100 MCG, LEVOTHYROXINE 50 MCG PO SCH (06:37)
[2019-08-01] MEDS: amLODIPine BESYLATE 5 MG TABLET (FP) PO SCH (10:31)
[2019-08-01] MEDS: PRENATAL VITAMINS W/ FOLIC ACID TABLET (FP) PO SCH (10:31)
[2019-08-01] MEDS: LIDOCAINE 5% TOPICAL PATCH TP SCH (10:31)
[2019-08-01] MEDS: TIOTROPIUM BROMIDE 2.5 MCG (SPIRIVA) RESPIMAT INHALER IH SCH (10:32)
[2019-08-01] MEDS: HYDROCORTISONE 1% TOPICAL OINT 30 GM TUBE TP SCH ×2 (10:32→22:11)
[2019-08-01] MEDS: LISINOPRIL 10 MG TABLET (FP) PO SCH (10:32)
[2019-08-01] MEDS: THIAMINE HCL 100 MG TABLET (FP) PO SCH (22:11)
[2019-08-01] MEDS: LIDOCAINE PATCH REMOVAL MC SCH (22:11)
[2019-08-01] MEDS: MELATONIN 5 MG TABLETS PO PRN (22:12)
[2019-08-02] MEDS ORDERED: METHADONE HCL 40 MG DISPERSABLE TABLET ONE (04:14)
[2019-08-02] MEDS ORDERED: METHADONE HCL 10 MG TABLET ONE (04:14)
[2019-08-02] MEDS ORDERED: LEVOTHYROXINE NA 25 MCG TABLET (FP) ONE (04:15)
[2019-08-02] MEDS ORDERED: LEVOTHYROXINE NA 100 MCG TABLET (FP) ONE (04:15)
[2019-08-02] MEDS: METHADONE 40 MG, METHADONE 30 MG PO SCH (06:11)
[2019-08-02] MEDS: LEVOTHYROXINE 100 MCG, LEVOTHYROXINE 50 MCG PO SCH (06:12)
[2019-08-02] MEDS: LISINOPRIL 10 MG TABLET (FP) PO SCH (10:45)
[2019-08-02] MEDS: PRENATAL VITAMINS W/ FOLIC ACID TABLET (FP) PO SCH (10:45)
[2019-08-02] MEDS: amLODIPine BESYLATE 5 MG TABLET (FP) PO SCH (10:45)
[2019-08-02] MEDS: HYDROCORTISONE 1% TOPICAL OINT 30 GM TUBE TP SCH ×2 (10:46→22:08)
[2019-08-02] MEDS: TIOTROPIUM BROMIDE 2.5 MCG (SPIRIVA) RESPIMAT INHALER IH SCH (10:47)
[2019-08-02] MEDS: LIDOCAINE 5% TOPICAL PATCH TP SCH (11:01)
[2019-08-02] MEDS: THIAMINE HCL 100 MG TABLET (FP) PO SCH (22:08)
[2019-08-02] MEDS: LIDOCAINE PATCH REMOVAL MC SCH (22:08)
[2019-08-02] MEDS: MELATONIN 5 MG TABLETS PO PRN (22:09)
[2019-08-03] MEDS ORDERED: METHADONE HCL 40 MG DISPERSABLE TABLET ONE (06:03)
[2019-08-03] MEDS ORDERED: METHADONE HCL 10 MG TABLET ONE (06:03)
[2019-08-03] MEDS: METHADONE 40 MG, METHADONE 30 MG PO SCH (06:04)
[2019-08-03] MEDS ORDERED: LEVOTHYROXINE NA 100 MCG TABLET (FP) ONE (07:03)
[2019-08-03] MEDS ORDERED: LEVOTHYROXINE NA 25 MCG TABLET (FP) ONE (07:03)
[2019-08-03] MEDS: LEVOTHYROXINE 100 MCG, LEVOTHYROXINE 50 MCG PO SCH (07:18)
[2019-08-03] MEDS: HYDROCORTISONE 1% TOPICAL OINT 30 GM TUBE TP SCH ×2 (11:56→21:57)
[2019-08-03] MEDS: LIDOCAINE 5% TOPICAL PATCH TP SCH (11:57)
[2019-08-03] MEDS: LISINOPRIL 10 MG TABLET (FP) PO SCH (11:58)
[2019-08-03] MEDS: amLODIPine BESYLATE 5 MG TABLET (FP) PO SCH (11:58)
[2019-08-03] MEDS: TIOTROPIUM BROMIDE 2.5 MCG (SPIRIVA) RESPIMAT INHALER IH SCH (11:58)
[2019-08-03] MEDS: PRENATAL VITAMINS W/ FOLIC ACID TABLET (FP) PO SCH (11:58)
[2019-08-03] MEDS: THIAMINE HCL 100 MG TABLET (FP) PO SCH (21:56)
[2019-08-03] MEDS: MELATONIN 5 MG TABLETS PO PRN (21:56)
[2019-08-03] MEDS: LIDOCAINE PATCH REMOVAL MC SCH (21:57)
[2019-08-04] MEDS ORDERED: METHADONE HCL 10 MG TABLET ONE (05:56)
[2019-08-04] MEDS ORDERED: LEVOTHYROXINE NA 100 MCG TABLET (FP) ONE (05:57)
[2019-08-04] MEDS ORDERED: LEVOTHYROXINE NA 25 MCG TABLET (FP) ONE (05:57)
[2019-08-04] MEDS ORDERED: METHADONE HCL 40 MG DISPERSABLE TABLET ONE (05:57)
[2019-08-04] MEDS: METHADONE 40 MG, METHADONE 30 MG PO SCH (06:11)
[2019-08-04] MEDS: LEVOTHYROXINE 100 MCG, LEVOTHYROXINE 50 MCG PO SCH (06:12)
[2019-08-04] MEDS: amLODIPine BESYLATE 5 MG TABLET (FP) PO SCH (10:54)
[2019-08-04] MEDS: PRENATAL VITAMINS W/ FOLIC ACID TABLET (FP) PO SCH (10:54)
[2019-08-04] MEDS: LIDOCAINE 5% TOPICAL PATCH TP SCH (10:54)
[2019-08-04] MEDS: LISINOPRIL 10 MG TABLET (FP) PO SCH (10:55)
[2019-08-04] MEDS: HYDROCORTISONE 1% TOPICAL OINT 30 GM TUBE TP SCH ×2 (10:55→22:05)
[2019-08-04] MEDS: TIOTROPIUM BROMIDE 2.5 MCG (SPIRIVA) RESPIMAT INHALER IH SCH (10:56)
[2019-08-04] MEDS: THIAMINE HCL 100 MG TABLET (FP) PO SCH (22:05)
[2019-08-04] MEDS: MELATONIN 5 MG TABLETS PO PRN (22:05)
[2019-08-04] MEDS: LIDOCAINE PATCH REMOVAL MC SCH (22:05)
[2019-08-05] MEDS ORDERED: METHADONE HCL 10 MG TABLET PO SCH (06:00)
[2019-08-05] MEDS: METHADONE 40 MG, METHADONE 30 MG PO SCH (06:03)
[2019-08-05] MEDS ORDERED: METHADONE HCL 10 MG TABLET ONE (06:03)
[2019-08-05] MEDS ORDERED: METHADONE HCL 40 MG DISPERSABLE TABLET ONE (06:03)
[2019-08-05] MEDS ORDERED: LEVOTHYROXINE NA 25 MCG TABLET (FP) ONE (06:04)
[2019-08-05] MEDS ORDERED: LEVOTHYROXINE NA 100 MCG TABLET (FP) ONE (06:04)
[2019-08-05] MEDS: LEVOTHYROXINE 100 MCG, LEVOTHYROXINE 50 MCG PO SCH (06:04)
[2019-08-05] MEDS: amLODIPine BESYLATE 5 MG TABLET (FP) PO SCH (11:26)
[2019-08-05] MEDS: PRENATAL VITAMINS W/ FOLIC ACID TABLET (FP) PO SCH (11:26)
[2019-08-05] MEDS: HYDROCORTISONE 1% TOPICAL OINT 30 GM TUBE TP SCH ×2 (11:27→22:04)
[2019-08-05] MEDS: LISINOPRIL 10 MG TABLET (FP) PO SCH (11:27)
[2019-08-05] MEDS: LIDOCAINE 5% TOPICAL PATCH TP SCH (11:27)
[2019-08-05] MEDS: TIOTROPIUM BROMIDE 2.5 MCG (SPIRIVA) RESPIMAT INHALER IH SCH (11:28)
[2019-08-05] MEDS: LIDOCAINE PATCH REMOVAL MC SCH (22:04)
[2019-08-05] MEDS: MELATONIN 5 MG TABLETS PO PRN (22:05)
[2019-08-05] MEDS: THIAMINE HCL 100 MG TABLET (FP) PO SCH (22:05)
[2019-08-06] MEDS ORDERED: METHADONE HCL 40 MG DISPERSABLE TABLET ONE (06:30)
[2019-08-06] MEDS ORDERED: METHADONE HCL 10 MG TABLET ONE (06:30)
[2019-08-06] MEDS ORDERED: LEVOTHYROXINE NA 100 MCG TABLET (FP) ONE (06:30)
[2019-08-06] MEDS ORDERED: LEVOTHYROXINE NA 25 MCG TABLET (FP) ONE (06:31)
[2019-08-06] MEDS: METHADONE 40 MG, METHADONE 30 MG PO SCH (06:32)
[2019-08-06] MEDS: LEVOTHYROXINE 100 MCG, LEVOTHYROXINE 50 MCG PO SCH (06:33)
[2019-08-06] MEDS: LIDOCAINE 5% TOPICAL PATCH TP SCH (10:21)
[2019-08-06] MEDS: PRENATAL VITAMINS W/ FOLIC ACID TABLET (FP) PO SCH (10:22)
[2019-08-06] MEDS: TIOTROPIUM BROMIDE 2.5 MCG (SPIRIVA) RESPIMAT INHALER IH SCH (10:22)
[2019-08-06] MEDS: HYDROCORTISONE 1% TOPICAL OINT 30 GM TUBE TP SCH ×2 (10:22→21:54)
[2019-08-06] MEDS: LISINOPRIL 10 MG TABLET (FP) PO SCH (10:22)
[2019-08-06] MEDS: amLODIPine BESYLATE 5 MG TABLET (FP) PO SCH (10:22)
[2019-08-06] MEDS: LIDOCAINE PATCH REMOVAL MC SCH (21:54)
[2019-08-06] MEDS: THIAMINE HCL 100 MG TABLET (FP) PO SCH (21:54)
[2019-08-06] MEDS: MELATONIN 5 MG TABLETS PO PRN (21:54)
[2019-08-07] MEDS ORDERED: METHADONE HCL 10 MG TABLET ONE (06:03)
[2019-08-07] MEDS ORDERED: METHADONE HCL 40 MG DISPERSABLE TABLET ONE (06:03)
[2019-08-07] MEDS ORDERED: LEVOTHYROXINE NA 100 MCG TABLET (FP) ONE (06:04)
[2019-08-07] MEDS ORDERED: LEVOTHYROXINE NA 25 MCG TABLET (FP) ONE (06:04)
[2019-08-07] MEDS: METHADONE 40 MG, METHADONE 30 MG PO SCH (06:04)
[2019-08-07] MEDS: LEVOTHYROXINE 100 MCG, LEVOTHYROXINE 50 MCG PO SCH (06:05)
[2019-08-07] MEDS: LISINOPRIL 10 MG TABLET (FP) PO SCH (09:10)
[2019-08-07] MEDS: PRENATAL VITAMINS W/ FOLIC ACID TABLET (FP) PO SCH (09:10)
[2019-08-07] MEDS: amLODIPine BESYLATE 5 MG TABLET (FP) PO SCH (09:11)
[2019-08-07] MEDS: LIDOCAINE 5% TOPICAL PATCH TP SCH (09:13)
[2019-08-07] MEDS: TIOTROPIUM BROMIDE 2.5 MCG (SPIRIVA) RESPIMAT INHALER IH SCH (09:14)
[2019-08-07] MEDS: HYDROCORTISONE 1% TOPICAL OINT 30 GM TUBE TP SCH ×2 (09:14→21:44)
[2019-08-07] MEDS: THIAMINE HCL 100 MG TABLET (FP) PO SCH (21:44)
[2019-08-07] MEDS: MELATONIN 5 MG TABLETS PO PRN (21:44)
[2019-08-07] MEDS: LIDOCAINE PATCH REMOVAL MC SCH (21:44)
[2019-08-08] MEDS ORDERED: METHADONE HCL 10 MG TABLET ONE (04:15)
[2019-08-08] MEDS ORDERED: METHADONE HCL 40 MG DISPERSABLE TABLET ONE (04:15)
[2019-08-08] MEDS ORDERED: LEVOTHYROXINE NA 25 MCG TABLET (FP) ONE (04:16)
[2019-08-08] MEDS ORDERED: LEVOTHYROXINE NA 100 MCG TABLET (FP) ONE (04:16)
[2019-08-08] MEDS: METHADONE 40 MG, METHADONE 30 MG PO SCH (06:31)
[2019-08-08] MEDS: LEVOTHYROXINE 100 MCG, LEVOTHYROXINE 50 MCG PO SCH (06:32)
[2019-08-08] MEDS: HYDROCORTISONE 1% TOPICAL OINT 30 GM TUBE TP SCH ×2 (10:38→21:45)
[2019-08-08] MEDS: TIOTROPIUM BROMIDE 2.5 MCG (SPIRIVA) RESPIMAT INHALER IH SCH (10:38)
[2019-08-08] MEDS: PRENATAL VITAMINS W/ FOLIC ACID TABLET (FP) PO SCH (10:38)
[2019-08-08] MEDS: amLODIPine BESYLATE 5 MG TABLET (FP) PO SCH (10:38)
[2019-08-08] MEDS: LISINOPRIL 10 MG TABLET (FP) PO SCH (10:38)
[2019-08-08] MEDS: LIDOCAINE 5% TOPICAL PATCH TP SCH (10:39)
[2019-08-08] MEDS: MELATONIN 5 MG TABLETS PO PRN (21:46)
[2019-08-08] MEDS: LIDOCAINE PATCH REMOVAL MC SCH (21:46)
[2019-08-08] MEDS: THIAMINE HCL 100 MG TABLET (FP) PO SCH (21:46)
[2019-08-09] MEDS ORDERED: METHADONE HCL 40 MG DISPERSABLE TABLET ONE (04:23)
[2019-08-09] MEDS ORDERED: LEVOTHYROXINE NA 100 MCG TABLET (FP) ONE (04:23)
[2019-08-09] MEDS ORDERED: METHADONE HCL 10 MG TABLET ONE (04:23)
[2019-08-09] MEDS ORDERED: LEVOTHYROXINE NA 25 MCG TABLET (FP) ONE (04:24)
[2019-08-09] MEDS: METHADONE 40 MG, METHADONE 30 MG PO SCH (06:05)
[2019-08-09] MEDS: LEVOTHYROXINE 100 MCG, LEVOTHYROXINE 50 MCG PO SCH (06:05)
[2019-08-09] MEDS: HYDROCORTISONE 1% TOPICAL OINT 30 GM TUBE TP SCH ×2 (10:31→22:12)
[2019-08-09] MEDS: PRENATAL VITAMINS W/ FOLIC ACID TABLET (FP) PO SCH (10:31)
[2019-08-09] MEDS: amLODIPine BESYLATE 5 MG TABLET (FP) PO SCH (10:31)
[2019-08-09] MEDS: LISINOPRIL 10 MG TABLET (FP) PO SCH (10:31)
[2019-08-09] MEDS: TIOTROPIUM BROMIDE 2.5 MCG (SPIRIVA) RESPIMAT INHALER IH SCH (10:32)
[2019-08-09] MEDS: LIDOCAINE 5% TOPICAL PATCH TP SCH (10:32)
[2019-08-09] MEDS: MELATONIN 5 MG TABLETS PO PRN (22:12)
[2019-08-09] MEDS: THIAMINE HCL 100 MG TABLET (FP) PO SCH (22:12)
[2019-08-09] MEDS: LIDOCAINE PATCH REMOVAL MC SCH (22:12)
[2019-08-10] MEDS ORDERED: METHADONE HCL 40 MG DISPERSABLE TABLET ONE (06:00)
[2019-08-10] MEDS ORDERED: METHADONE HCL 10 MG TABLET ONE (06:00)
[2019-08-10] MEDS ORDERED: LEVOTHYROXINE NA 100 MCG TABLET (FP) ONE (06:01)
[2019-08-10] MEDS: METHADONE 40 MG, METHADONE 30 MG PO SCH (06:11)
[2019-08-10] MEDS ORDERED: LEVOTHYROXINE NA 25 MCG TABLET (FP) ONE (07:09)
[2019-08-10] MEDS: LEVOTHYROXINE 100 MCG, LEVOTHYROXINE 50 MCG PO SCH (07:22)
[2019-08-10] MEDS: TIOTROPIUM BROMIDE 2.5 MCG (SPIRIVA) RESPIMAT INHALER IH SCH (10:42)
[2019-08-10] MEDS: HYDROCORTISONE 1% TOPICAL OINT 30 GM TUBE TP SCH ×2 (10:42→21:25)
[2019-08-10] MEDS: PRENATAL VITAMINS W/ FOLIC ACID TABLET (FP) PO SCH (10:42)
[2019-08-10] MEDS: LISINOPRIL 10 MG TABLET (FP) PO SCH (10:42)
[2019-08-10] MEDS: LIDOCAINE 5% TOPICAL PATCH TP SCH (10:42)
[2019-08-10] MEDS: amLODIPine BESYLATE 5 MG TABLET (FP) PO SCH (11:13)
--- NOTE | 2019-08-10 15:29 | DS ---
[facility] Rehab Discharge Summary - [facility] Rehab Discharge Summary Admission Date: 07/28/19 Discharge Date: 08/11/19 - History Present History: Alcohol dependence, Cocaine dependence, MMTP Additional Comments: Pt is a 59 y/o male with a hx of a HONORIO-alcohol,cocaine on [facility]-Methadone maintenance program admitted to rehab and scheduled to discharge on 08/11/19. Pertinent Past History: Asthma Hypertension hypothyroidism Sleep Disorder - Discharge Physical Exam Vital Signs: Vital Signs Temperature 97.7 F 08/10/19 07:21 Pulse Rate 94 H 08/10/19 07:21 Respiratory Rate 18 08/10/19 07:21 Blood Pressure 132/76 08/10/19 07:21 O2 Sat by Pulse Oximetry (%) Alert o x 3,denies s/h/i nad oob ambulating with steady gait cardiac:s1 s2,rrr lungs:cta,lavern. abdomen:+bs,soft,flat,nd extremities/skin:no edema,skin intact Pertinent Admission Physical Exam Findings: Laboratory Tests 08/01/19 08/02/19 08/03/19 07:23 06:10 07:53 POC Glucometer 129 139 147 08/04/19 08/05/19 08/06/19 06:09 06:19 06:31 POC Glucometer 105 98 114 08/07/19 08/08/19 08/09/19 06:07 06:34 06:04 POC Glucometer 99 101 97 08/10/19 06:14 POC Glucometer 99 Pt denied DM to follow up with PCP with lab results. - Treatment Discharge Condition: Discharge condition good Hospital Course: Rehabilitated safely and responded well CD aftercare referral accepted. Participated in group and individual sessions while in treatment. - Medication Discharge Medications: Ambulatory Orders Levothyroxine [Synthroid -] 150 mcg PO DAILY #30 tablet 03/21/19 Amlodipine Besylate 5 mg PO DAILY 07/24/19 Lisinopril 10 mg PO DAILY 07/24/19 Thiamine HCl [Vitamin B1 -] 100 mg PO DAILY 07/24/19 Tiotropium [place]att [Spiriva Respimat] 2.5 mcg IH DAILY 07/30/19 - Medication-Assisted Treatment (MAT) Medication-Assisted Treatment (MAT): No - Discharge Instructions Diet, activity, other medical instructions: Diet:XIMENA Activity: oob ad alec Other medical instructions:follow up with Chad brandon for CD aftercare as scheduled. follow up with PCP Dr. Wm Hannah at [address] [facility] [place] for medical management on scheduled visit in . - Diagnosis (1) Alcohol use disorder Current Visit: Yes Status: Chronic (2) Cocaine dependence Current Visit: Yes Status: Chronic (3) Essential hypertension Current Visit: Yes Status: Chronic (4) History of asthma Current Visit: Yes Status: Chronic (5) Hypothyroidism Current Visit: Yes Status: Chronic (6) Methadone maintenance therapy patient Current Visit: Yes Status: Chronic (7) Nicotine dependence Current Visit: Yes Status: Chronic Qualifiers: Nicotine product type: cigarettes Substance use status: uncomplicated Qualified Code(s): F17.210 - Nicotine dependence, cigarettes, uncomplicated - Follow-up Referral Minutes to complete discharge: 20 - AMA Did Patient Leave Against Medical Advice: No Additional Comments: Pt has all his meds at home as well as refills in his [facility] pharmacy on [address], [place] as verified with his pharmacist today. Pt reports he has a scheduled appointment with his primary care in September, at [facility].
[2019-08-10] MEDS: THIAMINE HCL 100 MG TABLET (FP) PO SCH (21:24)
[2019-08-10] MEDS: MELATONIN 5 MG TABLETS PO PRN (21:24)
[2019-08-10] MEDS: LIDOCAINE PATCH REMOVAL MC SCH (21:25)
[2019-08-11] MEDS ORDERED: METHADONE HCL 10 MG TABLET ONE (06:03)
[2019-08-11] MEDS ORDERED: METHADONE HCL 40 MG DISPERSABLE TABLET ONE (06:04)
[2019-08-11] MEDS ORDERED: LEVOTHYROXINE NA 100 MCG TABLET (FP) ONE (06:10)
[2019-08-11] MEDS ORDERED: LEVOTHYROXINE NA 25 MCG TABLET (FP) ONE (06:11)
[2019-08-11] MEDS ORDERED: METHADONE HCL 10 MG TABLET PO ONE (06:13)
[2019-08-11] MEDS: LEVOTHYROXINE 100 MCG, LEVOTHYROXINE 50 MCG PO SCH (06:25)
[2019-08-11] MEDS ORDERED: METHADONE 40 MG, METHADONE 30 MG PO ONE (06:30)
[2019-08-11 08:16] VITALS: BP 132/88; PULSE 82; TEMP 98.4
[2019-08-11] MEDS: amLODIPine BESYLATE 5 MG TABLET (FP) PO SCH (09:19)
[2019-08-11] MEDS: LISINOPRIL 10 MG TABLET (FP) PO SCH (09:19)
[2019-08-11] MEDS: PRENATAL VITAMINS W/ FOLIC ACID TABLET (FP) PO SCH (09:19)
[2019-08-11] MEDS: HYDROCORTISONE 1% TOPICAL OINT 30 GM TUBE TP SCH (09:20)
[2019-08-11] MEDS: TIOTROPIUM BROMIDE 2.5 MCG (SPIRIVA) RESPIMAT INHALER IH SCH (09:20)
[2019-08-11] MEDS: LIDOCAINE 5% TOPICAL PATCH TP SCH (09:21)
--- NOTE | 2019-08-11 10:01 | PN ---
[facility] Progress Note Note: Pt was discharged today as scheduled. Vital Signs - 24 hr 08/11/19 08/11/19 08/11/19 00:30 03:30 06:14 Temperature 98.4 F Pulse Rate 82 Respiratory 18 18 18 Rate Blood Pressure 132/88 Alert o x 3,denies s/h/i nad oob ambulating with steady gait. A/P Medically stable D/C pt today D/W p to follow up with CD aftercare and primary care for medical management as scheduled.
== END 2019-08-11 10:00 | disposition home or self-care (01) | DRG 772 ==
LOC: YASAS 15:35 → Y5N 15:36 → Y3E 07-29 15:57 → Y5N 07-29 15:58
PROVIDERS: ADMIT Neuromusculoskeletal Medicine & OMM; ATTEND Neuromusculoskeletal Medicine & OMM
PROC: HZ42ZZZ Group Counseling for Substance Abuse Treatment, Cognitive-Behavioral (ICD-10-PCS; principal; 2019-07-28)
DX: F10.20 Alcohol dependence, uncomplicated (principal); F14.20 Cocaine dependence, uncomplicated; F11.20 Opioid dependence, uncomplicated; F17.210 Nicotine dependence, cigarettes, uncomplicated; I10 Essential (primary) hypertension; E03.9 Hypothyroidism, unspecified; J45.909 Unspecified asthma, uncomplicated; G47.9 Sleep disorder, unspecified; M54.5 Low back pain; G89.29 Other chronic pain; R21 Rash and other nonspecific skin eruption
CPT/HCPCS: 82962

== ENCOUNTER 2020-01-20 17:58 | Inpatient (IN) | payer OTHER ==
--- NOTE | 2020-01-20 20:13 | HP ---
CIWA Score Nausea/Vomitin Muscle Tremors: 3 Anxiety: 4-Mod. Anxious/Guarded Agitation: 4-Moderately Restless Paroxysmal Sweats: 2 Orientation: 0-Oriented Tacttile Disturbances: 0-None Auditory Disturbances: 0-None Visual Disturbances: 0-None Headache: 0-None Present CIWA-Ar Total Score: 15 - Admission Criteria OASAS Guidelines: Admission for Medically Managed Detox: Requires at least one of the followin. CIWA greater than 12 2. Seizures within the past 24 hours 3. Delirium tremens within the past 24 hours 4. Hallucinations within the past 24 hours 5. Acute intervention needed for co occurring medical disorder 6. Acute intervention needed for co occurring psychiatric disorder 7. Severe withdrawal that cannot be handled at a lower level of care (continued vomiting, continued diarrhea, abnormal vital signs) requiring intravenous medication and/or fluids 8. Admitting History and Physical - Smoking History Smoking history: Former smoker Have you smoked in the past 12 months: Yes Aproximately how many cigarettes per day: 2 If you are a former smoker, when did you quit?: 07/15/19 - Alcohol/Substance Use Hx Alcohol Use: Yes Admission ROS [facility] Chief Complaint: Alcohol withdrawal symptoms Allergies/Adverse Reactions: Allergies Allergy/AdvReac Type Severity Reaction Status Date / Time No Known Allergies Allergy Verified 07/24/19 17:38 History of Present Illness: 59 years old male with a long history of alcohol dependence is seeking admission to detox. His last admission to [facility] was for the period 07/24/2019-08/11/2019 and he reports that he relapsed post detoxification. He has medical history of asthma hypothyroid, hypertension, syphilis (treated) and he reports psych. history of depression. He is on methadone 70mg tablet oral daily with [facility], [place]. Dose is yet to be to confirmed. 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 He is unemployed, lives with a friend and denies any legal issues. Exam Limitations: No Limitations - Ebola screening Have you traveled outside of the country in the last 21 days: No Have you had contact with anyone from an Ebola affected area: No Have you been sick,other than usual withdrawal symptoms: No Do you have a fever: No - Review of Systems Constitutional: Chills, Night Sweats EENT: reports: No Symptoms Reported Respiratory: reports: No Symptoms reported Cardiac: reports: No Symptoms Reported GI: reports: Nausea, Poor Fluid Intake, Abdominal cramping Musculoskeletal: reports: No Symptoms Reported Integumentary: reports: Dryness, Flushing Neuro: reports: Tremors Endocrine: reports: No Symptoms Reported Hematology: reports: No Symptoms Reported Psychiatric: reports: Mood/Affect Appropiate, Orientated x3 Other Systems: Reviewed and Negative Patient History - Patient Medical History Hx Anemia: No Hx Asthma: Yes (Albuterol) Hx Chronic Obstructive Pulmonary Disease (COPD): No Hx Cancer: No Hx Cardiac Disorders: No Hx Congestive Heart Failure: No Hx Hypertension: Yes (Norvasc, Lisinopril) Hx Hypercholesterolemia: No Hx Pacemaker: No HX Cerebrovascular Accident: No Hx Seizures: No Hx Dementia: No Hx Diabetes: No Hx Gastrointestinal Disorders: No Hx Liver Disease: No Hx Genitourinary Disorders: No Hx Sexually Transmitted Disorders: Yes (Syphilis (treated)) Hx Renal Disease (ESRD): No Hx Thyroid Disease: Yes (ON SYNTHROID 150 MCG DAILY) Hx Human Immunodeficiency Virus (HIV): No (NEGATIVE 2019) Hx Hepatitis C: No Hx Depression: Yes Hx Suicide Attempt: No (Denies suicidal ideation at this time) Hx Bipolar Disorder: No Hx Schizophrenia: No - Patient Surgical History Past Surgical History: No Anesthesia Reaction: No - PPD History Previous Implant?: Yes Documented Results: Positive w/proof Implanted On Prior [facility] Admission?: Yes Date: 07/26/19 Results: 0 mm PPD to be Administered?: No - Reproductive History Patient is a Female of Child Bearing Age (11 -55 yrs old): No (Male) - Smoking Cessation Smoking history: Former smoker Have you smoked in the past 12 months: No Cigars Per Day: 0 Hx Chewing Tobacco Use: No Initiated information on smoking cessation: No - Substance & Tx. History Hx Alcohol Use: Yes Hx Substance Use: Yes (On MMTP) Substance Use Type: Alcohol, Prescribed (Methadone 70mg tablet oral daily) Hx Substance Use Treatment: Yes ([facility]) Admission Physical Exam BHS - Physical General Appearance: Yes: Moderate Distress, Tremorous HEENTM: Yes: Within Normal Limits Respiratory: Yes: Lungs Clear, Normal Breath Sounds, No Respiratory Distress Neck: Yes: Within Normal Limits Breast: Yes: Breast Exam Deferred Cardiology: Yes: Within Normal Limits Abdominal: Yes: Normal Bowel Sounds, Soft Genitourinary: Yes: Within Normal Limits Back: Yes: Normal Inspection Musculoskeletal: Yes: Within Normal Limits Extremities: Yes: Tremors Neurological: Yes: Within Normal Limits Integumentary: Yes: Warm Lymphatic: Yes: Within Normal Limits - Diagnostic (1) Alcohol dependence with withdrawal Current Visit: Yes Status: Acute Qualifiers: Complication of substance-induced condition: uncomplicated Qualified Code(s): F10.230 - Alcohol dependence with withdrawal, uncomplicated (2) Asthma Current Visit: Yes Status: Chronic (3) Cocaine dependence Current Visit: Yes Status: Chronic (4) Essential hypertension Current Visit: Yes Status: Chronic (5) Hx of positive serological reaction for syphilis Current Visit: Yes Status: Chronic (6) Hypothyroidism Current Visit: Yes Status: Chronic (7) Methadone maintenance therapy patient Current Visit: Yes Status: Chronic Comment: on methadone 70 mg, dose pending verification Cleared for Admission S - Detox or Rehab [facility] Level of Care: Medically Managed Detox Regimen/Protocol: Librium Claeared for Rehab Admission: No Breathalyzer - Breathalyzer Breathalyzer: 0.060 Urine Drug Screen - Test Device Lot number: [id number] Expiration date: 02/18/21 - Control Is test valid?: Yes - Results Drug screen NEGATIVE: No Urine drug screen results: ELVA-Cocaine, MTD-Methadone Inpatient Rehab Admission - Rehab Decision to Admit Inpatient rehab admission?: No
[2020-01-20] MEDS ORDERED: MAG HYDROX/AL HYDROX/SIMETH 30 ML UNIT-DOSE CUP PO PRN (20:23)
[2020-01-20] MEDS ORDERED: ACETAMINOPHEN 325 MG TABLET (FP) PO PRN ×2 (20:23)
[2020-01-20] MEDS ORDERED: MAGNESIUM HYDROX 2400MG/30ML ORAL SUSPENSION 30 ML CUP PO PRN (20:23)
[2020-01-20] MEDS ORDERED: METHOCARBAMOL 500 MG TABLET PO PRN (20:23)
[2020-01-20] MEDS ORDERED: IBUPROFEN 400 MG TABLET (FP) PO PRN (20:23)
[2020-01-20] MEDS ORDERED: chlordiazePOXIDE HCL 25 MG CAPSULE PO PRN (20:23)
[2020-01-20] MEDS ORDERED: MENTHOL/PHENOL 1 EACH UD MM PRN (20:23)
[2020-01-20] MEDS ORDERED: MAGNESIUM CITRATE 300 ML BOTTLE PO PRN (20:23)
[2020-01-20] MEDS ORDERED: BISMUTH SUBSALICYLATE 524 MG/30 ML UD PO PRN (20:23)
[2020-01-20] MEDS ORDERED: ONDANSETRON *ODT* 4 MG TABLET SL ONE (20:23)
[2020-01-20 22:40] VITALS: BMI 22.1
[2020-01-20] MEDS: chlordiazePOXIDE HCL 25 MG CAPSULE PO SCH (22:53)
[2020-01-20] MEDS: MELATONIN 5 MG TABLETS PO SCH (22:53)
[2020-01-20] MEDS: THIAMINE HCL 100 MG TABLET (FP) PO SCH (22:53)
[2020-01-21] MEDS: chlordiazePOXIDE HCL 25 MG CAPSULE PO SCH ×4 (05:50→22:16)
[2020-01-21] MEDS ORDERED: LEVOTHYROXINE NA 150 MCG TABLET PO SCH (07:00)
[2020-01-21] MEDS ORDERED: LEVOTHYROXINE 50 MCG, LEVOTHYROXINE 100 MCG PO SCH ×2 (07:45→09:30)
[2020-01-21] MEDS: amLODIPine BESYLATE 5 MG TABLET (FP) PO SCH (10:39)
[2020-01-21] MEDS: hydrOXYzine PAMOATE 25 MG CAPSULE (FP) PO PRN (10:39)
[2020-01-21] MEDS: LISINOPRIL 10 MG TABLET (FP) PO SCH (10:39)
[2020-01-21] MEDS: LEVOTHYROXINE 50 MCG, LEVOTHYROXINE 100 MCG PO SCH (10:40)
[2020-01-21] MEDS: PRENATAL VITAMINS W/ FOLIC ACID TABLET (FP) PO SCH (10:40)
--- NOTE | 2020-01-21 10:47 | PN ---
S CIWA - CIWA Score Nausea/Vomitin-Mild Nausea/No Vomiting Muscle Tremors: 3 Anxiety: 3 Agitation: 1-Slight > Activity Paroxysmal Sweats: 2 Orientation: 0-Oriented Tacttile Disturbances: 0-None Auditory Disturbances: 0-None Visual Disturbances: 0-None Headache: 0-None Present CIWA-Ar Total Score: 10 S Progress Note (SOAP) Subjective: 59 years old male admitted on 01/20/20 for alcohol withdrawal sx management treating with librium detox regiment ate breakfast feeling tired resting in bed limited conversation with staff encourage hygiene Objective: 01/21/20 10:49 Vital Signs - 24 hr 01/20/20 01/20/20 01/21/20 22:27 22:32 00:28 Temperature 98.0 F 98.0 F Pulse Rate 80 80 Respiratory 18 18 18 Rate Blood Pressure 160/90 160/90 O2 Sat by Pulse 95 Oximetry (%) 01/21/20 01/21/20 01/21/20 03:25 06:34 08:50 Temperature 97.6 F 96.8 F L Pulse Rate 66 85 Respiratory 16 18 18 Rate Blood Pressure 155/90 138/87 O2 Sat by Pulse 97 Oximetry (%) hypertension treated with amlodipine 5 mg and lisinopril 10 mg po Laboratory Tests 01/21/20 08:30 Sodium 138 Potassium 4.3 Chloride 101 Carbon Dioxide 30 Anion Gap 8 BUN 17.3 Creatinine 0.7 Est GFR (CKD-EPI)AfAm 118.88 Est GFR (CKD-EPI)NonAf 102.57 Random Glucose 104 Calcium 8.7 AST 51 H ALT 48 Albumin 3.3 L lab noted 01/21/20 10:51 Assessment: 01/21/20 10:50 alcohol withdrawal Plan: librium regiment
[2020-01-21 10:49] LABS: ALBUMIN 3.3 g/dl (3.4-5.0); BLOOD UREA NITROGEN 17.3 mg/dL (7-18); CALCIUM 8.7 mg/dL (8.5-10.1); CREATININE 0.7 mg/dL (0.55-1.3); HEMATOCRIT 41.3 % (35.4-49); HEMOGLOBIN 13.9 GM/dL (11.7-16.9); MCHC 33.6 g/dl (32.0-35.9); MEAN CELL VOLUME 95.2 fl (80-96); MEAN PLT VOLUME 8.9 fl (7.5-11.1); PLATELET COUNT 224 K/MM3 (134-434); POTASSIUM 4.3 mmol/L (3.5-5.1); RBC 4.33 M/mm3 (4.00-5.60); RDW 14.5 % (11.9-15.9); WHITE BLOOD COUNT 6.5 K/mm3 (4.0-10.0)
[2020-01-21 10:52] LABS: BILIRUBIN,TOTAL 0.6 mg/dL (0.2-1); TOT PROT 7.4 g/dl (6.4-8.2)
--- NOTE | 2020-01-21 14:08 | EKG ---
Test Reason : Blood Pressure : / mmHG Vent. Rate : 073 BPM Atrial Rate : 073 BPM P-R Int : 176 ms QRS Dur : 088 ms QT Int : 388 ms P-R-T Axes : 064 050 062 degrees QTc Int : 427 ms NORMAL SINUS RHYTHM MINIMAL VOLTAGE CRITERIA FOR LVH, MAY BE NORMAL VARIANT BORDERLINE ECG WHEN COMPARED WITH ECG OF 24-JUL-2019 22:10, NO SIGNIFICANT CHANGE WAS FOUND Confirmed by HUNG MONIQUE, JANETH ([id number]) on 01/21/2020 2:08:11 PM Referred By: Confirmed By:JANETH PERSAUD MD
[2020-01-21] MEDS: THIAMINE HCL 100 MG TABLET (FP) PO SCH (22:16)
[2020-01-21] MEDS: MELATONIN 5 MG TABLETS PO SCH (22:16)
[2020-01-22] MEDS ORDERED: LEVOTHYROXINE NA 100 MCG TABLET (FP) ONE (03:39)
[2020-01-22] MEDS ORDERED: LEVOTHYROXINE NA 25 MCG TABLET (FP) ONE (03:39)
[2020-01-22] MEDS: chlordiazePOXIDE HCL 25 MG CAPSULE PO SCH ×4 (05:15→22:04)
[2020-01-22] MEDS: LEVOTHYROXINE 50 MCG, LEVOTHYROXINE 100 MCG PO SCH (06:04)
--- NOTE | 2020-01-22 09:11 | PN ---
[facility] CIWA - CIWA Score Nausea/Vomitin-No Nausea/No Vomiting Muscle Tremors: 1-None Visible, but [place] Anxiety: 1-Mildly Anxious Agitation: 0-Normal Activity Paroxysmal Sweats: No Perspiration Orientation: 1-Uncertain about Date Tacttile Disturbances: 0-None Auditory Disturbances: 0-None Visual Disturbances: 0-None Headache: 0-None Present CIWA-Ar Total Score: 3 BHS Progress Note (SOAP) Subjective: No complaints Objective: 01/22/20 09:10 PE Gnl: WDWN, in no distress, in bed MS: awake, alert Motor: nl coordination Neuro: no tremor Laboratory Results - last 24 hr 01/21/20 01/21/20 01/21/20 08:30 08:30 08:30 WBC 6.5 RBC 4.33 Hgb 13.9 Hct 41.3 MCV 95.2 MCH 32.0 MCHC 33.6 RDW 14.5 Plt Count 224 MPV 8.9 Sodium 138 Potassium 4.3 Chloride 101 Carbon Dioxide 30 Anion Gap 8 BUN 17.3 Creatinine 0.7 Est GFR (CKD-EPI)AfAm 118.88 Est GFR (CKD-EPI)NonAf 102.57 Random Glucose 104 Calcium 8.7 Total Bilirubin 0.6 AST 51 H ALT 48 Alkaline Phosphatase 107 Total Protein 7.4 Albumin 3.3 L Syphilis Serology Reactive A* RPR Titer 01/21/20 08:30 WBC RBC Hgb Hct MCV MCH MCHC RDW Plt Count MPV Sodium Potassium Chloride Carbon Dioxide Anion Gap BUN Creatinine Est GFR (CKD-EPI)AfAm Est GFR (CKD-EPI)NonAf Random Glucose Calcium Total Bilirubin AST ALT Alkaline Phosphatase Total Protein Albumin Syphilis Serology RPR Titer Reactive 1:1 H Home Medication List Medication Instructions Recorded Confirmed Type Amlodipine Besylate 5 mg PO DAILY 07/24/19 01/20/20 History Lisinopril 10 mg PO DAILY 07/24/19 01/20/20 History Thiamine HCl [Vitamin B1 -] 100 mg PO DAILY 07/24/19 01/20/20 History Tiotropium [place] [Spiriva 2.5 mcg IH DAILY 07/30/19 01/20/20 History Respimat] Active Medications Generic Name Dose Route Start Last Admin Trade Name Freq PRN Reason Stop Dose Admin Acetaminophen 650 mg 01/20/20 20:23 Tylenol - PO Q6H PRN PAIN LEVEL 4 - 6 Acetaminophen 650 mg 01/20/20 20:23 Tylenol - PO Q6H PRN FEVER Al Hydroxide/Mg Hydroxide 30 ml 01/20/20 20:23 Mylanta Oral Suspension - PO Q6H PRN DYSPEPSIA Amlodipine Besylate 5 mg 01/21/20 10:00 01/21/20 10:39 Norvasc - PO 5 mg DAILY TRACY Administration Bismuth Subsalicylate 524 mg 01/20/20 20:23 Pepto-Bismol - PO Q1H PRN DIARRHEA Chlordiazepoxide HCl 25 mg 01/22/20 05:00 01/22/20 05:15 Librium - PO 01/22/20 23:01 25 mg [id number] TRACY Administration Chlordiazepoxide HCl 25 mg 01/20/20 20:23 Librium - PO 01/22/20 23:59 Q4H PRN WITHDRAWAL(CONT SUBST) Chlordiazepoxide HCl 10 mg 01/23/20 05:00 Librium - PO 01/23/20 23:01 [id number] TRACY Chlordiazepoxide HCl 10 mg 01/24/20 05:00 Librium - PO 01/24/20 17:01 Q12H TRACY Chlordiazepoxide HCl 10 mg 01/23/20 00:00 Librium - PO 01/24/20 00:00 Q4H PRN WITHDRAWAL(CONT SUBST) Chlordiazepoxide HCl 10 mg 01/25/20 05:00 Librium - PO 01/25/20 05:01 ONCE@0500 ONE Eucalyptus/Menthol/Phenol/Sorbitol 1 each 01/20/20 20:23 Cepastat Lozenge - MM 01/26/20 20:23 Q4H PRN SORE THROAT Hydroxyzine Pamoate 25 mg 01/20/20 20:23 01/21/20 10:39 Vistaril - PO 01/26/20 20:23 25 mg Q4HWA PRN Administration ANXIETY Ibuprofen 400 mg 01/20/20 20:23 Motrin - PO Q6H PRN PAIN LEVEL 1 - 3 Levothyroxine Sodium 50 mcg/ 150 mcg 01/21/20 09:30 01/22/20 06:04 Levothyroxine Sodium 100 mcg PO 150 mcg DAILY@0700 TRACY Administration Lisinopril 10 mg 01/21/20 10:00 01/21/20 10:39 Prinivil PO 10 mg DAILY TRACY Administration Magnesium Citrate 300 ml 01/20/20 20:23 Citroma - PO Q48H PRN CONSTIPATION Magnesium Hydroxide 30 ml 01/20/20 20:23 Milk Of Magnesia - PO PRN PRN CONSTIPATION Melatonin 5 mg 01/20/20 22:00 01/21/20 22:16 Melatonin PO 5 mg HS TRACY Administration Methadone HCl 70 mg 01/22/20 09:15 Dolophine - PO DAILY@0600 TRACY Methocarbamol 500 mg 01/20/20 20:23 Robaxin - PO 01/26/20 20:23 Q6H PRN MUSCLE SPASMS Multivit/Folic Acid/Iron 1 tab 01/21/20 10:00 01/21/20 10:40 Vitamins (Sjr) - PO 1 tab DAILY TRACY Administration Thiamine HCl 100 mg 01/20/20 22:00 01/21/20 22:16 Vitamin B1 - PO 100 mg HS TRACY Administration Vital Signs Temperature 97.1 F L 01/22/20 05:10 Pulse Rate 68 01/22/20 05:10 Respiratory Rate 18 01/22/20 05:10 Blood Pressure 139/89 01/22/20 05:10 O2 Sat by Pulse Oximetry (%) 96 01/22/20 05:10 Assessment: 01/22/20 09:11 1. Alcohol use disorder 2. Opioid use disorder on maintenance therapy 01/22/20 09:12 3. HTN Plan: 1. Librium protocol, projected discharge on 01/24 2. Methadone 70 mg maintenance 3. Amlodipine for BP
[2020-01-22] MEDS ORDERED: METHADONE 40 MG, METHADONE 30 MG PO ONE (09:15)
[2020-01-22] MEDS ORDERED: METHADONE HCL 10 MG TABLET PO SCH (09:15)
[2020-01-22] MEDS ORDERED: METHADONE HCL 40 MG DISPERSABLE TABLET ONE (10:10)
[2020-01-22] MEDS ORDERED: METHADONE HCL 10 MG TABLET ONE (10:10)
[2020-01-22] MEDS: LISINOPRIL 10 MG TABLET (FP) PO SCH (10:13)
[2020-01-22] MEDS: amLODIPine BESYLATE 5 MG TABLET (FP) PO SCH (10:13)
[2020-01-22] MEDS: PRENATAL VITAMINS W/ FOLIC ACID TABLET (FP) PO SCH (10:13)
[2020-01-22] MEDS: MELATONIN 5 MG TABLETS PO SCH (22:04)
[2020-01-22] MEDS: THIAMINE HCL 100 MG TABLET (FP) PO SCH (22:04)
[2020-01-22] MEDS: hydrOXYzine PAMOATE 25 MG CAPSULE (FP) PO PRN (22:05)
[2020-01-23] MEDS ORDERED: chlordiazePOXIDE HCL 10 MG CAPSULE PO PRN
[2020-01-23] MEDS ORDERED: METHADONE HCL 10 MG TABLET ONE (04:13)
[2020-01-23] MEDS ORDERED: METHADONE HCL 40 MG DISPERSABLE TABLET ONE (04:14)
[2020-01-23] MEDS ORDERED: LEVOTHYROXINE NA 100 MCG TABLET (FP) ONE (04:14)
[2020-01-23] MEDS ORDERED: LEVOTHYROXINE NA 25 MCG TABLET (FP) ONE (04:14)
[2020-01-23] MEDS: chlordiazePOXIDE HCL 10 MG CAPSULE PO SCH ×4 (05:40→22:01)
[2020-01-23] MEDS: METHADONE 40 MG, METHADONE 30 MG PO SCH (05:40)
[2020-01-23] MEDS: LEVOTHYROXINE 50 MCG, LEVOTHYROXINE 100 MCG PO SCH (06:16)
[2020-01-23] MEDS: PRENATAL VITAMINS W/ FOLIC ACID TABLET (FP) PO SCH (10:12)
[2020-01-23] MEDS: LISINOPRIL 10 MG TABLET (FP) PO SCH (10:13)
[2020-01-23] MEDS: amLODIPine BESYLATE 5 MG TABLET (FP) PO SCH (10:14)
--- NOTE | 2020-01-23 11:30 | PN ---
S CIWA - CIWA Score Nausea/Vomitin-No Nausea/No Vomiting Muscle Tremors: 2 Anxiety: 2 Agitation: 0-Normal Activity Paroxysmal Sweats: 2 Orientation: 0-Oriented Tacttile Disturbances: 0-None Auditory Disturbances: 0-None Visual Disturbances: 0-None Headache: 0-None Present CIWA-Ar Total Score: 6 BHS Progress Note (SOAP) Subjective: c/o anxiety, shakes, and sweats. Objective: 01/23/20 11:30 Vital Signs 01/23/20 01/23/20 01/23/20 05:43 06:30 09:05 Temperature 96.9 F L 97.3 F L Pulse Rate 74 69 Respiratory 16 18 18 Rate Blood Pressure 133/87 125/82 O2 Sat by Pulse 96 Oximetry (%) Laboratory Last Values WBC 6.5 K/mm3 (4.0-10.0) 01/21/20 08:30 RBC 4.33 M/mm3 (4.00-5.60) 01/21/20 08:30 Hgb 13.9 GM/dL (11.7-16.9) 01/21/20 08:30 Hct 41.3 % (35.4-49) 01/21/20 08:30 MCV 95.2 fl (80-96) 01/21/20 08:30 MCH 32.0 pg (25.7-33.7) 01/21/20 08:30 MCHC 33.6 g/dl (32.0-35.9) 01/21/20 08:30 RDW 14.5 % (11.9-15.9) 01/21/20 08:30 Plt Count 224 K/MM3 (134-434) 01/21/20 08:30 MPV 8.9 fl (7.5-11.1) 01/21/20 08:30 Sodium 138 mmol/L (136-145) 01/21/20 08:30 Potassium 4.3 mmol/L (3.5-5.1) 01/21/20 08:30 Chloride 101 mmol/L (98-107) 01/21/20 08:30 Carbon Dioxide 30 mmol/L (21-32) 01/21/20 08:30 Anion Gap 8 MMOL/L (8-16) 01/21/20 08:30 BUN 17.3 mg/dL (7-18) 01/21/20 08:30 Creatinine 0.7 mg/dL (0.55-1.3) 01/21/20 08:30 Est GFR (CKD-EPI)AfAm 118.88 01/21/20 08:30 Est GFR (CKD-EPI)NonAf 102.57 01/21/20 08:30 Random Glucose 104 mg/dL (74-106) 01/21/20 08:30 Calcium 8.7 mg/dL (8.5-10.1) 01/21/20 08:30 Total Bilirubin 0.6 mg/dL (0.2-1) 01/21/20 08:30 AST 51 U/L (15-37) H 01/21/20 08:30 ALT 48 U/L (13-61) 01/21/20 08:30 Alkaline Phosphatase 107 U/L (45-117) 01/21/20 08:30 Total Protein 7.4 g/dl (6.4-8.2) 01/21/20 08:30 Albumin 3.3 g/dl (3.4-5.0) L 01/21/20 08:30 Syphilis Serology Reactive (NONREACTIVE) A* 01/21/20 08:30 RPR Titer Reactive 1:1 (NONREACTIVE) H 01/21/20 08:30 COVID-19 (SCOTTIE) Not detected (Not Detected) 01/20/20 22:56 Labs noted. Assessment: 01/23/20 11:30 AOX3, in no acute respiratory distress. Full ROM, ambulating in the unit. Withdrawal symptoms. Plan: continue detox.
[2020-01-23] MEDS: MELATONIN 5 MG TABLETS PO SCH (22:00)
[2020-01-23] MEDS: THIAMINE HCL 100 MG TABLET (FP) PO SCH (22:00)
[2020-01-24] MEDS ORDERED: METHADONE HCL 40 MG DISPERSABLE TABLET ONE (04:45)
[2020-01-24] MEDS ORDERED: LEVOTHYROXINE NA 100 MCG TABLET (FP) ONE (04:45)
[2020-01-24] MEDS ORDERED: METHADONE HCL 10 MG TABLET ONE (04:45)
[2020-01-24] MEDS ORDERED: LEVOTHYROXINE NA 25 MCG TABLET (FP) ONE (04:45)
[2020-01-24] MEDS: chlordiazePOXIDE HCL 10 MG CAPSULE PO SCH ×2 (05:36→17:01)
[2020-01-24] MEDS: METHADONE 40 MG, METHADONE 30 MG PO SCH (05:37)
[2020-01-24] MEDS: LEVOTHYROXINE 50 MCG, LEVOTHYROXINE 100 MCG PO SCH (06:24)
[2020-01-24] MEDS: PRENATAL VITAMINS W/ FOLIC ACID TABLET (FP) PO SCH (09:56)
[2020-01-24] MEDS: amLODIPine BESYLATE 5 MG TABLET (FP) PO SCH (09:56)
[2020-01-24] MEDS: LISINOPRIL 10 MG TABLET (FP) PO SCH (09:56)
--- NOTE | 2020-01-24 10:25 | PN ---
S CIWA - CIWA Score Nausea/Vomitin-No Nausea/No Vomiting Muscle Tremors: 1-None Visible, but [place] Anxiety: 1-Mildly Anxious Agitation: 0-Normal Activity Paroxysmal Sweats: No Perspiration Orientation: 0-Oriented Tacttile Disturbances: 0-None Auditory Disturbances: 0-None Visual Disturbances: 1-Very Mild Sensitivity Headache: 0-None Present CIWA-Ar Total Score: 3 BHS Progress Note (SOAP) Subjective: 59 years old male admitted on 01/20/20 for alcohol withdrawal sx management treating with librium detox regiment feeling better today less tremor mild anxiety ate breakfast discussing aftercare with staff prefers to go to [facility] [place] Objective: 01/24/20 10:26 Vital Signs - 24 hr 01/23/20 01/23/20 01/23/20 12:47 17:03 20:39 Temperature 97.1 F L 97.1 F L 97.5 F L Pulse Rate 66 67 84 Respiratory 18 16 18 Rate Blood Pressure 138/86 145/85 105/75 O2 Sat by Pulse 96 95 Oximetry (%) 01/24/20 01/24/20 01/24/20 00:30 03:29 05:34 Temperature 97.3 F L Pulse Rate 74 Respiratory 18 16 18 Rate Blood Pressure 125/82 O2 Sat by Pulse 95 Oximetry (%) 01/24/20 08:54 Temperature 96.9 F L Pulse Rate 73 Respiratory 18 Rate Blood Pressure 104/70 O2 Sat by Pulse Oximetry (%) Laboratory Tests 01/20/20 01/21/20 01/21/20 22:56 08:30 08:30 WBC 6.5 RBC 4.33 Hgb 13.9 Hct 41.3 MCV 95.2 MCH 32.0 MCHC 33.6 RDW 14.5 Plt Count 224 MPV 8.9 Sodium Potassium Chloride Carbon Dioxide Anion Gap BUN Creatinine Est GFR (CKD-EPI)AfAm Est GFR (CKD-EPI)NonAf Random Glucose Calcium Total Bilirubin AST ALT Alkaline Phosphatase Total Protein Albumin Syphilis Serology Reactive A* RPR Titer COVID-19 (SCOTTIE) Not detected 01/21/20 01/21/20 08:30 08:30 WBC RBC Hgb Hct MCV MCH MCHC RDW Plt Count MPV Sodium 138 Potassium 4.3 Chloride 101 Carbon Dioxide 30 Anion Gap 8 BUN 17.3 Creatinine 0.7 Est GFR (CKD-EPI)AfAm 118.88 Est GFR (CKD-EPI)NonAf 102.57 Random Glucose 104 Calcium 8.7 Total Bilirubin 0.6 AST 51 H ALT 48 Alkaline Phosphatase 107 Total Protein 7.4 Albumin 3.3 L Syphilis Serology RPR Titer Reactive 1:1 H COVID-19 (SCOTTIE) 01/24/20 10:28 syphilis reactive 5+ years ago treated with "three shots" 01/24/20 10:29 Assessment: 01/24/20 10:30 alcohol withdrawal Plan: librium regiment syphilis contact treated
[2020-01-24] MEDS: MELATONIN 5 MG TABLETS PO SCH (22:00)
[2020-01-24] MEDS: THIAMINE HCL 100 MG TABLET (FP) PO SCH (22:00)
[2020-01-25] MEDS ORDERED: LEVOTHYROXINE NA 25 MCG TABLET (FP) ONE (04:13)
[2020-01-25] MEDS ORDERED: METHADONE HCL 40 MG DISPERSABLE TABLET ONE (04:13)
[2020-01-25] MEDS ORDERED: METHADONE HCL 10 MG TABLET ONE (04:13)
[2020-01-25] MEDS ORDERED: LEVOTHYROXINE NA 100 MCG TABLET (FP) ONE (04:14)
[2020-01-25] MEDS ORDERED: chlordiazePOXIDE HCL 10 MG CAPSULE PO ONE (05:00)
[2020-01-25] MEDS: METHADONE 40 MG, METHADONE 30 MG PO SCH (05:31)
[2020-01-25] MEDS: LEVOTHYROXINE 50 MCG, LEVOTHYROXINE 100 MCG PO SCH (06:14)
[2020-01-25] MEDS: PRENATAL VITAMINS W/ FOLIC ACID TABLET (FP) PO SCH (09:23)
[2020-01-25] MEDS: LISINOPRIL 10 MG TABLET (FP) PO SCH (09:23)
[2020-01-25] MEDS: amLODIPine BESYLATE 5 MG TABLET (FP) PO SCH (09:23)
--- NOTE | 2020-01-25 11:06 | PN ---
[facility] CIWA - CIWA Score Nausea/Vomitin-No Nausea/No Vomiting Muscle Tremors: 1-None Visible, but [place] Anxiety: 0-No Anxiety, at Ease Agitation: 0-Normal Activity Paroxysmal Sweats: No Perspiration Orientation: 0-Oriented Tacttile Disturbances: 0-None Auditory Disturbances: 0-None Visual Disturbances: 0-None Headache: 0-None Present CIWA-Ar Total Score: 1 BHS Progress Note (SOAP) Subjective: 59 years old male admitted on 01/20/20 for alcohol withdrawal sx management appears slow response to verbal command ammonia serum level as well as hepatitis c virus diagnostic Objective: 01/25/20 11:14 Vital Signs - 24 hr 01/24/20 01/24/20 01/24/20 12:39 16:23 20:29 Temperature 97.3 F L 97.3 F L 97.5 F L Pulse Rate 68 71 75 Respiratory 18 18 18 Rate Blood Pressure 107/69 116/70 140/85 O2 Sat by Pulse 95 96 Oximetry (%) 01/25/20 01/25/20 01/25/20 00:25 03:17 06:12 Temperature 97.5 F L Pulse Rate 74 Respiratory 18 16 18 Rate Blood Pressure 117/71 O2 Sat by Pulse 95 Oximetry (%) 01/25/20 08:52 Temperature 97.2 F L Pulse Rate 68 Respiratory 18 Rate Blood Pressure 121/69 O2 Sat by Pulse Oximetry (%) Laboratory Tests 01/20/20 01/21/20 01/21/20 22:56 08:30 08:30 WBC 6.5 RBC 4.33 Hgb 13.9 Hct 41.3 MCV 95.2 MCH 32.0 MCHC 33.6 RDW 14.5 Plt Count 224 MPV 8.9 Sodium Potassium Chloride Carbon Dioxide Anion Gap BUN Creatinine Est GFR (CKD-EPI)AfAm Est GFR (CKD-EPI)NonAf Random Glucose Calcium Total Bilirubin AST ALT Alkaline Phosphatase Total Protein Albumin Syphilis Serology Reactive A* RPR Titer COVID-19 (SCOTTIE) Not detected 01/21/20 01/21/20 08:30 08:30 WBC RBC Hgb Hct MCV MCH MCHC RDW Plt Count MPV Sodium 138 Potassium 4.3 Chloride 101 Carbon Dioxide 30 Anion Gap 8 BUN 17.3 Creatinine 0.7 Est GFR (CKD-EPI)AfAm 118.88 Est GFR (CKD-EPI)NonAf 102.57 Random Glucose 104 Calcium 8.7 Total Bilirubin 0.6 AST 51 H ALT 48 Alkaline Phosphatase 107 Total Protein 7.4 Albumin 3.3 L Syphilis Serology RPR Titer Reactive 1:1 H COVID-19 (SCOTTIE) lab noted ammonia and hcv Assessment: 01/25/20 11:14 alcohol withdrawal Plan: librium regiment
[2020-01-25] MEDS: MELATONIN 5 MG TABLETS PO SCH (22:53)
[2020-01-25] MEDS: THIAMINE HCL 100 MG TABLET (FP) PO SCH (22:53)
[2020-01-26] MEDS ORDERED: LEVOTHYROXINE NA 25 MCG TABLET (FP) ONE (04:15)
[2020-01-26] MEDS ORDERED: LEVOTHYROXINE NA 100 MCG TABLET (FP) ONE (04:16)
[2020-01-26] MEDS ORDERED: METHADONE HCL 40 MG DISPERSABLE TABLET ONE (05:18)
[2020-01-26] MEDS ORDERED: METHADONE HCL 10 MG TABLET ONE (05:18)
[2020-01-26] MEDS: METHADONE 40 MG, METHADONE 30 MG PO SCH (05:18)
[2020-01-26] MEDS: LEVOTHYROXINE 50 MCG, LEVOTHYROXINE 100 MCG PO SCH (06:12)
[2020-01-26 09:15] VITALS: BP 122/78; PULSE 83; TEMP 97.3
--- NOTE | 2020-01-26 12:27 | DS ---
[facility] Detox Discharge Summary Admission Date: 01/20/20 Discharge Date: 01/26/20 - History Present History: Alcohol Dependence Additional Comments: 59 years old male admitted on 01/20/20 for alcohol withdrawal sx management treating with librium detox regiment mr reynolds has completed the librium regiment and is tolerated well alert oriented x 3 speech clearly coherently ambulating steady gaits cardiac s1s2 regular rate rhythm respiratory clear lung sounds bilaterally on auscultation extremities full range of motion Pertinent Past History: time for discharge 35 minutes mr reynolds agrees returning to methadone program for ammonia serum level reevaluation lactulose initiated - Physical Exam Results Vital Signs: Vital Signs Temperature 97.3 F L 01/26/20 08:47 Pulse Rate 83 01/26/20 08:47 Respiratory Rate 16 01/26/20 08:47 Blood Pressure 122/78 01/26/20 08:47 O2 Sat by Pulse Oximetry (%) 97 01/26/20 06:14 Pertinent Admission Physical Exam Findings: alcohol withdrawal Laboratory Tests 01/20/20 01/21/20 01/21/20 22:56 08:30 08:30 WBC 6.5 RBC 4.33 Hgb 13.9 Hct 41.3 MCV 95.2 MCH 32.0 MCHC 33.6 RDW 14.5 Plt Count 224 MPV 8.9 Sodium Potassium Chloride Carbon Dioxide Anion Gap BUN Creatinine Est GFR (CKD-EPI)AfAm Est GFR (CKD-EPI)NonAf Random Glucose Calcium Total Bilirubin AST ALT Alkaline Phosphatase Ammonia Total Protein Albumin Syphilis Serology Reactive A* RPR Titer COVID-19 (SCOTTIE) Not detected Hep C Ab Diagnostic 01/21/20 01/21/20 01/25/20 08:30 08:30 11:15 WBC RBC Hgb Hct MCV MCH MCHC RDW Plt Count MPV Sodium 138 Potassium 4.3 Chloride 101 Carbon Dioxide 30 Anion Gap 8 BUN 17.3 Creatinine 0.7 Est GFR (CKD-EPI)AfAm 118.88 Est GFR (CKD-EPI)NonAf 102.57 Random Glucose 104 Calcium 8.7 Total Bilirubin 0.6 AST 51 H ALT 48 Alkaline Phosphatase 107 Ammonia 73.20 H Total Protein 7.4 Albumin 3.3 L Syphilis Serology RPR Titer Reactive 1:1 H COVID-19 (SCOTTIE) Hep C Ab Diagnostic 01/25/20 12:00 WBC RBC Hgb Hct MCV MCH MCHC RDW Plt Count MPV Sodium Potassium Chloride Carbon Dioxide Anion Gap BUN Creatinine Est GFR (CKD-EPI)AfAm Est GFR (CKD-EPI)NonAf Random Glucose Calcium Total Bilirubin AST ALT Alkaline Phosphatase Ammonia Total Protein Albumin Syphilis Serology RPR Titer COVID-19 (SCOTTIE) Hep C Ab Diagnostic <0.1 ammonia elevation negative hepatitis c lactulose initiated - Treatment Hospital Course: Detox Protocol Followed, Detoxed Safely, Responded well, Discharged Condition Good, Rehab Referral Accepted Patient has Accepted a Rehab Referral to: methadone program/[facility] - Medication Discharge Medications: Ambulatory Orders Levothyroxine [Synthroid -] 150 mcg PO DAILY #30 tablet 03/21/19 Amlodipine Besylate 5 mg PO DAILY 07/24/19 Lisinopril 10 mg PO DAILY 07/24/19 Thiamine HCl [Vitamin B1 -] 100 mg PO DAILY 07/24/19 Tiotropium [place] [Spiriva Respimat] 2.5 mcg IH DAILY 07/30/19 Lactulose (Oral Use) [Cephulac -] 20 gm PO TID #1 cup 01/26/20 - Diagnosis (1) Alcohol dependence with withdrawal Status: Acute Qualifiers: Complication of substance-induced condition: uncomplicated Qualified Code(s): F10.230 - Alcohol dependence with withdrawal, uncomplicated (2) Substance induced mood disorder Status: Suspected (3) Asthma Status: Chronic (4) Essential hypertension Status: Chronic (5) Hypothyroidism Status: Chronic (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 (7) Nicotine dependence Status: Acute Qualifiers: Nicotine product type: cigarettes Substance use status: in withdrawal Qualified Code(s): F17.213 - Nicotine dependence, cigarettes, with withdrawal (8) Substance induced mood disorder Status: Suspected (9) Syphilis contact, treated Status: Resolved - AMA Did Patient Leave Against Medical Advice: No CIWA Score - CIWA Score Nausea/Vomitin-No Nausea/No Vomiting Muscle Tremors: None Anxiety: 0-No Anxiety, at Ease Agitation: 0-Normal Activity Paroxysmal Sweats: No Perspiration Orientation: 0-Oriented Tacttile Disturbances: 0-None Auditory Disturbances: 0-None Visual Disturbances: 0-None Headache: 0-None Present CIWA-Ar Total Score: 0
== END 2020-01-26 09:38 | disposition home or self-care (01) | DRG 773 ==
LOC: YASAS 17:58 → Y3N 21:29
PROVIDERS: ADMIT Allergy & Immunology; ATTEND Allergy & Immunology
PROC: HZ2ZZZZ Detoxification Services for Substance Abuse Treatment (ICD-10-PCS; principal; 2020-01-20)
DX: F10.230 Alcohol dependence with withdrawal, uncomplicated (principal); F11.20 Opioid dependence, uncomplicated; F17.213 Nicotine dependence, cigarettes, with withdrawal; F19.24 Other psychoactive substance dependence with psychoactive substance-induced mood disorder; E03.9 Hypothyroidism, unspecified; I10 Essential (primary) hypertension; J45.909 Unspecified asthma, uncomplicated; Z86.19 Personal history of other infectious and parasitic diseases
CPT/HCPCS: 36415; 80053; 82140; 85027; 86593; 86780; 86803; 93005; 93010; Q0162; U0003

== ENCOUNTER 2020-08-06 14:23 | Inpatient (IN) | payer OTHER ==
[2020-08-06] MEDS ORDERED: MENTHOL/PHENOL 1 EACH UD MM PRN (15:22)
[2020-08-06] MEDS ORDERED: MAG HYDROX/AL HYDROX/SIMETH 30 ML UNIT-DOSE CUP PO PRN (15:22)
[2020-08-06] MEDS ORDERED: LOPERAMIDE HCL 2 MG CAPSULE PO PRN (15:22)
[2020-08-06] MEDS ORDERED: MAGNESIUM CITRATE 300 ML BOTTLE PO PRN (15:22)
[2020-08-06] MEDS ORDERED: guaiFENesin 200 MG/10 ML 10 ML UNIT-DOSE CUPS PO PRN (15:22)
[2020-08-06] MEDS ORDERED: MAGNESIUM HYDROX 2400MG/30ML ORAL SUSPENSION 30 ML CUP PO PRN (15:22)
[2020-08-06] MEDS ORDERED: P-EPHED 60MG/TRIPROLIDI 2.5MG TABLET PO PRN (15:22)
[2020-08-06] MEDS: MELATONIN 5 MG TABLETS PO SCH (21:13)
[2020-08-06] MEDS: THIAMINE HCL 100 MG TABLET (FP) PO SCH (21:13)
[2020-08-07] MEDS ORDERED: METHADONE HCL 40 MG DISPERSABLE TABLET PO SCH (06:00)
[2020-08-07] MEDS ORDERED: METHADONE HCL 10 MG TABLET ONE (06:34)
[2020-08-07] MEDS: METHADONE 40 MG, METHADONE 30 MG PO SCH (06:34)
[2020-08-07] MEDS ORDERED: METHADONE HCL 40 MG DISPERSABLE TABLET ONE (06:34)
[2020-08-07] MEDS ORDERED: MASKS NR ONE (07:02)
[2020-08-07] MEDS ORDERED: LEVOTHYROXINE NA 100 MCG TABLET (FP) ONE (07:06)
[2020-08-07] MEDS ORDERED: LEVOTHYROXINE NA 25 MCG TABLET (FP) ONE (07:06)
[2020-08-07] MEDS: LEVOTHYROXINE 100 MCG, LEVOTHYROXINE 50 MCG PO SCH (07:18)
[2020-08-07] MEDS ORDERED: LEVOTHYROXINE NA 150 MCG TABLET PO SCH (10:00)
[2020-08-07] MEDS: ASPIRIN 81 MG CHEWABLE TABLETS PO SCH (10:07)
[2020-08-07] MEDS: PRENATAL VITAMINS W/ FOLIC ACID TABLET (FP) PO SCH (10:07)
[2020-08-07] MEDS: ESCITALOPRAM OXALATE 10 MG TABLET PO SCH (10:07)
[2020-08-07] MEDS: MELATONIN 5 MG TABLETS PO SCH (21:14)
[2020-08-07] MEDS: THIAMINE HCL 100 MG TABLET (FP) PO SCH (21:14)
[2020-08-08] MEDS ORDERED: METHADONE HCL 10 MG TABLET ONE (05:07)
[2020-08-08] MEDS ORDERED: METHADONE HCL 40 MG DISPERSABLE TABLET ONE (05:07)
[2020-08-08] MEDS: METHADONE 40 MG, METHADONE 30 MG PO SCH (06:09)
[2020-08-08] MEDS: LEVOTHYROXINE 100 MCG, LEVOTHYROXINE 50 MCG PO SCH (06:10)
[2020-08-08] MEDS: PRENATAL VITAMINS W/ FOLIC ACID TABLET (FP) PO SCH (09:31)
[2020-08-08] MEDS: ASPIRIN 81 MG CHEWABLE TABLETS PO SCH (09:31)
[2020-08-08] MEDS: ESCITALOPRAM OXALATE 10 MG TABLET PO SCH (09:31)
[2020-08-08] MEDS: hydrOXYzine PAMOATE 25 MG CAPSULE (FP) PO PRN (21:45)
[2020-08-08] MEDS: MELATONIN 5 MG TABLETS PO SCH (21:45)
[2020-08-08] MEDS: THIAMINE HCL 100 MG TABLET (FP) PO SCH (21:45)
[2020-08-09] MEDS ORDERED: METHADONE HCL 10 MG TABLET ONE (03:21)
[2020-08-09] MEDS ORDERED: METHADONE HCL 40 MG DISPERSABLE TABLET ONE (03:21)
[2020-08-09] MEDS ORDERED: LEVOTHYROXINE NA 100 MCG TABLET (FP) ONE (06:41)
[2020-08-09] MEDS ORDERED: LEVOTHYROXINE NA 25 MCG TABLET (FP) ONE (06:41)
[2020-08-09] MEDS: LEVOTHYROXINE 100 MCG, LEVOTHYROXINE 50 MCG PO SCH (07:00)
[2020-08-09] MEDS: METHADONE 40 MG, METHADONE 30 MG PO SCH (07:00)
[2020-08-09] MEDS: ESCITALOPRAM OXALATE 10 MG TABLET PO SCH (09:57)
[2020-08-09] MEDS: ASPIRIN 81 MG CHEWABLE TABLETS PO SCH (09:57)
[2020-08-09] MEDS: PRENATAL VITAMINS W/ FOLIC ACID TABLET (FP) PO SCH (09:57)
[2020-08-09] MEDS: MELATONIN 5 MG TABLETS PO SCH (21:11)
[2020-08-09] MEDS: THIAMINE HCL 100 MG TABLET (FP) PO SCH (21:11)
[2020-08-10] MEDS ORDERED: METHADONE HCL 10 MG TABLET ONE (03:51)
[2020-08-10] MEDS ORDERED: METHADONE HCL 40 MG DISPERSABLE TABLET ONE (03:51)
[2020-08-10] MEDS: LEVOTHYROXINE 100 MCG, LEVOTHYROXINE 50 MCG PO SCH (06:06)
[2020-08-10] MEDS: METHADONE 40 MG, METHADONE 30 MG PO SCH (06:06)
[2020-08-10] MEDS: ASPIRIN 81 MG CHEWABLE TABLETS PO SCH (10:08)
[2020-08-10] MEDS: ESCITALOPRAM OXALATE 10 MG TABLET PO SCH (10:08)
[2020-08-10] MEDS: PRENATAL VITAMINS W/ FOLIC ACID TABLET (FP) PO SCH (10:08)
[2020-08-10] MEDS: THIAMINE HCL 100 MG TABLET (FP) PO SCH (21:39)
[2020-08-10] MEDS: MELATONIN 5 MG TABLETS PO SCH (21:39)
[2020-08-11] MEDS ORDERED: METHADONE HCL 10 MG TABLET ONE (03:18)
[2020-08-11] MEDS ORDERED: METHADONE HCL 40 MG DISPERSABLE TABLET ONE (03:18)
[2020-08-11] MEDS: METHADONE 40 MG, METHADONE 30 MG PO SCH (06:05)
[2020-08-11] MEDS: LEVOTHYROXINE 100 MCG, LEVOTHYROXINE 50 MCG PO SCH (06:05)
[2020-08-11] MEDS: PRENATAL VITAMINS W/ FOLIC ACID TABLET (FP) PO SCH (09:51)
[2020-08-11] MEDS: hydrOXYzine PAMOATE 25 MG CAPSULE (FP) PO PRN (09:52)
[2020-08-11] MEDS: ASPIRIN 81 MG CHEWABLE TABLETS PO SCH (09:52)
[2020-08-11] MEDS: ESCITALOPRAM OXALATE 10 MG TABLET PO SCH (09:52)
[2020-08-11] MEDS: MELATONIN 5 MG TABLETS PO SCH (21:48)
[2020-08-11] MEDS: THIAMINE HCL 100 MG TABLET (FP) PO SCH (21:48)
[2020-08-12] MEDS ORDERED: METHADONE HCL 10 MG TABLET ONE (03:26)
[2020-08-12] MEDS ORDERED: METHADONE HCL 40 MG DISPERSABLE TABLET ONE (03:26)
[2020-08-12] MEDS: METHADONE 40 MG, METHADONE 30 MG PO SCH (06:19)
[2020-08-12] MEDS: LEVOTHYROXINE 100 MCG, LEVOTHYROXINE 50 MCG PO SCH (06:22)
[2020-08-12] MEDS: ASPIRIN 81 MG CHEWABLE TABLETS PO SCH (09:52)
[2020-08-12] MEDS: ESCITALOPRAM OXALATE 10 MG TABLET PO SCH (09:52)
[2020-08-12] MEDS: PRENATAL VITAMINS W/ FOLIC ACID TABLET (FP) PO SCH (09:53)
[2020-08-12] MEDS: THIAMINE HCL 100 MG TABLET (FP) PO SCH (21:37)
[2020-08-12] MEDS: MELATONIN 5 MG TABLETS PO SCH (21:37)
[2020-08-13] MEDS ORDERED: METHADONE HCL 10 MG TABLET ONE (03:50)
[2020-08-13] MEDS ORDERED: METHADONE HCL 40 MG DISPERSABLE TABLET ONE (03:50)
[2020-08-13] MEDS: METHADONE 40 MG, METHADONE 30 MG PO SCH (06:10)
[2020-08-13] MEDS: LEVOTHYROXINE 100 MCG, LEVOTHYROXINE 50 MCG PO SCH (06:11)
[2020-08-13] MEDS: ASPIRIN 81 MG CHEWABLE TABLETS PO SCH (09:33)
[2020-08-13] MEDS: ESCITALOPRAM OXALATE 10 MG TABLET PO SCH (09:34)
[2020-08-13] MEDS: PRENATAL VITAMINS W/ FOLIC ACID TABLET (FP) PO SCH (09:34)
[2020-08-13] MEDS: hydrOXYzine PAMOATE 25 MG CAPSULE (FP) PO PRN (09:34)
[2020-08-13] MEDS: MELATONIN 5 MG TABLETS PO SCH (21:15)
[2020-08-13] MEDS: THIAMINE HCL 100 MG TABLET (FP) PO SCH (21:15)
[2020-08-14] MEDS ORDERED: METHADONE HCL 40 MG DISPERSABLE TABLET ONE (03:32)
[2020-08-14] MEDS ORDERED: METHADONE HCL 10 MG TABLET ONE (03:32)
[2020-08-14] MEDS: METHADONE 40 MG, METHADONE 30 MG PO SCH (05:58)
[2020-08-14] MEDS: LEVOTHYROXINE 100 MCG, LEVOTHYROXINE 50 MCG PO SCH (05:59)
[2020-08-14] MEDS: ASPIRIN 81 MG CHEWABLE TABLETS PO SCH (09:30)
[2020-08-14] MEDS: PRENATAL VITAMINS W/ FOLIC ACID TABLET (FP) PO SCH (09:30)
[2020-08-14] MEDS: ESCITALOPRAM OXALATE 10 MG TABLET PO SCH (09:30)
[2020-08-14] MEDS: THIAMINE HCL 100 MG TABLET (FP) PO SCH (21:34)
[2020-08-14] MEDS: IBUPROFEN 400 MG TABLET (FP) PO PRN (21:34)
[2020-08-14] MEDS: MELATONIN 5 MG TABLETS PO SCH (21:34)
[2020-08-15] MEDS ORDERED: METHADONE HCL 10 MG TABLET ONE (03:06)
[2020-08-15] MEDS ORDERED: METHADONE HCL 40 MG DISPERSABLE TABLET ONE (03:06)
[2020-08-15] MEDS: METHADONE 40 MG, METHADONE 30 MG PO SCH (06:09)
[2020-08-15] MEDS: LEVOTHYROXINE 100 MCG, LEVOTHYROXINE 50 MCG PO SCH (06:10)
[2020-08-15] MEDS: ESCITALOPRAM OXALATE 10 MG TABLET PO SCH (09:39)
[2020-08-15] MEDS: IBUPROFEN 400 MG TABLET (FP) PO PRN (09:39)
[2020-08-15] MEDS: PRENATAL VITAMINS W/ FOLIC ACID TABLET (FP) PO SCH (09:39)
[2020-08-15] MEDS: ASPIRIN 81 MG CHEWABLE TABLETS PO SCH (09:41)
[2020-08-15] MEDS: INDOMETHACIN 25 MG CAPSULE PO SCH ×2 (13:00→21:13)
[2020-08-15] MEDS: MELATONIN 5 MG TABLETS PO SCH (21:13)
[2020-08-15] MEDS: THIAMINE HCL 100 MG TABLET (FP) PO SCH (21:13)
[2020-08-15] MEDS: ACETAMINOPHEN 325 MG TABLET (FP) PO PRN (21:14)
[2020-08-16] MEDS ORDERED: METHADONE HCL 40 MG DISPERSABLE TABLET ONE (03:36)
[2020-08-16] MEDS ORDERED: METHADONE HCL 10 MG TABLET ONE (03:36)
[2020-08-16] MEDS: METHADONE 40 MG, METHADONE 30 MG PO SCH (06:02)
[2020-08-16] MEDS: LEVOTHYROXINE 100 MCG, LEVOTHYROXINE 50 MCG PO SCH (06:02)
[2020-08-16] MEDS: ESCITALOPRAM OXALATE 10 MG TABLET PO SCH (09:34)
[2020-08-16] MEDS: INDOMETHACIN 25 MG CAPSULE PO SCH ×2 (09:34→21:13)
[2020-08-16] MEDS: PRENATAL VITAMINS W/ FOLIC ACID TABLET (FP) PO SCH (09:34)
[2020-08-16] MEDS: ASPIRIN 81 MG CHEWABLE TABLETS PO SCH (09:34)
[2020-08-16] MEDS: THIAMINE HCL 100 MG TABLET (FP) PO SCH (21:12)
[2020-08-16] MEDS: MELATONIN 5 MG TABLETS PO SCH (21:12)
[2020-08-17] MEDS ORDERED: METHADONE HCL 10 MG TABLET ONE (03:33)
[2020-08-17] MEDS ORDERED: METHADONE HCL 40 MG DISPERSABLE TABLET ONE (03:34)
[2020-08-17] MEDS: METHADONE 40 MG, METHADONE 30 MG PO SCH (06:18)
[2020-08-17] MEDS: LEVOTHYROXINE 100 MCG, LEVOTHYROXINE 50 MCG PO SCH (06:19)
[2020-08-17] MEDS: ASPIRIN 81 MG CHEWABLE TABLETS PO SCH (09:41)
[2020-08-17] MEDS: ESCITALOPRAM OXALATE 10 MG TABLET PO SCH (09:42)
[2020-08-17] MEDS: PRENATAL VITAMINS W/ FOLIC ACID TABLET (FP) PO SCH (09:42)
[2020-08-17] MEDS: INDOMETHACIN 25 MG CAPSULE PO SCH ×2 (09:42→21:20)
[2020-08-17] MEDS: MELATONIN 5 MG TABLETS PO SCH (21:20)
[2020-08-17] MEDS: THIAMINE HCL 100 MG TABLET (FP) PO SCH (21:20)
[2020-08-17] MEDS: ACETAMINOPHEN 325 MG TABLET (FP) PO PRN (21:20)
[2020-08-18] MEDS ORDERED: METHADONE HCL 10 MG TABLET ONE (03:15)
[2020-08-18] MEDS ORDERED: METHADONE HCL 40 MG DISPERSABLE TABLET ONE (03:15)
[2020-08-18] MEDS ORDERED: LEVOTHYROXINE NA 100 MCG TABLET (FP) ONE (03:23)
[2020-08-18] MEDS ORDERED: LEVOTHYROXINE NA 25 MCG TABLET (FP) ONE (03:23)
[2020-08-18] MEDS: METHADONE 40 MG, METHADONE 30 MG PO SCH (06:09)
[2020-08-18] MEDS: LEVOTHYROXINE 100 MCG, LEVOTHYROXINE 50 MCG PO SCH (06:09)
[2020-08-18] MEDS: PRENATAL VITAMINS W/ FOLIC ACID TABLET (FP) PO SCH (09:44)
[2020-08-18] MEDS: ASPIRIN 81 MG CHEWABLE TABLETS PO SCH (09:44)
[2020-08-18] MEDS: INDOMETHACIN 25 MG CAPSULE PO SCH ×2 (09:44→21:43)
[2020-08-18] MEDS: ESCITALOPRAM OXALATE 10 MG TABLET PO SCH (09:44)
[2020-08-18] MEDS: THIAMINE HCL 100 MG TABLET (FP) PO SCH (21:43)
[2020-08-18] MEDS: MELATONIN 5 MG TABLETS PO SCH (21:43)
[2020-08-19] MEDS ORDERED: METHADONE HCL 40 MG DISPERSABLE TABLET ONE (03:24)
[2020-08-19] MEDS ORDERED: METHADONE HCL 10 MG TABLET ONE (03:24)
[2020-08-19] MEDS: LEVOTHYROXINE 100 MCG, LEVOTHYROXINE 50 MCG PO SCH (06:15)
[2020-08-19] MEDS: METHADONE 40 MG, METHADONE 30 MG PO SCH (06:15)
[2020-08-19 07:06] VITALS: BP 136/87; PULSE 86; TEMP 97.5
[2020-08-19] MEDS: ESCITALOPRAM OXALATE 10 MG TABLET PO SCH (09:27)
[2020-08-19] MEDS: ASPIRIN 81 MG CHEWABLE TABLETS PO SCH (09:27)
[2020-08-19] MEDS: PRENATAL VITAMINS W/ FOLIC ACID TABLET (FP) PO SCH (09:27)
[2020-08-19] MEDS: INDOMETHACIN 25 MG CAPSULE PO SCH (09:28)
== END 2020-08-19 09:30 | disposition home or self-care (01) | DRG 772 ==
LOC: YASAS 14:23 → Y5N 14:24
PROVIDERS: ADMIT Allergy & Immunology; ATTEND Allergy & Immunology
PROC: HZ42ZZZ Group Counseling for Substance Abuse Treatment, Cognitive-Behavioral (ICD-10-PCS; principal; 2020-08-06)
DX: F10.20 Alcohol dependence, uncomplicated (principal); F14.20 Cocaine dependence, uncomplicated; F11.20 Opioid dependence, uncomplicated; F17.210 Nicotine dependence, cigarettes, uncomplicated; F32.9 Major depressive disorder, single episode, unspecified; G47.00 Insomnia, unspecified; E78.5 Hyperlipidemia, unspecified; E03.9 Hypothyroidism, unspecified; I10 Essential (primary) hypertension; J45.909 Unspecified asthma, uncomplicated; R22.31 Localized swelling, mass and lump, right upper limb; L53.8 Other specified erythematous conditions
CPT/HCPCS: 36415; 84550; C9803; U0003

== ENCOUNTER 2022-04-17 10:48 | Inpatient (IN) | payer OTHER ==
[2022-04-17 11:46] VITALS: BMI 19.9
[2022-04-17] MEDS ORDERED: BENZOCAINE/MENTHOL (CHLORASEPTIC ) LOZENGE MM PRN (12:07)
[2022-04-17] MEDS ORDERED: METHOCARBAMOL 500 MG TABLET PO PRN (12:07)
[2022-04-17] MEDS ORDERED: MAG HYDROX/AL HYDROX/SIMETH 30 ML UNIT-DOSE CUP PO PRN (12:07)
[2022-04-17] MEDS ORDERED: chlordiazePOXIDE HCL 25 MG CAPSULE PO PRN (12:07)
[2022-04-17] MEDS ORDERED: LOPERAMIDE HCL 2 MG CAPSULE PO PRN (12:07)
[2022-04-17] MEDS ORDERED: ACETAMINOPHEN 325 MG TABLET (FP) PO PRN ×2 (12:07)
[2022-04-17] MEDS ORDERED: IBUPROFEN 600 MG TABLET (FP) PO PRN (12:07)
[2022-04-17] MEDS ORDERED: DICYCLOMINE HCL 10 MG CAPSULE PO PRN (12:07)
[2022-04-17] MEDS ORDERED: IBUPROFEN 400 MG TABLET (FP) PO PRN (12:07)
[2022-04-17] MEDS ORDERED: MAGNESIUM HYDROX 2400MG/30ML ORAL SUSPENSION 30 ML CUP PO PRN (12:07)
[2022-04-17] MEDS ORDERED: MAGNESIUM CITRATE 300 ML BOTTLE PO PRN (12:07)
[2022-04-17] MEDS ORDERED: NALOXONE HCL (KLOXXADO) 8 MG SPRAY NS PRN (12:07)
[2022-04-17] MEDS ORDERED: ONDANSETRON *ODT* 4 MG TABLET SL PRN (12:07)
[2022-04-17] MEDS ORDERED: BISMUTH SUBSALICYLATE 262 MG/15 ML BTL PO PRN (12:07)
[2022-04-17] MEDS ORDERED: NICOTINE 10 MG CARTRIDGE (INHALER) IH PRN (12:07)
[2022-04-17] MEDS ORDERED: HYDROCORTISONE 1% TOPICAL CREAM 30 GM TUBE TP PRN (12:30)
[2022-04-17] MEDS: hydrOXYzine PAMOATE 25 MG CAPSULE (FP) PO SCH ×3 (13:19→22:08)
[2022-04-17] MEDS: chlordiazePOXIDE HCL 25 MG CAPSULE PO SCH ×2 (17:30→22:08)
[2022-04-17] MEDS: THIAMINE HCL 100 MG TABLET (FP) PO SCH (22:08)
[2022-04-17] MEDS: MELATONIN 5 MG TABLETS PO SCH (22:08)
[2022-04-17] MEDS: SUVOREXANT 5 MG TABLET PO PRN (22:09)
[2022-04-18] MEDS: LEVOTHYROXINE 100 MCG, LEVOTHYROXINE 50 MCG PO SCH (05:59)
[2022-04-18] MEDS: chlordiazePOXIDE HCL 25 MG CAPSULE PO SCH ×2 (06:00→10:02)
[2022-04-18] MEDS: hydrOXYzine PAMOATE 25 MG CAPSULE (FP) PO SCH ×5 (06:01→22:08)
[2022-04-18] MEDS: methaDONE 40 MG, methaDONE 30 MG PO SCH (09:45)
[2022-04-18] MEDS: LISINOPRIL 10 MG TABLET PO SCH (09:46)
[2022-04-18] MEDS: PRENATAL VITAMINS W/ FOLIC ACID TABLET (FP) PO SCH (09:46)
[2022-04-18] MEDS: amLODIPine BESYLATE 10 MG TABLET (FP) PO SCH (09:46)
[2022-04-18] MEDS ORDERED: LEVOTHYROXINE NA 150 MCG TABLET PO SCH (10:00)
[2022-04-18] MEDS ORDERED: methaDONE HCL 40 MG DISPERSABLE TABLET PO SCH (10:00)
[2022-04-18 10:31] LABS: HEMATOCRIT 41.6 % (35.4-49); HEMOGLOBIN 13.9 GM/dL (11.7-16.9); MCHC 33.3 g/dl (32.0-35.9); MEAN CELL VOLUME 95.9 fl (80-96); MEAN PLT VOLUME 8.9 fl (7.5-11.1); PLATELET COUNT 284 10^3/uL (134-434); RBC 4.34 M/mm3 (4.00-5.60); RDW 13.8 % (11.9-15.9)
[2022-04-18 10:34] LABS: BLOOD UREA NITROGEN 16.1 mg/dL (7-18)
[2022-04-18 10:35] LABS: CALCIUM 8.8 mg/dL (8.5-10.1)
[2022-04-18 10:36] LABS: ALBUMIN 3.7 g/dl (3.4-5.0)
[2022-04-18 10:37] LABS: CREATININE 0.7 mg/dL (0.55-1.3)
[2022-04-18 10:38] LABS: BILIRUBIN,TOTAL 0.4 mg/dL (0.2-1); TOT PROT 8.1 g/dl (6.4-8.2)
[2022-04-18] MEDS ORDERED: LORazepam 1 MG TABLET PO PRN (10:56)
[2022-04-18] MEDS: LACTULOSE 20 GM/30 ML UDC (FOR ORAL USE ONLY) PO SCH ×3 (14:03→22:08)
[2022-04-18] MEDS: LORazepam 2 MG TABLET PO SCH ×2 (17:53→22:07)
[2022-04-18] MEDS: MELATONIN 5 MG TABLETS PO SCH (22:08)
[2022-04-18] MEDS: THIAMINE HCL 100 MG TABLET (FP) PO SCH (22:08)
[2022-04-18] MEDS: SUVOREXANT 5 MG TABLET PO PRN (22:10)
[2022-04-19] MEDS ORDERED: chlordiazePOXIDE HCL 25 MG CAPSULE PO SCH (05:00)
[2022-04-19] MEDS: hydrOXYzine PAMOATE 25 MG CAPSULE (FP) PO SCH ×5 (05:13→22:16)
[2022-04-19] MEDS: LORazepam 2 MG TABLET PO SCH ×4 (05:14→22:17)
[2022-04-19] MEDS: LEVOTHYROXINE 100 MCG, LEVOTHYROXINE 50 MCG PO SCH (07:36)
[2022-04-19] MEDS: methaDONE 40 MG, methaDONE 30 MG PO SCH (10:13)
[2022-04-19] MEDS: LACTULOSE 20 GM/30 ML UDC (FOR ORAL USE ONLY) PO SCH ×4 (10:13→22:17)
[2022-04-19] MEDS: PRENATAL VITAMINS W/ FOLIC ACID TABLET (FP) PO SCH (10:13)
[2022-04-19] MEDS: amLODIPine BESYLATE 10 MG TABLET (FP) PO SCH (10:13)
[2022-04-19] MEDS: LISINOPRIL 10 MG TABLET PO SCH (10:13)
[2022-04-19 11:20] LABS: ALBUMIN 3.3 g/dl (3.4-5.0); BLOOD UREA NITROGEN 13.5 mg/dL (7-18)
[2022-04-19 11:23] LABS: CALCIUM 9.1 mg/dL (8.5-10.1); CREATININE 0.5 mg/dL (0.55-1.3)
[2022-04-19 11:25] LABS: TOT PROT 7.4 g/dl (6.4-8.2)
[2022-04-19 11:26] LABS: BILIRUBIN,TOTAL 0.5 mg/dL (0.2-1)
[2022-04-19] MEDS: THIAMINE HCL 100 MG TABLET (FP) PO SCH (22:16)
[2022-04-19] MEDS: SUVOREXANT 5 MG TABLET PO PRN (22:16)
[2022-04-19] MEDS: MELATONIN 5 MG TABLETS PO SCH (22:16)
[2022-04-20] MEDS ORDERED: chlordiazePOXIDE HCL 10 MG CAPSULE PO PRN
[2022-04-20] MEDS ORDERED: chlordiazePOXIDE HCL 10 MG CAPSULE PO SCH (05:00)
[2022-04-20] MEDS: LORazepam 1 MG TABLET PO SCH ×4 (06:55→22:37)
[2022-04-20] MEDS: hydrOXYzine PAMOATE 25 MG CAPSULE (FP) PO SCH ×5 (06:57→22:15)
[2022-04-20] MEDS: LEVOTHYROXINE 100 MCG, LEVOTHYROXINE 50 MCG PO SCH (07:18)
[2022-04-20] MEDS: LACTULOSE 20 GM/30 ML UDC (FOR ORAL USE ONLY) PO SCH ×4 (10:39→22:16)
[2022-04-20] MEDS: methaDONE 40 MG, methaDONE 30 MG PO SCH (10:39)
[2022-04-20] MEDS: amLODIPine BESYLATE 10 MG TABLET (FP) PO SCH (10:39)
[2022-04-20] MEDS: PRENATAL VITAMINS W/ FOLIC ACID TABLET (FP) PO SCH (10:40)
[2022-04-20] MEDS: LISINOPRIL 10 MG TABLET PO SCH (10:40)
[2022-04-20 13:25] LABS: ALK PHOS 127 U/L (45-117); SGOT/AST 63 U/L (15-37); SGPT/ALT 96 U/L (13-61)
[2022-04-20] MEDS: MELATONIN 5 MG TABLETS PO SCH (22:15)
[2022-04-20] MEDS: THIAMINE HCL 100 MG TABLET (FP) PO SCH (22:16)
[2022-04-20] MEDS: SUVOREXANT 5 MG TABLET PO PRN (22:17)
[2022-04-21] MEDS ORDERED: LORazepam 0.5 MG TABLET PO PRN
[2022-04-21] MEDS ORDERED: chlordiazePOXIDE HCL 10 MG CAPSULE PO SCH (05:00)
[2022-04-21] MEDS: hydrOXYzine PAMOATE 25 MG CAPSULE (FP) PO SCH ×5 (05:31→22:29)
[2022-04-21] MEDS: LORazepam 0.5 MG TABLET PO SCH ×4 (05:32→22:29)
[2022-04-21] MEDS: LEVOTHYROXINE 100 MCG, LEVOTHYROXINE 50 MCG PO SCH (06:08)
[2022-04-21] MEDS: PRENATAL VITAMINS W/ FOLIC ACID TABLET (FP) PO SCH (10:38)
[2022-04-21] MEDS: methaDONE 40 MG, methaDONE 30 MG PO SCH (10:40)
[2022-04-21] MEDS: amLODIPine BESYLATE 10 MG TABLET (FP) PO SCH (10:40)
[2022-04-21] MEDS: LISINOPRIL 10 MG TABLET PO SCH (10:40)
[2022-04-21] MEDS: LACTULOSE 20 GM/30 ML UDC (FOR ORAL USE ONLY) PO SCH ×4 (11:27→22:29)
[2022-04-21] MEDS: SUVOREXANT 5 MG TABLET PO PRN (22:29)
[2022-04-21] MEDS: THIAMINE HCL 100 MG TABLET (FP) PO SCH (22:29)
[2022-04-21] MEDS: MELATONIN 5 MG TABLETS PO SCH (22:29)
[2022-04-22] MEDS ORDERED: LORazepam 0.5 MG TABLET PO ONE (05:00)
[2022-04-22] MEDS ORDERED: chlordiazePOXIDE HCL 10 MG CAPSULE PO ONE (05:00)
[2022-04-22] MEDS: hydrOXYzine PAMOATE 25 MG CAPSULE (FP) PO SCH ×2 (05:44→09:49)
[2022-04-22] MEDS: LEVOTHYROXINE 100 MCG, LEVOTHYROXINE 50 MCG PO SCH (07:01)
[2022-04-22 09:25] VITALS: BP 122/75; PULSE 68; RESP 19; TEMP 97.5
[2022-04-22] MEDS: LISINOPRIL 10 MG TABLET PO SCH (09:49)
[2022-04-22] MEDS: amLODIPine BESYLATE 10 MG TABLET (FP) PO SCH (09:49)
[2022-04-22] MEDS: LACTULOSE 20 GM/30 ML UDC (FOR ORAL USE ONLY) PO SCH (09:49)
[2022-04-22] MEDS: methaDONE 40 MG, methaDONE 30 MG PO SCH (09:49)
[2022-04-22] MEDS: PRENATAL VITAMINS W/ FOLIC ACID TABLET (FP) PO SCH (09:50)
== END 2022-04-22 12:23 | disposition home or self-care (01) | DRG 773 ==
LOC: YASAS 10:48 → Y3N 12:45
PROVIDERS: ADMIT Allergy & Immunology; ATTEND Surgery
PROC: HZ2ZZZZ Detoxification Services for Substance Abuse Treatment (ICD-10-PCS; principal; 2022-04-17)
DX: F10.230 Alcohol dependence with withdrawal, uncomplicated (principal); F11.20 Opioid dependence, uncomplicated; F14.20 Cocaine dependence, uncomplicated; F17.210 Nicotine dependence, cigarettes, uncomplicated; F19.24 Other psychoactive substance dependence with psychoactive substance-induced mood disorder; F19.282 Other psychoactive substance dependence with psychoactive substance-induced sleep disorder; E03.9 Hypothyroidism, unspecified; I10 Essential (primary) hypertension; J44.9 Chronic obstructive pulmonary disease, unspecified; M10.9 Gout, unspecified; R21 Rash and other nonspecific skin eruption; R76.8 Other specified abnormal immunological findings in serum; R79.89 Other specified abnormal findings of blood chemistry; R74.8 Abnormal levels of other serum enzymes; Z28.311 Partially vaccinated for COVID-19
CPT/HCPCS: 36415; 80053; 82140; 83036; 84075; 84443; 84450; 84460; 85027; 86593; 86780; C9803-CS; U0003; U0005